=== PATIENT | female | born 1985 | race Caucasian/White ===

== ENCOUNTER → 2017-11-16 12:05 | Outpatient (CLI) | payer OTHER, SELFPAY ==
[2017-11-16 13:29] LABS: HCG Quantitative /Beta subunit 395.89 mIU/mL
== END ==
PROVIDERS: PCP Family Medicine; Visit Provider Family Medicine
DX: Z34.90 Encounter for supervision of normal pregnancy, unspecified, unspecified trimester (principal)
CPT/HCPCS: 36415; 84702

== ENCOUNTER → 2017-11-18 12:31 | Outpatient (CLI) | payer OTHER, SELFPAY ==
[2017-11-18 14:32] LABS: HCG Quantitative /Beta subunit 1171.5 mIU/mL
== END ==
PROVIDERS: PCP Family Medicine; Visit Provider Family Medicine
DX: N91.2 Amenorrhea, unspecified (principal)
CPT/HCPCS: 36415; 84702

== ENCOUNTER → 2017-12-17 09:46 | Outpatient (CLI) | payer OTHER, SELFPAY ==
[2017-12-17 10:23] LABS: Add Manual Diff / Slide Review NO; Basophils Percent Auto 0.3 % (0-2); Eosinophils Percent Auto 2.5 % (2-4); Hematocrit 42.2 % (36-46); Hemoglobin 14.2 g/dL (12.0-16.0); Lymphocytes Percent Auto 18.7 % (25-40); Mean Corpuscular HGB Conc 33.7 % (30-36); Mean Corpuscular Hemoglobin 28.9 PG (26-34); Mean Corpuscular Volume 85.9 fL (80-100); Monocytes Percent Auto 4.8 % (3-14); Neutrophils Absolute Auto 5200 /uL (3000-5900); Neutrophils Percent Auto 73.7 % (50-75); Platelet Count 207 X10^3/uL (150-400); Red Blood Cell Count 4.92 X10^6/uL (4.0-5.2); Red Cell Distribution Width 13.5 % (11.6-14.8)
[2017-12-17 11:31] LABS: Hepatitis B Surface Antigen NEGATIVE s/c (NEGATIVE); Rubella Antibody IgG 4.8 IU/mL (>15)
[2017-12-17 11:40] LABS: Appearance Urine UA SL CLOUDY; Bilirubin Urine UA NEGATIVE (NEGATIVE); Color Urine UA YELLOW; Glucose Urine UA NEGATIVE (Normal); Ketones Urine UA TRACE (NEGATIVE); Leukocyte Esterase Urine UA TRACE (NEGATIVE); Nitrite Urine UA Negative (Negative); Occult Blood Urine UA NEGATIVE (Negative); Protein Urine UA 1+ (Negative)
[2017-12-17 11:41] LABS: Bacteria Urine None Seen
[2017-12-17 11:45] LABS: RBC Urine 0-1/HPF (0-5/HPF)
[2017-12-17 11:46] LABS: Mucus Urine 2+ (Negative); Squamous Epithelial Cell Urine 5-10 /HPF; WBC Urine 0-1/HPF (0-5/HPF)
[2017-12-17 11:48] LABS: HIV 1 and 2 Antibody NEGATIVE (NEGATIVE); Hep C Virus Ab w/Reflex Quant NEGATIVE s/c (NEGATIVE)
[2017-12-18 15:12] LABS: HSV 2 IGG AB < 0.90 index (< 0.90); HSV1IGG 1.98 index (< 0.90)
[2017-12-18 16:30] LABS: RPR Screen Nonreactive (Nonreactive)
== END ==
PROVIDERS: PCP Family Medicine; Visit Provider Family Medicine
DX: Z34.81 Encounter for supervision of other normal pregnancy, first trimester (principal); Z3A.01 Less than 8 weeks gestation of pregnancy
CPT/HCPCS: 36415; 80055; 81003; 81015; 86695; 86696; 86703; 86787; 86803; 86850; 86900; 86901; 87077; 87086

== ENCOUNTER → 2018-02-25 08:19 | Outpatient (CLI) | payer OTHER, SELFPAY ==
--- NOTE | 2018-02-25 08:20 | DI.US.S_ITS ---
PROCEDURE: US OB >= 14 WEEKS FETUS INDICATIONS: 14 weeks OUTSIDE/PRIOR DATING DATA: Last menstrual period (LMP): Unknown. LMP-based estimated date of delivery (AKIN): N./A.. First dating scan (date and location): 12/21/17. Estimated date of delivery (AKIN) from first dating scan: 07/24/18. TECHNIQUE: Real-time scanning was performed of the fetus, with image documentation and biometric measurements. Endovaginal scanning: No COMPARISON: None. FINDINGS: General: A single living intrauterine gestation is present. Presentation: Breech. Placenta: Placental position is anterior, without previa. Amniotic fluid index: 14.8 cm, normal range is 5-24 cm. heart rate: 137 beats per minute. Maternal cervical canal: 4.1 cm long. Normal lower limit is 2.5 cm. biometrics: Biparietal diameter: 19 weeks 4 days Head circumference: 19 weeks 2 days Abdominal circumference: 19 weeks 6 days Femur length: 19 weeks 6 days Estimated gestational age from initial scan: 18 weeks 5 days Composite gestational age from present scan: 19 weeks 3 days Estimated weight and percentile: 280 g; 82nd percentile Measurement variability for biometric dating: +/- 7 days from 14 weeks to 15 weeks 6 days gestation, +/- 10 days from 16 weeks to 21 weeks 6 days gestation, +/- 2 weeks from 22 weeks to 27 weeks 6 days gestation, +/- 3 weeks for 28 weeks gestation or later. weight reference: 4500 g or EFW >90/95% is considered macrosomia or large for gestational age. EFW <10% is small for gestational age. EFW 5% or less is considered intra-uterine growth restriction. Anatomic survey: Neuro: Ventricles are non-dilated at less than 10 mm. Cisterna magna is normal at 3-11 mm. Cerebellum is normal in size and morphology. Nuchal skin fold: Normal at less than 6 mm between 14-21 weeks gestational age. Face: Nose and lips, facial profile are normal. Spine: No evidence for spina bifida. Heart: 4-chambered heart is present, with normal ventricular outflow tracts. Diaphragm: Diaphragm is intact. Stomach: Left-sided stomach is present. Kidneys: No hydronephrosis. Normal is less than 5 mm in 2nd trimester, less than 7 mm in 3rd trimester. Cord: 3-vessel cord has orthotopic insertion. Bladder: Normal in size. Extremities: All 4 extremities identified. IMPRESSION: 1. Single living IUP redemonstrated and interval growth is normal. 2. Normal anatomic survey. Dictated by: Rasta LUA Interpreted: Macey Moore MD on 02/25/2018 at 10:27 Approved by: Macey Moore M.D. on 02/25/2018 at 15:52
== END ==
PROVIDERS: PCP Family Medicine; Visit Provider Family Medicine
DX: Z34.82 Encounter for supervision of other normal pregnancy, second trimester (principal); Z3A.19 19 weeks gestation of pregnancy
CPT/HCPCS: 76811

== ENCOUNTER → 2018-04-27 09:48 | Outpatient (CLI) | payer OTHER, SELFPAY ==
[2018-04-27 12:11] LABS: Add Manual Diff / Slide Review NO; Basophils Absolute Auto 0 /uL (0-100); Basophils Percent Auto 0.2 % (0-2); Eosinophils Absolute Auto 100 /uL (0-450); Eosinophils Percent Auto 1.5 % (2-4); Hematocrit 35.7 % (36-46); Hemoglobin 11.8 g/dL (12.0-16.0); Lymphocytes Absolute Auto 1600 /uL (1100-4500); Lymphocytes Percent Auto 19.7 % (25-40); Mean Corpuscular HGB Conc 33.1 % (30-36); Mean Corpuscular Hemoglobin 29.2 PG (26-34); Mean Corpuscular Volume 88.3 fL (80-100); Monocytes Absolute Auto 300 /uL (0-900); Monocytes Percent Auto 4.2 % (3-14); Neutrophils Absolute Auto 6200 /uL (1500-7000); Neutrophils Percent Auto 74.4 % (50-75); Platelet Count 164 X10^3/uL (150-400); Red Blood Cell Count 4.05 X10^6/uL (4.0-5.2); Red Cell Distribution Width 13.7 % (11.6-14.8); White Blood Cell Count 8.3 X10^3/uL (4.5-11.0)
[2018-04-27 12:38] LABS: GTT (PREG) 1 Hour PP 50gm Dose 126 mg/dL (76-139)
== END ==
PROVIDERS: PCP Family Medicine; Visit Provider Family Medicine
DX: Z3A.25 25 weeks gestation of pregnancy (principal)
CPT/HCPCS: 36415; 82950; 85025

== ENCOUNTER → 2018-05-05 13:00 | Oncology outpatient (ONC) | payer OTHER, SELFPAY ==
[2018-01-10] MEDS: SODIUM CHLORIDE 0.9% 1,000 ML 1000 ML IV (13:11)
[2018-01-10 13:17] VITALS: BP 108/74; PULSE 58; RESP 18; TEMP 36.7
[2018-01-12] MEDS: SODIUM CHLORIDE 0.9% 1,000 ML 999 ML IV (13:41)
[2018-01-12 13:42] VITALS: BP 122/66; PULSE 62; RESP 16; TEMP 36.6
[2018-02-04] MEDS: SODIUM CHLORIDE 0.9% 1,000 ML 1000 ML IV (12:57)
[2018-02-04 13:00] VITALS: BP 115/54; PULSE 70; RESP 16; TEMP 36.7
--- NOTE | 2018-02-04 14:17 | PC.NURSE ---
Pt seen in clinic today for IV fluids. Pt reports nausea pretty much all the time. Pt currently about 16 week . Able to eat small portions. Denies chest pain and SOB. Denies dizziness and chest pain. Denies issues with bowel and bladder. Conversing with staff appropriately.
[2018-02-22 13:30] VITALS: BP 110/64; PULSE 82; RESP 18; TEMP 36.7; O2SAT 100
[2018-02-22] MEDS: SODIUM CHLORIDE 0.9% 1,000 ML 1000 ML IV (13:31)
[2018-02-25 13:11] VITALS: BP 120/64; PULSE 60; RESP 18; TEMP 36.6; O2SAT 100
[2018-02-25] MEDS: SODIUM CHLORIDE 0.9% 1,000 ML 1000 ML IV (13:23)
[2018-05-05] MEDS: SODIUM CHLORIDE 0.9% 1,000 ML 1000 ML IV (13:51)
== END ==
PROVIDERS: PCP Family Medicine; Visit Provider Family Medicine
DX: O21.0 Mild hyperemesis gravidarum (principal)
CPT/HCPCS: 76811; 96360; 96365

== ENCOUNTER → 2018-05-19 13:43 | Outpatient (CLI) | payer OTHER, SELFPAY ==
--- NOTE | 2018-05-19 13:45 | DI.US.S_ITS ---
PROCEDURE: US OB LIMITED INDICATIONS: SIZE LESS THAN DATES, CERVICAL LENGTH OUTSIDE/PRIOR DATING DATA: Last menstrual period (LMP): Unknown. LMP-based estimated date of delivery (AKIN): N./A.. First dating scan (date and location): 12/21/2017. Estimated date of delivery (AKIN) from first dating scan: 07/24/2018. TECHNIQUE: Real-time scanning was performed of the fetus, with image documentation and biometric measurements. COMPARISON: None. FINDINGS: General: A single living intrauterine gestation is present. Presentation: Vertex Placenta: Placental position is anterior, without previa. Amniotic fluid index: 16.1 cm, normal range is 5-24 cm. heart rate: 150 beats per minute. Maternal cervical canal: 4.2 cm long. Normal lower limit is 2.5 cm. biometrics: Biparietal diameter: 7.9 cm, correlating with 31 weeks and 6 days. Head circumference: 29.5 cm, correlating with 32 weeks and 4 days. Abdominal circumference: 30.3 cm, correlating with 34 weeks and 2 days. Femur length: 6.2 cm, correlating with 31 weeks and 6 days. Estimated gestational age from initial scan: not applicable. Composite gestational age from present scan: 32 weeks and 5 days Estimated weight and percentile: 2143 g, correlating with the 99th percentile Measurement variability for biometric dating: +/- 7 days from 14 weeks to 15 weeks 6 days gestation, +/- 10 days from 16 weeks to 21 weeks 6 days gestation, +/- 2 weeks from 22 weeks to 27 weeks 6 days gestation, +/- 3 weeks for 28 weeks gestation or later. weight reference: 4500 g or EFW >90/95% is considered macrosomia or large for gestational age. EFW <10% is small for gestational age. EFW 5% or less is considered intra-uterine growth restriction. Other: Not applicable. IMPRESSION: Single living intrauterine gestation with an estimated sonographic gestational age of approximately 32 weeks and 5 days. The estimated weight is approximately 2143 g which correlates with the 99th percentile for gestational age. Dictated by: Rachid Bridges M.D. on 05/20/2018 at 13:10 Approved by: Rachid Bridges M.D. on 05/20/2018 at 13:15
== END ==
PROVIDERS: PCP Family Medicine; Visit Provider Family Medicine
DX: O36.5930 Maternal care for other known or suspected poor fetal growth, third trimester, not applicable or unspecified (principal); Z3A.32 32 weeks gestation of pregnancy
CPT/HCPCS: 76815

== ENCOUNTER → 2018-06-22 08:25 | Outpatient (CLI) | payer OTHER, SELFPAY ==
--- NOTE | 2018-06-22 08:26 | DI.US.S_ITS ---
PROCEDURE: US OB LIMITED INDICATIONS: LGA OUTSIDE/PRIOR DATING DATA: Last menstrual period (LMP): Unknown. LMP-based estimated date of delivery (AKIN): N./A.. First dating scan (date and location): 12/21/2017. Estimated date of delivery (AKIN) from first dating scan: 07/24/2018. TECHNIQUE: Real-time scanning was performed of the fetus, with image documentation and biometric measurements. Endovaginal scanning: No COMPARISON: [facility] OB LIMITED, 05/19/2018, 14:03. [facility] OB >= 14 WEEKS FETUS, 03/25/2018, 14:31. [facility] OB >= 14 WEEKS FETUS, 02/25/2018, 8:44. FINDINGS: General: A single living intrauterine gestation is present. Presentation: Vertex. Placenta: Placental position is anterior, without previa. Amniotic fluid index: 13.7 cm, normal range is 5-24 cm. heart rate: 150 beats per minute. Maternal cervical canal: Not well-visualized. biometrics: Biparietal diameter: 36 weeks 4 days Head circumference: 38 weeks 5 days Abdominal circumference: 38 weeks Femur length: 37 Mitch Estimated gestational age from initial scan: 35 weeks 3 days Composite gestational age from present scan: 37 weeks 4 days Estimated weight and percentile: 3270 g; 96 percentile Measurement variability for biometric dating: +/- 7 days from 14 weeks to 15 weeks 6 days gestation, +/- 10 days from 16 weeks to 21 weeks 6 days gestation, +/- 2 weeks from 22 weeks to 27 weeks 6 days gestation, +/- 3 weeks for 28 weeks gestation or later. weight reference: 4500 g or EFW >90/95% is considered macrosomia or large for gestational age. EFW <10% is small for gestational age. EFW 5% or less is considered intra-uterine growth restriction. Other: Not applicable. IMPRESSION: Single living IUP redemonstrated and interval growth is greater than expected with estimated weight 96 percentile. Macrosomia cannot be excluded. Dictated by: Rasta LUA Interpreted: García Mendez MD on 06/22/2018 at 11:26 Approved by: García Mendez M.D. on 06/22/2018 at 11:44
== END ==
PROVIDERS: PCP Family Medicine; Visit Provider Family Medicine
DX: O36.63X0 Maternal care for excessive fetal growth, third trimester, not applicable or unspecified (principal); Z3A.37 37 weeks gestation of pregnancy
CPT/HCPCS: 76815

== ENCOUNTER → 2018-06-28 11:25 | Outpatient (CLI) | payer OTHER, SELFPAY ==
[2018-06-29 08:33] LABS: Strep Grp B PCR NEG for Grp B Strep
== END ==
PROVIDERS: PCP Family Medicine; Visit Provider Family Medicine
DX: Z34.83 Encounter for supervision of other normal pregnancy, third trimester (principal); Z3A.36 36 weeks gestation of pregnancy
CPT/HCPCS: 87653

== ENCOUNTER 2018-07-04 12:50 | Observation (INO) | payer OTHER, SELFPAY ==
--- NOTE | 2018-07-04 13:16 | PM.OBTRLD ---
Visit Information Visit Information Date of evaluation: 07/04/18 Primary OB Provider: Kathryn Leyva Reason for Evaluation: Yes other Comments/Additional reasons for admission: dehydration from hyperemesis [facility] Social History marital status: number of children: 2 household members: family lives independently: Yes caregiver/support person: No housing: house occupational status: employed Smoking Status: Never smoker second hand exposure: No alcohol intake: current (not while ) substance use type: does not use Evaluation Evaluation Baseline heart rate: 140 Variability: Moderate (11-25) monitor accelerations: Present monitor decelerations: Absent Category of Tracing: I Diagnosis, Plan/Disposition Final Diagnosis (1) Hyperemesis gravidarum: Current Visit: Yes Status: Chronic Plan/Disposition Plan: Received IVF in the center for rehydration today due to inability to schedule with the infusion clinic. Vitals stable. OB Disposition: home
--- NOTE | 2018-07-04 13:20 | P.TNLD_ITS ---
Visit Information Visit Information Date of evaluation: 07/04/18 Primary OB Provider: Kathryn Levya Reason for Evaluation: Yes other Comments/Additional reasons for admission: dehydration from hyperemesis [facility] Social History marital status: number of children: 2 household members: family lives independently: Yes caregiver/support person: No housing: house occupational status: employed Smoking Status: Never smoker second hand exposure: No alcohol intake: current (not while ) substance use type: does not use Evaluation Evaluation Baseline heart rate: 140 Variability: Moderate (11-25) monitor accelerations: Present monitor decelerations: Absent Category of Tracing: I Diagnosis, Plan/Disposition Final Diagnosis (1) Hyperemesis gravidarum: Current Visit: Yes Status: Chronic Plan/Disposition Plan: Received IVF in the center for rehydration today due to inability to schedule with the infusion clinic. Vitals stable. OB Disposition: home
[2018-07-04] MEDS: LACTATED RINGERS 1,000 ML 1000 ML IV (13:30)
== END 2018-07-04 14:35 | disposition home or self-care (01) ==
PROVIDERS: Admitting Provider Family Medicine; PCP Family Medicine; Visit Provider Family Medicine
DX: O21.0 Mild hyperemesis gravidarum (principal); Z3A.37 37 weeks gestation of pregnancy
CPT/HCPCS: 59025; 96360; G0378; G0379

== ENCOUNTER → 2018-07-14 11:49 | Outpatient (CLI) | payer OTHER, SELFPAY ==
--- NOTE | 2018-07-14 11:50 | DI.US.S_ITS ---
PROCEDURE: US OB LIMITED INDICATIONS: SIZE > DATES, LARGE FOR GESTATIONAL AGE, GROWTH OUTSIDE/PRIOR DATING DATA: Last menstrual period (LMP): Unknown. LMP-based estimated date of delivery (AKIN): N./A.. First dating scan (date and location): 12/21/2017. Estimated date of delivery (AKIN) from first dating scan: 07/24/2018.. TECHNIQUE: Real-time scanning was performed of the fetus, with image documentation and biometric measurements. Endovaginal scanning: Not performed. COMPARISON: [facility], OB LIMITED, 06/22/2018, 8:30. FINDINGS: General: A single living intrauterine gestation is present. Presentation: Vertex. Placenta: Placental position is anterior, without previa. Amniotic fluid index: 20.3 cm, normal range is 5-24 cm. heart rate: 120 beats per minute. Maternal cervical canal: Not well-seen. biometrics: Biparietal diameter: 37 weeks 6 days Head circumference: 40 weeks 4 days Abdominal circumference: 40 weeks 4 days Femur length: 36 weeks 2 days Estimated gestational age from initial scan: 38 weeks 4 days Composite gestational age from present scan: 38 weeks 6 days Estimated weight and percentile: 3751 g; 83rd percentile Measurement variability for biometric dating: +/- 7 days from 14 weeks to 15 weeks 6 days gestation, +/- 10 days from 16 weeks to 21 weeks 6 days gestation, +/- 2 weeks from 22 weeks to 27 weeks 6 days gestation, +/- 3 weeks for 28 weeks gestation or later. weight reference: 4500 g or EFW >90/95% is considered macrosomia or large for gestational age. EFW <10% is small for gestational age. EFW 5% or less is considered intra-uterine growth restriction. Other: Not applicable. IMPRESSION: Normal interval growth. Dictated by: Rasta Clifton [facility] Interpreted: Austin Rowley MD on 07/14/2018 at 13:56 Approved by: Austin Rowley M.D. on 07/14/2018 at 14:12
== END ==
PROVIDERS: PCP Family Medicine; Visit Provider Family Medicine
DX: O36.63X0 Maternal care for excessive fetal growth, third trimester, not applicable or unspecified (principal); Z3A.38 38 weeks gestation of pregnancy
CPT/HCPCS: 76815

== ENCOUNTER 2018-07-25 11:20 | Observation (INO) | payer OTHER, SELFPAY ==
--- NOTE | 2018-07-25 13:34 | PM.OBTRLD ---
Visit Information Visit Information Date of evaluation: 07/25/18 Primary OB Provider: Kathryn Leyva Reason for Evaluation: Yes rule out labor PFSH Social History marital status: number of children: 2 household members: family lives independently: Yes caregiver/support person: No housing: house occupational status: employed Smoking Status: Never smoker second hand exposure: No alcohol intake: current (not while ) substance use type: does not use Evaluation Evaluation Baseline heart rate: 140 Variability: Moderate (11-25) monitor accelerations: Present monitor decelerations: Absent Category of Tracing: I Cervical dilation (cm): 4 Cervical effacement (%): 50 station: -3 Diagnosis, Plan/Disposition Final Diagnosis (1) Hyperemesis gravidarum: Current Visit: No Status: Chronic (2) Post-dates : Current Visit: Yes Status: Acute Plan/Disposition Plan: Pt not currently in active labor. Membranes swept today. FHT reactive. Receiving 1L IVF due to hyperemesis and decreased PO intake over the weekend. F/U in clinic tomorrow. OB Disposition: home
[2018-07-25] MEDS: LACTATED RINGERS 1,000 ML 1000 ML IV (13:57)
== END 2018-07-25 15:00 | disposition home or self-care (01) ==
LOC: AC 11:23 → LABOR 12:00
PROVIDERS: Admitting Provider Family Medicine; PCP Family Medicine; Visit Provider Family Medicine
DX: O21.0 Mild hyperemesis gravidarum (principal); O48.0 Post-term pregnancy; Z3A.40 40 weeks gestation of pregnancy
CPT/HCPCS: 59025; 59050; 96360; G0378; G0379

== ENCOUNTER 2018-07-26 09:46 | Inpatient (IN) | payer OTHER, SELFPAY ==
[2018-07-26] MEDS: OXYTOCIN 10 UNIT/ML VIAL IM (11:00)
--- NOTE | 2018-07-26 13:00 | PM.OBHP.1 ---
OB HPI Date/Time Date of admission: 07/26/18 Date Patient Seen: 07/26/18 Time Patient Seen: 10:15 History of Present Condition Chief complaint: OBSERVATION : 4 Para: 2 Estimated Date of Delivery: 07/20/18 Estimated Gestational Age (weeks): 40w6d Narrative: Brittney Infante is a 33 year old at 40w6d who presented in active labor. Pt reports having regular contractions starting around 8:20am. They have been increasing in intensity and frequency since then. No LOF or vaginal bleeding. History of Present care: good care and initiated at week # (9) Dating criteria: LMP confirmed by 1st trimester US Ultrasounds: normal mid trimester US Obstetrical complications: hyperemesis and other (LGA - resolved) Medical complications: none Preadmission Labs Blood type: A (+) positive -: Antibody screen: negative, GBS status: negative, HBsAG: negative, HIV: negative, HSV 1: positive, HSV 2: negative and RPR/VDLR: negative -: Rubella: not immune and Varicella: immune HCT: 35.7 HCAB: negative 1 hr GTT: 126 Prior (ies) History: 01/2010 - at 41wks, 7lb9oz 08/2013 - at 41wks, 9lb0oz 11/2016 - SAB Evaluation Evaluation Baseline heart rate: 150 Variability: Moderate (11-25) monitor accelerations: Absent monitor decelerations: Absent Contraction Frequency (minutes): 3 Uterine Contraction Intensity: Strong/Firm Category of Tracing: I Cervical dilation (cm): 10 Cervical effacement (%): 100 station: 0 PFSH Social History marital status: number of children: 2 household members: family lives independently: Yes caregiver/support person: No housing: house occupational status: employed Smoking Status: Never smoker second hand exposure: No alcohol intake: current (not while ) substance use type: does not use Meds Home Medications Medication Instructions Recorded Confirmed Type albuterol sulfate 1.25 mg INH #0 03/08/17 03/10/18 History famotidine 10 mg tablet 10 mg PO DAILY 11/16/17 03/10/18 History 1 tab PO DAILY 11/16/17 03/10/18 History vitamin,calcium,tqknyckl-byow-wyfvq acid tablet calcium carbonate 500 mg calcium 500 mg PO TID PRN tab 12/17/17 03/10/18 History (1,250 mg) chewable tablet albuterol sulfate HFA 90 2 puff INHALATION QID PRN #1 ea 03/10/18 Rx mcg/actuation aerosol inhaler albuterol sulfate concentrate 2.5 2.5 mg INHALATION QID PRN #30 each 03/18/18 Rx mg/0.5 mL solution for nebulization Allergies Allergy/AdvReac Type Severity Reaction Status Date / Time No Known Drug Allergies Allergy Unverified 03/10/18 09:08 Exam Narrative Exam Narrative: Gen: very uncomfortable in bed, screaming out in pain CV: RRR, no murmurs Resp: clear to auscultation bilaterally Abd: gravid, nondistended Ext: trace edema Assessment and Plan Assessment and Plan Assessment and Plan narrative: 33yo at 40w6d who presented in active labor, now at complete dilation. GBS negative, Rh positive. - Expectant management, anticipate - Natural methods for pain control desired - FHT reassuring - GBS negative, no antibiotics indicated
--- NOTE | 2018-07-26 13:54 | P.PCNOB_ITS ---
Delivery date: 07/26/18 Intrapartal events: Precipitous Labor < 3 hours Cervical ripening method: none Induction method: none Delivery augmentation: rupture of membranes Delivery monitor: external FHT Route of delivery: Episiotomy description: None L&D Laceration Description: None Estimated blood loss (mL): 300 Complications: None Narrative: PROCEDURE: at 40w6d presented in active labor and was admitted to Labor and Delivery. The patient progressed through the 1st stage over 2.5 hours. Pain was controlled with natural methods. AROM was performed when the pt was complete and +1 station, with thick meconium noted. The patient progressed through the 2nd stage over 15 minutes and delivered a viable female infant with APGARs 9/9 at 10:49am via . The perineum and vagina were inspected with no lacerations. PREPROCEDURE DIAGNOSIS: Intrauterine at 40w6d GBS negative RH positive Hyperemesis gravidarum POSTPROCEDURE DIAGNOSIS: Intrauterine at 40w6d, delivered Same as preprocedure ROM APPEARANCE: Meconium BABY A DELIVERY TIME: BABY A OUTCOME: Viable BABY A WEIGHT: 9lb0.4oz, 4096g BABY A NUCHAL CORD: x1, reduced at the perineum BABY A # CORD VESSELS: 3 BABY A CORD GASES OBTAINED: No PLACENTA DELIVERY TIME: 10:58 AM PLACENTA APPEARANCE: Intact [place] Baby 1: Infant gender: Female Presentation: vertex position: Right Occiput Anterior Placenta delivery description: Spontaneous cord vessel description: 3 Vessels score (1 min): 9 score (5 min): 9 Plan for aftercare: Normal care
[2018-07-26 18:16] VITALS: BP 124/76
--- NOTE | 2018-07-27 08:23 | PM.OBDS.1 ---
Discharge Providers Date of admission: 07/26/18 09:46 Discharge Date: 07/27/18 Primary care physician: Kathryn Leyva MD Consults: 07/26/18 13:29 Consult to Organic Preparation Technician Routine Comment: Discharge provider: Kathryn Leyva MD Summary Date Patient Seen: 07/27/18 Time Patient Seen: 08:00 Procedures: Spontaneous vaginal delivery Hospital Course: The patient presented in active labor. She had a precipitous spontaneous vaginal delivery of a viable baby girl on 07/26/2018 without any complications. There were no lacerations. The patient was GBS negative. Apgars were 9/9 and the baby weighed 9 lb 0.4 oz. , there were no complications. At the time of discharge the patient was voiding, ambulating, and passing flatus without difficulty. Her lochia was decreasing appropriately. Her pain was adequately controlled. She was breast-feeding with good latch. The patient will follow up in clinic in 6 weeks. They plan on vasectomy for contraception. Peripartum Data Infant Delivery Method: Natural Vaginal Laceration description: None Episiotomy description: None Procedures: Spontaneous vaginal delivery complications: none 1: Gender: Female Disposition of : home Discharge Diagnosis (1) Spontaneous vaginal delivery: Status: Acute Status at Discharge Cognitive/behavioral status at discharge: oriented Functional status at discharge: independent ambulation Overall status at discharge: patient is progressing back to baseline Time Spent with Patient Total time spent providing and/or coordinating discharge services: Greater than 30 minutes Exam Narrative Exam Narrative: General: No acute distress, sitting comfortably in bed, appears well CV: Regular rate and rhythm, no murmurs Respiratory: Clear to auscultation bilaterally Abdomen: Soft, nondistended, nontender, fundus firm below the umbilicus Extremities: Trace edema Discharge Plan Discharge Plan Patient Disposition: Home Discharge Med Rec/Prescriptions Prescriptions: New acetaminophen 325 mg Tablet 650 mg PO Q6HR PRN (Reason: Pain, Mild (1-3)) Qty: 30 RF: 0 Dermoplast (with menthol) 20-0.5 % Aerosol 1 spray topical Q1HR PRN (Reason: perineal pain) Qty: 15 RF: 0 ibuprofen 600 mg Tablet 600 mg PO Q6HR PRN (Reason: Pain, Mild (1-3)) Qty: 30 RF: 0 docusate sodium 250 mg Capsule 250 mg PO DAILY Qty: 30 RF: 0 Qqi-O-Pxotiv Cream 1 applic topical PRN PRN (Reason: Tenderness) Qty: 15 RF: 0 Continued calcium carbonate 500 mg calcium (1,250 mg) tablet,chewable 500 mg PO TID PRNRF: 0 albuterol sulfate 2.5 mg/0.5 mL solution for nebulization 2.5 mg INHALATION QID PRN (Reason: shortness of breath or wheezing) Qty: 30 RF: 2 albuterol sulfate [Ventolin HFA] 90 mcg/actuation HFA aerosol inhaler 2 puff INHALATION QID PRN (Reason: shortness of breath or wheezing) Qty: 1 RF: 0 famotidine 10 mg tablet 10 mg PO DAILY RF: 0 prenat.vits,shilpa,pzs-krje-otlzy tablet 1 tab PO DAILY RF: 0 Discontinued albuterol sulfate 1.25 MG/3 ML solution for nebulization 1.25 mg INH Qty: 0 RF: 0 Follow up/Referrals: Kathryn Leyva MD [Primary Care Provider] - 6 Weeks Provider Discharge Instructions Diet: Regular Activity: No intercourse for 6 weeks No heavy lifting for 2 weeks Skin/Wound/Dressing Care Report to your healthcare provider any signs of infection, such as:: chills, fever, increased pain and unusual drainage Visit Report/Discharge Packet Instructions: DI for Labor and Delivery, Vaginal Discharge Data Primary Care Provider: Kathryn Leyva Attending Provider: Kathryn Leyva Admit Date/Time: 07/26/18 09:46
[2018-07-27 11:25] VITALS: BP 124/76; PULSE 60; RESP 18; TEMP 37.1
[2018-07-27 11:30] VITALS: BP 124/76; PULSE 60; RESP 18; TEMP 37.1
[2018-07-27 12:50] LABS: Add Manual Diff / Slide Review NO; Basophils Absolute Auto 100 /uL (0-100); Basophils Percent Auto 0.6 % (0-2); Eosinophils Absolute Auto 100 /uL (0-450); Eosinophils Percent Auto 1.3 % (2-4); Hematocrit 38.9 % (36-46); Hemoglobin 12.9 g/dL (12.0-16.0); Lymphocytes Absolute Auto 2100 /uL (1100-4500); Lymphocytes Percent Auto 18.8 % (25-40); Mean Corpuscular HGB Conc 33.2 % (30-36); Mean Corpuscular Hemoglobin 28.8 PG (26-34); Mean Corpuscular Volume 86.8 fL (80-100); Monocytes Absolute Auto 500 /uL (0-900); Monocytes Percent Auto 4.4 % (3-14); Neutrophils Absolute Auto 8200 /uL (1500-7000); Neutrophils Percent Auto 74.9 % (50-75); Platelet Count 176 X10^3/uL (150-400); Red Blood Cell Count 4.48 X10^6/uL (4.0-5.2)
== END 2018-07-27 12:55 | disposition home or self-care (01) | DRG 807 ==
PROVIDERS: Admitting Provider Family Medicine; PCP Family Medicine; Visit Provider Family Medicine
DX: O69.81X0 Labor and delivery complicated by cord around neck, without compression, not applicable or unspecified (principal); Z37.0 Single live birth; Z3A.40 40 weeks gestation of pregnancy; O77.0 Labor and delivery complicated by meconium in amniotic fluid
CPT/HCPCS: 36415; 59050; 59400; 85025; G0379; J2590

== ENCOUNTER → 2018-09-09 16:43 | Outpatient (CLI) | payer OTHER, SELFPAY ==
--- NOTE | 2018-09-09 16:45 | DI.MRI.S_ITS ---
PROCEDURE: MR LUMBAR SPINE WO CON INDICATIONS: left leg numbness lateral thigh, persistent; fam hx MS TECHNIQUE: Noncontrast sagittal T1 spin echo and T2 fast echo, sagittal STIR, axial T1 and T2 fast spin echo through the lumbar spine. In cases with scoliosis, additional coronal T2 fast spin echo may be performed. COMPARISON: None. FINDINGS: Image quality: Excellent. Alignment and Curvature: There is normal bony alignment. Bone Marrow: Marrow is of normal overall signal. No acute vertebral body compression fractures. Spinal Cord: Conus medullaris terminates at the L1 level. Visualized cord demonstrates normal signal and size. Paraspinous Soft Tissues: No paravertebral masses. L1-L2: Normal appearance. L2-L3: Normal appearance. L3-L4: Normal appearance. L4-L5: Mild degenerative disc disease with the posterior transverse disc bulge this is slightly greater at into the right of midline than to the left. This does not appreciably impinge on Imdur and visual nerve roots, but the right-sided neural foramen is mildly stenosed as a result. L5-S1: The degenerative disc disease at this level is mild, slightly less than at the level above, and there is a broad-based posterior transverse disc bulge at L5-S1 which does not significantly distort the adjacent thecal sac or impinge on individual nerve roots. IMPRESSION: A definite source of left-sided symptomatology is not seen. Degenerative disc disease is absent from the low thoracic spine through the L3-4 disc level. At L4-5 there is an asymmetric midline and right paramedian disc bulge which results in mild foraminal stenosis on the right. There is potential for mild impingement on the course of the right L4 nerve root. At L5-S1 the disc disease is minimal and does not result in spinal or foraminal stenosis. Dictated by: Zachery Acevedo M.D. on 09/12/2018 at 11:44 Approved by: Zachery Acevedo M.D. on 09/12/2018 at 11:48
== END ==
PROVIDERS: PCP Family Medicine; Visit Provider Family Medicine
DX: R20.0 Anesthesia of skin (principal); M48.061 Spinal stenosis, lumbar region without neurogenic claudication
CPT/HCPCS: 72148

== ENCOUNTER 2018-10-06 07:21 | Observation (INO) | payer OTHER, SELFPAY ==
[2018-10-06] VITALS (14 sets, daily range): BP systolic 101–144; BP diastolic 47–91; PULSE 60–111; RESP 9–22; TEMP 36.8–37.5; O2SAT 93–100; BMI 32.5; BMI 31.7
--- NOTE | 2018-10-06 | PATH_ITS ---
[facility] Accession Number: [id number] . 01 Material submitted: . gallbladder - GALLBLADDER . 02 Diagnosis: Gallbladder, Cholecystectomy: Mild chronic active cholecystitis. No evidence of neoplasm. MRV/10/10/2018 . 02 Electronically signed: . Alex Gr MD, PhD, Pathologist NPI- [id number] . 01 Gross description: . Received in formalin, labeled gallbladder, is an opened gallbladder (length-9.4 cm, diameter-3.0 cm) with torres-purple smooth shiny mucosa and a patent cystic duct. No lymph nodes are identified. The lumen is empty. The mucosa is brown-green and diffusely bosselated. The wall is up to 0.1 cm thick. No nodules, masses or lesions are identified. Also submitted is a green hard and focally friable calculus (2.3 x 2.2 x 1.7 cm). Section code: (A1) cystic duct resection margin and two serial sections from the body; (A2) two longitudinal sections from the fundus. ([id number]) /MRV . 02 Pathologist provided ICD-10: K81.2 . 02 CPT . 158955 Performed at: 01 [facility] [address], [place], [place] [id number] MD Albert Neil MD Phone: [phone] Performed at: 02 [facility] [address] [place], [place] [id number] MD Jaceklyn العراقي MD Phone: [phone]
--- NOTE | 2018-10-06 07:36 | DI.US.S_ITS ---
PROCEDURE: US ABDOMEN LIMITED INDICATIONS: RIGHT UPPER QUADRANT PAIN TECHNIQUE: Real-time scanning was performed of the abdominal and retroperitoneal organs, with image documentation. COMPARISON: None. FINDINGS: Liver: Liver is relatively poorly seen due to body habitus, quality of visualization would be improved by CT scanning. Gallbladder: There is a 2.1 cm stone lodged within the gallbladder neck but the gallbladder wall is not abnormally thickened. There is tenderness during sonographic palpation over the gallbladder. Biliary ducts: Intrahepatic bile ducts are non-dilated. Extrahepatic bile duct caliber measures 5.4 mm. Normal is 6-7 mm or less in diameter, or 10 mm or less post-cholecystectomy. Pancreas: Not seen due to bowel gas and body habitus. Miscellaneous: No free abdominal fluid. IMPRESSION: Quality of visualization is significantly limited by bowel gas and body habitus. A 2.1 cm calculus is found lodged within the gallbladder neck, and there is tenderness associated with this finding but currently the gallbladder wall is not abnormally thickened and no adjacent biliary distention is found. Acute cholecystitis, however, is suspected in this clinical circumstance. Dictated by: Zachery Acevedo M.D. on 10/06/2018 at 8:49 Approved by: Zachery Acevedo M.D. on 10/06/2018 at 8:52
[2018-10-06] MEDS: SODIUM CHLORIDE 0.9% 1,000 ML 1000 ML IV (07:43)
[2018-10-06 07:44] LABS: Add Manual Diff / Slide Review NO; Basophils Absolute Auto 0 /uL (0-100); Basophils Percent Auto 0.4 % (0-2); Eosinophils Absolute Auto 100 /uL (0-450); Eosinophils Percent Auto 0.8 % (2-4); Hematocrit 44.4 % (36-46); Hemoglobin 14.8 g/dL (12.0-16.0); Lymphocytes Absolute Auto 1500 /uL (1100-4500); Lymphocytes Percent Auto 17.5 % (25-40); Mean Corpuscular HGB Conc 33.4 % (30-36); Mean Corpuscular Hemoglobin 28.8 PG (26-34); Mean Corpuscular Volume 86.2 fL (80-100); Monocytes Absolute Auto 200 /uL (0-900); Monocytes Percent Auto 2.8 % (3-14); Neutrophils Absolute Auto 6700 /uL (1500-7000); Neutrophils Percent Auto 78.5 % (50-75); Platelet Count 266 X10^3/uL (150-400); Red Blood Cell Count 5.15 X10^6/uL (4.0-5.2); White Blood Cell Count 8.5 X10^3/uL (4.5-11.0)
[2018-10-06] MEDS: KETOROLAC 60 MG/2 ML VIAL 30 MG IV (07:44)
--- NOTE | 2018-10-06 07:45 | ED.ABDPAIN ---
HPI - Abdominal Pain General Chief Complaint: Abdominal Pain Stated Complaint: Feels like stomach is going to explode Time Seen by Provider: 10/06/18 07:28 Source: patient Mode of arrival: ambulatory Limitations: no limitations History of Present Illness HPI narrative: Patient is a 33-year-old female who presents with sudden onset of right upper quadrant pain. She said that she actually had some of this a couple days ago but lasted for 2 hours and went away. This morning it is not letting go and is quite painful. She is nauseous as well. She has not had any fever. MD complaint: abdominal pain Onset (ago): hour(s) Pain Consistency: constant Location: RUQ Severity: severe Severity scale (1-10): 10 Quality: stabbing Radiation: RUQ Migration to: no migration Relieving factors: nothing Exacerbating factors: nothing Related Data Home Medications Medication Instructions Recorded Confirmed 1 tab PO DAILY 11/16/17 10/06/18 vitamin,calcium,txrwnjdf-hkeo-eumkn acid tablet Pepcid AC 1 tab PO PRN PRN 10/06/18 10/06/18 calcium carbonate [Tums] 500 mg PO PRN PRN 10/06/18 10/06/18 Allergies Allergy/AdvReac Type Severity Reaction Status Date / Time ondansetron AdvReac Headache Verified 10/06/18 07:45 Review of Systems Review of Systems ROS Unobtainable: All systems reviewed & are unremarkable except as noted in HPI and below Constitutional Denies chills, Denies fever(s), Denies lethargy and Denies weakness Eyes Denies change in vision, Denies eye discharge, Denies irritation and Denies loss of vision ENT Ears, Nose, Mouth, and Throat: Denies change in voice, Denies neck pain and Denies sore throat Cardiovascular Denies chest pain, Denies irregular heart rhythm, Denies lightheadedness, Denies palpitations, Denies dyspnea, Denies dyspnea on exertion and Denies orthopnea Respiratory Denies cough, Denies dyspnea, Denies dyspnea on exertion and Denies wheezing Gastrointestinal Gastrointestinal: Reports as per HPI, Reports abdominal pain, Reports nausea and Reports vomiting Genitourinary Denies hematuria, Denies flank pain, Denies urinary incontinence and Denies urinary urgency Musculoskeletal Denies neck pain Integumentary/Breasts Denies pruritus, Denies erythema, Denies rash and Denies wounds Neurologic Denies loss of vision and Denies weakness Endocrine Denies palpitations Allergic/Immunologic Denies wheezing [facility] Medical History Spontaneous vaginal delivery (Resolved) Abnormal Pap smear of cervix (Chronic 2007) Asthma (Chronic 2009) Chicken pox (Chronic 1991) HPV (human papilloma virus) infection (Chronic 2006) Hayfever (Chronic 2009) Irregular periods/menstrual cycles (Chronic 2003) PCOS (polycystic ovarian syndrome) (Chronic 2009) Hyperemesis gravidarum (Resolved) Surgical History No history of previous surgery (Resolved 11/2016) Family History Mother Age: 54 Ovarian cyst Sister Age: 30 MS (multiple sclerosis) Brother No problems noted. Grandfather No problems noted. Grandmother No problems noted. Sister No problems noted. Daughter No problems noted. Daughter No problems noted. Social History marital status: number of children: 2 household members: family lives independently: Yes caregiver/support person: No housing: house occupational status: employed Smoking Status: Never smoker second hand exposure: No alcohol intake: current (not while ) substance use type: does not use Family History Mother Age: 54 Ovarian cyst Sister Age: 30 MS (multiple sclerosis) Brother No problems noted. Grandfather No problems noted. Grandmother No problems noted. Sister No problems noted. Daughter No problems noted. Daughter No problems noted. Exam Initial Vital Signs Initial Vital Signs: Vital Signs Temperature 98.5 F 10/06/18 07:34 Pulse Rate 106 H 10/06/18 07:34 Respiratory Rate 22 10/06/18 07:34 Blood Pressure 144/91 H 10/06/18 07:34 Pulse Oximetry 100 10/06/18 07:34 GENERAL:Tearful in pain HEENT: Head atraumatic,EOMI, pupils reactive, face symmetric, CARDIOVASCULAR: Regular rate and rhythm without murmurs, rubs or gallops. RESPIRATORY: Breath sounds equal bilaterally, no wheezes rales or rhonchi. ABDOMEN: Soft, tender right upper quadrant EXTREMITIES: Normal range of motion, no clubbing or edema. Neurovascularly intact NEUROLOGICAL: Alert and oriented x4.Normal gait and speech. Cranial nerves II through XII grossly intact. SKIN: Warm, dry, no laceration, no petechiae, no rashes or lesions. Course Orders Ordered: ED Orders 10/06/18 07:30 Complete Blood Count AUTO DIFF Stat Comprehensive Metabolic Panel Stat Lipase Stat 10/06/18 07:36 US abdomen limited Stat 10/06/18 11:05 MRSA PCR Stat 10/06/18 11:23 Test Urine Urgent Acetaminophen (Tylenol) 650 mg PO Q6HR PRN PRN Reason: As Needed for Fever/Mild Pain Albuterol (Ventolin) 2.5 mg INH QID PRN PRN Reason: shortness of breath or wheezing Lactated Ringer's (Lactated Ringers) 1,000 mls @ 100 mls/hr IV CONT ELOY Last Admin: 10/06/18 11:09 Dose: 100 mls/hr Morphine Sulfate (Morphine) 2 mg IV Q2HR PRN PRN Reason: Pain, Moderate (4-6) Last Admin: 10/06/18 11:05 Dose: 2 mg Ranitidine HCl (Zantac) 150 mg PO DAILY ELOY Discontinued Medications Hydromorphone HCl (Dilaudid) 0.5 mg IV NOW ONE Stop: 10/06/18 09:07 Last Admin: 10/06/18 09:21 Dose: 0.5 mg Sodium Chloride (Normal Saline 0.9%) 1,000 mls @ 1,000 mls/hr IV CONT ELOY Last Infusion: 10/06/18 09:15 Dose: 0 mls/hr Admin: 10/06/18 07:43 Dose: 1,000 mls/hr Lactated Ringer's (Lactated Ringers) 1,000 mls @ 100 mls/hr IV CONT ELOY Last Admin: 10/06/18 09:20 Dose: 100 mls/hr Cefazolin Sodium/Dextrose (Ancef) 2 gm in 100 mls @ 200 mls/hr IV INTRA-OP ONE Stop: 10/06/18 11:18 Ketorolac Tromethamine (Toradol) 30 mg IV NOW ONE Stop: 10/06/18 07:36 Last Admin: 10/06/18 07:44 Dose: 30 mg Metoclopramide HCl (Reglan) 5 mg IV NOW ONE Stop: 10/06/18 07:58 Last Admin: 10/06/18 09:15 Dose: Not Given Morphine Sulfate (Morphine) 4 mg IV NOW ONE Stop: 10/06/18 07:57 Last Admin: 10/06/18 07:59 Dose: 4 mg Ondansetron HCl (Zofran) 4 mg IV NOW ONE Stop: 10/06/18 07:36 Last Admin: 10/06/18 07:53 Dose: Not Given Consultations Consultation #1: Dr. Rubalcava surgery on-call updated patient's symptoms test results and will be in to see patient. Time: 08:46 Vital Signs - 8 hr 10/06/18 07:34 10/06/18 10:49 Temperature 98.5 F 98.6 F Pulse Rate 106 H 64 Respiratory Rate 22 16 Blood Pressure 144/91 H 136/71 Pulse Oximetry 100 99 MDM - Abdominal Pain Lab Data Attestation: I reviewed the patient's lab results. Result diagrams: 10/06/18 07:30 10/06/18 07:30 Lab Results 10/06/18 10/06/18 Range/Units 07:30 07:30 WBC 8.5 (4.5-11.0) X10^3/uL RBC 5.15 (4.0-5.2) X10^6/uL Hgb 14.8 (12.0-16.0) g/dL Hct 44.4 (36-46) % MCV 86.2 (80-100) fL MCH 28.8 (26-34) PG MCHC 33.4 (30-36) % RDW 13.0 (11.6-14.8) % Plt Count 266 (150-400) X10^3/uL Neut % (Auto) 78.5 H (50-75) % Lymph % (Auto) 17.5 L (25-40) % Wake % (Auto) 2.8 L (3-14) % Eos % (Auto) 0.8 L (2-4) % Baso % (Auto) 0.4 (0-2) % Neut # (Auto) 6700 (5192-1599) /uL Lymph # (Auto) 1500 (0354-3779) /uL Wake # (Auto) 200 (0-900) /uL Eos # (Auto) 100 (0-450) /uL Baso # (Auto) 0 (0-100) /uL Sodium 141 (137-145) mmol/L Potassium 3.8 (3.4-5.1) mmol/L Chloride 105 (98-107) mmol/L Carbon Dioxide 23 (22-32) mmol/L BUN 22 H (7-17) mg/dL Creatinine 0.80 (0.52-1.04) mg/dL Estimated GFR > 60.0 (>60) mL/min BUN/Creatinine Ratio 27.5 H (6-22) Glucose 128 H (70-100) mg/dL Calcium 9.8 (8.4-10.2) mg/dL Total Bilirubin 0.7 (0.2-1.3) mg/dL AST 60 H (14-36) IU/L ALT 161 H (9-52) IU/L Alkaline Phosphatase 77 (38-126) U/L Total Protein 8.1 (6.3-8.2) g/dL Albumin 4.7 (3.5-5.0) g/dL Globulin 3.4 (1.7-4.1) g/dL Albumin/Globulin Ratio 1.4 (1.0-2.8) Lipase 130 (23-300) U/L Point of care testing: Point of Care Testing Glucose POC 100 Imaging Data US - abdomen: Radiologist's impression: PROCEDURE: US ABDOMEN LIMITED INDICATIONS: RIGHT UPPER QUADRANT PAIN TECHNIQUE: Real-time scanning was performed of the abdominal and retroperitoneal organs, with image documentation. COMPARISON: None. FINDINGS: Liver: Liver is relatively poorly seen due to body habitus, quality of visualization would be improved by CT scanning. Gallbladder: There is a 2.1 cm stone lodged within the gallbladder neck but the gallbladder wall is not abnormally thickened. There is tenderness during sonographic palpation over the gallbladder. Biliary ducts: Intrahepatic bile ducts are non-dilated. Extrahepatic bile duct caliber measures 5.4 mm. Normal is 6-7 mm or less in diameter, or 10 mm or less post-cholecystectomy. Pancreas: Not seen due to bowel gas and body habitus. Miscellaneous: No free abdominal fluid. IMPRESSION: Quality of visualization is significantly limited by bowel gas and body habitus. A 2.1 cm calculus is found lodged within the gallbladder neck, and there is tenderness associated with this finding but currently the gallbladder wall is not abnormally thickened and no adjacent biliary distention is found. Acute cholecystitis, however, is suspected in this clinical circumstance. Dictated by: Zachery Acevedo M.D. on 10/06/2018 at 8:49 MDM Narrative Medical decision making narrative: Dr. Rubalcava, surgery in ED to see and evaluate patient. Discharge Plan Departure Patient Disposition: Admitted as Observation Clinical Impression: Cholelithiasis with acute cholecystitis Qualifiers: Biliary obstruction: without biliary obstruction Qualified Code(s): K80.00 - Calculus of gallbladder with acute cholecystitis without obstruction Discharge Date/Time: 10/06/18 10:47 Interventions: ED Discharge Assessment Last Done: 10/06/18 10:37 Admit Date/Time: 10/06/18 09:06 Admit Provider: Romeo Rubalcava
[2018-10-06 07:53] LABS: Alanine Aminotransferase 161 IU/L (9-52); Albumin 4.7 g/dL (3.5-5.0); Albumin Globulin Ratio 1.4 (1.0-2.8); Alkaline Phosphatase 77 U/L (38-126); Aspartate Aminotransferase 60 IU/L (14-36); BUN Creatinine Ratio 27.5 (6-22); Bilirubin Total 0.7 mg/dL (0.2-1.3); Blood Urea Nitrogen 22 mg/dL (7-17); Calcium 9.8 mg/dL (8.4-10.2); Carbon Dioxide 23 mmol/L (22-32); Chloride 105 mmol/L (98-107); Estimated Glomerular Filt Rate > 60.0 mL/min (>60); Globulin 3.4 g/dL (1.7-4.1); Glucose 128 mg/dL (70-100); HEMOLYSIS < 15 (0-50); Lipase 130 U/L (23-300); Potassium 3.8 mmol/L (3.4-5.1); Sodium 141 mmol/L (137-145); Total Protein 8.1 g/dL (6.3-8.2)
[2018-10-06] MEDS: MORPHINE 4 MG/ML INJ IV (07:59)
[2018-10-06] MEDS: LACTATED RINGERS 1,000 ML 100 ML IV ×5 (09:20→16:22)
[2018-10-06] MEDS: HYDROMORPHONE 1 MG INJ 0.5 MG IV (09:21)
--- NOTE | 2018-10-06 09:52 | PM.HP.1 ---
History of Present Illness Chief complaint: Feels like stomach is going to explode Narrative: Ms. Infante is a 33-year-old female with a history of biliary colic who presents with acute constant right upper quadrant pain for for 12 hours. She had previously noted some vague right upper quadrant pain following meals for the past 2 weeks that was intermittent and resolved spontaneously. Tonight she presents with acute onset of sharp right upper quadrant pain that is unrelieved with time and pain medication. She has associated nausea and emesis. In the emergency room she underwent a workup that included laboratory studies which demonstrate normal bilirubin and mild transaminitis. An ultrasound that I have reviewed demonstrates a 2 cm stone stuck in the neck of the gallbladder. Patient History Medical History Spontaneous vaginal delivery (Resolved) Abnormal Pap smear of cervix (Chronic 2007) Asthma (Chronic 2009) Chicken pox (Chronic 1991) HPV (human papilloma virus) infection (Chronic 2006) Hayfever (Chronic 2009) Irregular periods/menstrual cycles (Chronic 2003) PCOS (polycystic ovarian syndrome) (Chronic 2009) Hyperemesis gravidarum (Resolved) Surgical History No history of previous surgery (Resolved 11/2016) Family History Mother Age: 54 Ovarian cyst Sister Age: 30 MS (multiple sclerosis) Brother No problems noted. Grandfather No problems noted. Grandmother No problems noted. Sister No problems noted. Daughter No problems noted. Daughter No problems noted. Social History marital status: number of children: 2 household members: family lives independently: Yes caregiver/support person: No housing: house occupational status: employed Smoking Status: Never smoker second hand exposure: No alcohol intake: current (not while ) substance use type: does not use Family & Social History Family History Mother Age: 54 Ovarian cyst Sister Age: 30 MS (multiple sclerosis) Brother No problems noted. Grandfather No problems noted. Grandmother No problems noted. Sister No problems noted. Daughter No problems noted. Daughter No problems noted. Social History: household members family lives independently Yes caregiver/support person No Safety & Behavioral: Feels Safe in Current Yes Environment Been Physically Hurt or No Threatened By a Person Tobacco & Substance use: Smoking Status Never smoker alcohol intake current Substance Use Type does not use Meds Home Medications Medication Instructions Recorded Confirmed Type 1 tab PO DAILY 11/16/17 10/06/18 History vitamin,calcium,iwngphkc-lsqj-cuxzz acid tablet Pepcid AC 1 tab PO PRN PRN 10/06/18 10/06/18 History calcium carbonate [Tums] 500 mg PO PRN PRN 10/06/18 10/06/18 History Allergies Allergy/AdvReac Type Severity Reaction Status Date / Time ondansetron AdvReac Headache Verified 10/06/18 07:45 Review of Systems Review of Systems General no fever chills night sweats Skin no color change itching or lesions Head and neck no headache neck masses or swollen glands Respiratory no cough shortness of breath or wheezing Heart no chest pain no high blood pressure or palpitations Gastrointestinal no changes in bowel habits constipation diarrhea. Endorses nausea and emesis Genitourinary no dysuria or hematuria. Musculoskeletal no joint pain or muscle aches Neurologic no seizures weakness Psychiatric no anxiety or depression Endocrine no diabetes or thyroid problems Hematology no easy bruising or prolonged bleeding or spontaneous bleeding Exam Vital Signs (past 8 hours): - 10/06/18 07:34 Temperature 98.5 F Pulse Rate 106 H Respiratory Rate 22 Blood Pressure 144/91 H Pulse Oximetry 100 Oxygen Delivery Method Room Air Narrative Exam Narrative: GENERAL OBESE ADULT FEMALE NO ACUTE DISTRESS HEENT NO SCLERAL ICTERUS, MOIST MUCOUS MEMBRANES NECK SUPPLE NO LYMPHADENOPATHY CHEST CLEAR TO AUSCULTATION BILATERALLY NO WHEEZES CARDIAC REGULAR RATE AND RHYTHM ABDOMEN POSITIVE YANEZ'S SIGN. REMAINDER OF ABDOMEN SOFT NONTENDER NONDISTENDED EXTREMITIES WARM WELL PERFUSED WITHOUT EDEMA NEUROLOGICAL ALERT AND ORIENTED X3 Objective Labs Result Diagrams: 10/06/18 07:30 10/06/18 07:30 Labs: Laboratory Results - last 24 hr 10/06/18 10/06/18 07:30 07:30 WBC 8.5 RBC 5.15 Hgb 14.8 Hct 44.4 MCV 86.2 MCH 28.8 MCHC 33.4 RDW 13.0 Plt Count 266 Neut % (Auto) 78.5 H Lymph % (Auto) 17.5 L Frederick % (Auto) 2.8 L Eos % (Auto) 0.8 L Baso % (Auto) 0.4 Neut # (Auto) 6700 Lymph # (Auto) 1500 Frederick # (Auto) 200 Eos # (Auto) 100 Baso # (Auto) 0 Sodium 141 Potassium 3.8 Chloride 105 Carbon Dioxide 23 BUN 22 H Creatinine 0.80 Estimated GFR > 60.0 BUN/Creatinine Ratio 27.5 H Glucose 128 H Calcium 9.8 Total Bilirubin 0.7 AST 60 H ALT 161 H Alkaline Phosphatase 77 Total Protein 8.1 Albumin 4.7 Globulin 3.4 Albumin/Globulin Ratio 1.4 Lipase 130 Assessment & Plan (1) Cholelithiasis with acute cholecystitis: Qualifiers: Biliary obstruction: without biliary obstruction Qualified Code(s): K80.00 - Calculus of gallbladder with acute cholecystitis without obstruction Current visit: Yes Status: Acute Assessment & Plan narrative: 33 female with acute cholecystitis <24hrs. History of biliary colic now with acute onset of contant RUQ pain + Yanez's sign. Ultrasound reveiwed demonstrates a 2 cm stone impacted in neck of gallbladder. LFTs normal. -Admit to observation -NPO -Pain control with morhpine PRN -Booked for Laparoscopic possible open cholecystectomy today -Discussed risk of operation with patient including bleeding infection damage to surrounding structures with need for further operation -
[2018-10-06] MEDS: MORPHINE 2 MG/ML INJ IV ×3 (11:05→20:19)
--- NOTE | 2018-10-06 11:17 | PM.PREOP ---
Pre-operative Note Interval Note History & Physical reviewed/Exam performed by Physician: Yes Changes to H&P: No
--- NOTE | 2018-10-06 11:41 | PC.ADMIT ---
[email or web address] Admission Note: The patient,Brittney Infante,33 y/o, was given written information regarding hospital policies, unit procedures and contact persons. Patient's smoking status: Never smoker. Vital Signs - 8 hr 10/06/18 07:34 10/06/18 10:49 Temperature 98.5 F 98.6 F Pulse Rate 106 H 64 Respiratory Rate 22 16 Blood Pressure 144/91 H 136/71 Pulse Oximetry 100 99 Rec'd pt from ED to rm 106 at 1045 via w/c. Pt is AO x3 with and baby at bedside. Oriented pt to room, routine, and plan of care. Reinforced NPO status. Pt ambulated independently to with steady gait and no assistive device to void. C/o increase in pain to RUQ radiating to back which she describes as deep, aching, tight, throbbing, and stabbing and rates 7/10. Administered 2 mg IVP morphine which decreased pain to 4-5/10 which pt states is tolerable for her. Educated to use of call light, SCDs, and IS. Pt verbalizes understanding and provides return demo on use of IS.
--- NOTE | 2018-10-06 12:47 | PC.NURSE ---
Pt taken to pre op about 1240 with RN/ASSURANCE ASSISTANT. Breast pump and supplies sent with pt.
[2018-10-06] MEDS: FAMOTIDINE 20 MG/50 ML PIGGYBACK 200 MG IV (13:07)
[2018-10-06 13:16] LABS: Pregnancy Test Urine Negative (Negative)
[2018-10-06] MEDS: CEFAZOLIN 2 GM/100 ML FROZ.PIGGY IV (13:30)
[2018-10-06] MEDS: BUPIVACAINE 0.5% (PF) VIAL 30 ML INJ (14:06)
--- NOTE | 2018-10-06 15:40 | PM.OP.1 ---
Operative Date/Time/Diagnoses Date of procedure: 10/06/18 Time of procedure: 15:41 Pre-op diagnosis: Acute cholecystitis Post-op diagnosis: same Procedure & Clinicians Procedure: Laparoscopic cholecystectomy Same procedure as scheduled: Yes Indications: Acute cholecystitis Surgeon: Romeo Rubalcava Telephone Lineworker: Andrea Patel Anesthesia Type: General Operative Notes Findings: Acute cholecystitis, 2 cm gallstone Specimen(s): other (gallbladder) Estimated Blood Loss (mL): 10 Blood products transfused: none Procedure in detail: Operation laparoscopic cholecystectomy Preop diagnosis acute cholecystitis Postoperative diagnosis same Brief clinical note the patient is a 33-year-old female who presented to the emergency room with acute onset of right upper quadrant pain with positive Yanez sign and an ultrasound demonstrating as 2 cm gallstone lodged in the neck of the gallbladder. Following a discussion of the risks benefits alternatives to surgery she elected to proceed with a laparoscopic possible open cholecystectomy Procedure patient was brought to the operating room placed supine on the table. Bilateral lower extremity compression devices were applied. General anesthesia was induced and she was intubated with an endotracheal tube. A preoperative time-out was performed to ensure the correct patient procedure necessary equipment within the operating room. She received 2 g of Ancef prior to skin incision. We began by injecting Marcaine local anesthetic periumbilical. A infraumbilical incision was made and the fascia was divided and the abdomen was entered atraumatically. A 10 mm trocar was then placed into the abdomen and pneumoperitoneum was established. We then placed our working ports three 5 mm working ports the 1st high in the epigastrium and 2 in the right upper quadrant. The gallbladder was acutely inflamed and very distended so using a spinal needle the gallbladder was aspirated. The gallbladder was then grasped superiorly over the liver as well as retracted laterally. We began by skeletonizing the triangle of Calot. The cystic duct was identified 1st and followed until it entered the gallbladder definitely. It was then skeletonized in its entirety and the then clipped twice proximally and once distally. It was then sharply divided. Next the node of calot was exicsed with electrocautery as it sat directly over the cystic artery. The cystic artery was then skeltonized clipped and divided in the same fashion. The gallbladder was then removed from the liver bed using electrocautery. The gallbladder and a large 2 cm gallstone were removed from the abdomen using the Endo-Catch bag. The abdomen was thoroughly irrigated and we inspected the clips which were in appropriate position. The gallbladder fossa was hemostatic. Ports were then removed under direct visualization. The umbilical fascial incision was closed with 2-0 Vicryl sutures and then the skin was closed with 4 0 Vicryl followed by the application of Dermabond and Steri-Strips. Patient emerged from general anesthesia and was extubated and transferred to the postoperative care unit in stable condition. Complications: none Condition: stable Disposition: Acute Care Plan for aftercare: observation
--- NOTE | 2018-10-06 16:46 | PC.NURSE ---
1611- Patient arrived to room 106 from PACU. Patient is awake and conversive. 02 on at 1liter via cannula. BP see vitals. SCD on per order. Patient C/O 8/10 pain medicated per order. at bedside will monitor.
[2018-10-06] MEDS: ACETAMINOPHEN 325 MG TABLET 650 MG PO (16:56)
[2018-10-06] MEDS: OXYCODONE IR 5 MG TABLET 10 MG PO ×2 (17:47→22:02)
--- NOTE | 2018-10-06 22:31 | PM.OP.1 ---
Operative Date/Time/Diagnoses Date of procedure: 10/06/18 Time of procedure: 22:31 Pre-op diagnosis: acute appendicitis Post-op diagnosis: same Procedure & Clinicians Procedure: laparoscopic appendectomy Same procedure as scheduled: Yes Indications: acute appendicitis by clinically and confirmed with CT A/P Surgeon: Romeo Rubalcava Click Yes if Unassisted: Yes Anesthesia Type: General Operative Notes Findings: acute non ruptured appendicitis Specimen(s): other (appendix) Estimated Blood Loss (mL): 5 Blood products transfused: none Procedure in detail: Brief clinical note this os strand is a 33-year-old female who presented with acute appendicitis based on history clinical exam and confirmed with CT abdomen pelvis. I reviewed the CT which demonstrates acute appendicitis without abscess. Following a discussion of the benefits alternatives and risks to surgery including bleeding infection damage to surrounding organs need for conversion to an open operation patient elected to proceed. Procedure patient was brought to the operating room placed supine on the table. Bilateral lower extremity compression devices were applied. General anesthesia was induced and she was intubated with an endotracheal tube. A time-out was performed to ensure the correct patient procedure and necessary equipment within the operating room. Patient received Zosyn prior to skin incision in the operating room. A infraumbilical incision was made in the skin and subcutaneous tissues were divided. The umbilical stalk was grasped elevated and then the abdomen was entered atraumatically. A 10 mm trocar was then placed in the abdomen pneumoperitoneum was established. Lap scope was inserted in the abdomen and inspection was made which demonstrated no injury upon entry. We then placed our working ports included 5 mm main working port in the suprapubic area as well as 1 in the left lower quadrant. The patient was then positioned head down right side up in the small bowel swept out of the pelvis. The right colon was identified and at the base of the cecum the appendix was noted. It was significantly inflamed but was not obviously perforated. The appendix was grasped and it was gently teased from the adjacent terminal ileum using careful blunt dissection. The appendix was then retracted and a window within the mesentery was made. The mesoappendix was divided using the Endo-MURALI stapler with a vascular load. Next the appendix was taken at its base and divided using the Endo stapler using a blue bowel load. This point the specimen was retrieved from the abdomen using the Endo-Catch bag. Next the abdomen was irrigated with sterile saline and suction. We inspected the staple lines and they were found to be hemostatic and intact. The trocars were then removed from the abdomen under direct visualization. The umbilical fascial incision was closed with 0 Vicryl suture. The skin of the incisions was closed with Monocryl followed by application of Dermabond. The patient emerged from general anesthesia was extubated and transferred to the postoperative care unit in stable condition. Complications: none Condition: stable Disposition: observation Plan for aftercare: observation
[2018-10-07] MEDS: MORPHINE 2 MG/ML INJ IV ×2 (00:05→08:05)
--- NOTE | 2018-10-07 00:46 | PC.NURSE ---
Addendum entered by Gail King R.N. 10/07/18 05:08: Fluids stopped on 3-11 prior to my arrival. Original Note: Pt states she must have something for pain every 2 hours as the pain is 8/10 and only goes down to 6/10 at most.
[2018-10-07] MEDS: OXYCODONE IR 5 MG TABLET 10 MG PO ×2 (02:15→14:27)
[2018-10-07 05:55] VITALS: BP 119/65; PULSE 86; RESP 18; TEMP 36.9; O2SAT 97
[2018-10-07 07:45] VITALS: BP 103/56; PULSE 60; RESP 16; TEMP 37.1; O2SAT 98
[2018-10-07] MEDS: ACETAMINOPHEN 325 MG TABLET 650 MG PO (08:05)
[2018-10-07] MEDS: KETOROLAC 30 MG/ML VIAL IV (08:55)
--- NOTE | 2018-10-07 09:50 | PM.DS.1 ---
History of Present Illness Chief complaint: Feels like stomach is going to explode Narrative: Ms. Infante is a 33-year-old female with a history of biliary colic who presents with acute constant right upper quadrant pain for for 12 hours. She had previously noted some vague right upper quadrant pain following meals for the past 2 weeks that was intermittent and resolved spontaneously. Tonight she presents with acute onset of sharp right upper quadrant pain that is unrelieved with time and pain medication. She has associated nausea and emesis. In the emergency room she underwent a workup that included laboratory studies which demonstrate normal bilirubin and mild transaminitis. An ultrasound that I have reviewed demonstrates a 2 cm stone stuck in the neck of the gallbladder. Discharge Providers Date of admission: 10/06/18 09:06 Discharge Date: 10/07/18 Primary care physician: Kathryn Leyva MD Discharge provider: Romeo Rubalcava MD Summary Discharge Diagnosis: acute cholecystitis Hospital Course: The patient is a 33-year-old female with a history of biliary colic who presented with clinical findings of acute cholecystitis. She had an ultrasound done that demonstrated 2 cm stone lodged in the neck gallbladder. She underwent a laparoscopic cholecystectomy which demonstrated acute cholecystitis. Her postoperative course was unremarkable. On postoperative day 1 she is tolerating a regular diet without nausea or vomiting. Her pain is well controlled with p.o. medication. She is ambulatory. Exam Vital Signs (past 8 hours): - 10/07/18 05:55 10/07/18 07:45 Temperature 98.4 F 98.7 F Pulse Rate 86 60 Respiratory Rate 18 16 Blood Pressure 119/65 103/56 L Pulse Oximetry 97 98 Oxygen Delivery Method Nasal Cannula Oxygen Flow Rate 0 Narrative Exam Narrative: General adult female alert oriented no acute distress Chest is clear to auscultation bilaterally Cardiac regular rate and rhythm. Abdomen appropriately tender to palpation Incisions clean dry and intact. Objective Labs Result Diagrams: 10/06/18 07:30 10/06/18 07:30 Labs: Laboratory Results - last 24 hr 10/06/18 10/06/18 11:05 12:30 Urine Test Negative Nasal Screen MRSA (PCR) Negative for mrsa Discharge Plan Discharge Plan Patient Disposition: Home Discharge comment: Status post laparoscopic cholecystectomy for acute cholecystitis Discharge Med Rec/Prescriptions Prescriptions: New acetaminophen 325 mg Tablet 650 mg PO Q6HR PRN (Reason: As Needed For Fever/Mild Pain) Qty: 30 RF: 0 albuterol sulfate 2.5 mg /3 mL (0.083 %) Solution For Nebulization 2.5 mg INH QID PRN (Reason: shortness of breath or wheezing) Qty: 1 RF: 0 oxycodone 5 mg Tablet 5 mg PO Q4HR PRN (Reason: Pain, Moderate (4-6)) Qty: 40 RF: 0 Continued prenat.vits,shilpa,efm-ltzt-vymzw tablet 1 tab PO DAILY RF: 0 calcium carbonate [Tums] 200 mg calcium (500 mg) Tablet,Chewable 500 mg PO PRN PRN (Reason: Indigestion) RF: 0 Pepcid AC 1 tab PO PRN PRN (Reason: Acid Reflux) RF: 0 Follow up/Referrals: Romeo Rubalcava MD [Physician] - 10/20/18 9:45 am (0945 AM check-in 1000 AM appointment time) Kathryn Leyva MD [Primary Care Provider] - Provider Discharge Instructions Diet: Regular Activity: No lifting >20 lbs until 6 weeks. No driving until no longer taking narcotics. Skin/Wound/Dressing Care Skin care: Ok to shower do not soak incisions until 1 week. Report to your healthcare provider any signs of infection, such as:: chills, fever, increased pain, unusual drainage and unusual redness Visit Report/Discharge Packet Instructions: DI for Cholecystectomy, DI for Laparoscopy, Oxycodone Visit Report Forms: Stroke Signs & Symptoms Discharge Data Primary Care Provider: Kathryn Leyva Attending Provider: Romeo Rubalcava Admit Date/Time: 10/06/18 09:06 Discharges patient from system. Discharge Date/Time: 10/07/18 15:00
--- NOTE | 2018-10-07 10:23 | P.PN_ITS ---
Subjective Date Patient Seen: 10/07/18 Time Patient Seen: 09:18 Interval history: Status post laparoscopic cholecystectomy for acute cholecystitis postoperative day 1. Doing well. Tolerating regular diet without nausea or vomiting. Abodminal pain moderate and left shoulder pain. No acute overnight events. Exam Vital Signs (past 8 hours): - 10/07/18 05:55 10/07/18 07:45 Temperature 98.4 F 98.7 F Pulse Rate 86 60 Respiratory Rate 18 16 Blood Pressure 119/65 103/56 L Pulse Oximetry 97 98 Oxygen Delivery Method Nasal Cannula Oxygen Flow Rate 0 Narrative Exam Narrative: General adult female alert oriented no acute distress Chest is clear to auscultation bilaterally Cardiac regular rate and rhythm. Abdomen appropriately tender to palpation Incisions clean dry and intact. Objective Labs Result Diagrams: 10/06/18 07:30 10/06/18 07:30 Labs: Laboratory Results - last 24 hr 10/06/18 10/06/18 11:05 12:30 Urine Test Negative Nasal Screen MRSA (PCR) Negative for mrsa Assessment & Plan Post-op (1) Cholelithiasis with acute cholecystitis: Assessment and Plan narrative: Doing well status post laparoscopic cholecystectomy for acute cholecystitis. Tolerating regular diet. Pain appro priate and likely the left shoulder pain is secondary to insufflation. Ambulation Prophylactic Lovenox for VTE prophylaxis. Regular diet Discharge later today when pain is controlled adequately with p.o. medication. Postoperative Procedures Operation Date: 10/06/18 13:00 Actual Procedures Side Surgeon p Laparoscopic Cholecystectomy Romeo Rubalcava MD Time Spent With Patient 15-24 minutes
[2018-10-07] MEDS: OXYCODONE IR 5 MG TABLET PO (10:51)
[2018-10-07 11:20] VITALS: BP 108/54; PULSE 67; RESP 18; TEMP 36.8; O2SAT 100
--- NOTE | 2018-10-07 15:09 | PC.NURSE ---
Pt dc'd home per MD order. Provided d/c packet, written/verbal education, rx, and f/u appt. Pt verbalizes understanding of all d/c teaching. Removed PIV with cath tip intact. Gathered all belongings and sent with pt. Pt declined w/c transport to POV. Ambulated with SBA to POV in no acute distress.
--- NOTE | 2018-10-07 16:14 | CM.DPNOTE ---
DC Note: Reviewed chart, pt discussed in multidisciplinary rounds, no barriers expected today to safe return home w/her family. Met w/pt briefly as she was recieving DC instructions from VILMA Dowling, no needs identified by pt and RN for this MAILING CLERK to address. P: DC back home, POD#1 from [facility], home w/family via pov. CLARKE Clark
== END 2018-10-07 15:00 | disposition home or self-care (01) ==
LOC: ED 07:28 → AC 09:07 → ICU 10:45
PROVIDERS: Admitting Provider Surgery; Emergency Provider Emergency Medicine; PCP Family Medicine; Visit Provider Surgery
PROC: 0FT44ZZ Resection of Gallbladder, Percutaneous Endoscopic Approach (ICD-10-PCS; CPT 47562; principal; 2018-10-06 13:00)
DX: K80.00 Calculus of gallbladder with acute cholecystitis without obstruction (principal); R10.11 Right upper quadrant pain; J45.909 Unspecified asthma, uncomplicated
CPT/HCPCS: 47562; 36591; 76705; 80053; 81025; 82962; 83690; 85025; 87797; 96374; 96375; 96376; 99220; 99283; 99284; G0378; J0690; J1100; J1170; J1885; J2250; J2270; J2405; J2704; J3010

== ENCOUNTER → 2019-10-26 09:25 | Outpatient (CLI) | payer BC, SELFPAY ==
[2019-10-26 10:02] LABS: Hemoglobin A1C% w Est Avg Glu 5.1 % (4.0-6.0)
[2019-10-26 10:25] LABS: Alanine Aminotransferase 47 IU/L (<35); Albumin Globulin Ratio 1.4 (1.0-2.8); Alkaline Phosphatase 60 U/L (38-126); Aspartate Aminotransferase 34 IU/L (14-36); BUN Creatinine Ratio 16.2 (6-22); Bilirubin Total 0.6 mg/dL (0.2-1.3); Blood Urea Nitrogen 11 mg/dL (7-17); Carbon Dioxide 25 mmol/L (22-32); Chloride 107 mmol/L (98-107); Cholesterol 193 mg/dL (140-199); Estimated Glomerular Filt Rate > 60.0 mL/min (>60); Globulin 2.9 g/dL (1.7-4.1); Glucose 96 mg/dL (70-100); HDL Cholesterol 51 mg/dL (40-60); HEMOLYSIS < 15 (0-50); LDL Cholesterol Calculated 127 mg/dL (<100); Potassium 4.6 mmol/L (3.4-5.1); Sodium 136 mmol/L (137-145); Total Protein 6.9 g/dL (6.3-8.2); Triglycerides 74 mg/dL (35-150)
[2019-10-26 10:43] LABS: Free T3, Triiodothyronine Free 3.68 pg/mL (2.77-5.27); Free T4, Direct Thyroxine 0.93 ng/dL (0.78-2.19)
== END ==
PROVIDERS: PCP Family Medicine; Referring Provider Family Medicine; Visit Provider Family Medicine
DX: E66.9 Obesity, unspecified (principal)
CPT/HCPCS: 36415; 80053; 80061; 83036; 84439; 84443; 84481

== ENCOUNTER → 2019-11-10 10:28 | Outpatient (CLI) | payer BC, SELFPAY ==
[2019-11-10 10:40] LABS: WBC Urine None Seen (0-5/HPF)
[2019-11-10 11:28] LABS: Appearance Urine UA CLEAR; Bilirubin Urine UA NEGATIVE (NEGATIVE); Color Urine UA YELLOW; Glucose Urine UA NEGATIVE (Negative); Ketones Urine UA NEGATIVE (NEGATIVE); Leukocyte Esterase Urine UA NEGATIVE (NEGATIVE); Nitrite Urine UA NEGATIVE (Negative); Occult Blood Urine UA TRACE-INTACT (Negative); Protein Urine UA NEGATIVE (Negative); Urobilinogen Urine UA 0.2 E.U./dL (0.2)
[2019-11-10 11:31] LABS: pH Urine UA 6.5 (4.5-8.0)
[2019-11-10 11:34] LABS: RBC Urine 0-1/HPF (0-5/HPF); Squamous Epithelial Cell Urine 0-1 /HPF (0-5/HPF)
[2019-11-10 11:35] LABS: Bacteria Urine Few (2-10); Culture Indicated Urine Specimen Cultured
== END ==
PROVIDERS: PCP Family Medicine; Referring Provider Family Medicine; Visit Provider Family Medicine
DX: N39.0 Urinary tract infection, site not specified (principal); R30.0 Dysuria; R35.0 Frequency of micturition; R35.8 Other polyuria; R39.15 Urgency of urination
CPT/HCPCS: 81001; 87086

== ENCOUNTER → 2019-11-16 09:35 | Outpatient (CLI) | payer BC, SELFPAY ==
--- NOTE | 2019-11-16 09:50 | DI.MG.S_ITS ---
Patient Name: PRITI WESTBROOK date: 1985 Sex: F Attending Physician: Autumn Indications: Date: 11/16/2019 09:54 At the request of: ALFREDO VILLAREAL Procedure: MM diagnostic mammo BI BILATERAL DIGITAL DIAGNOSTIC MAMMOGRAM 3D/2D: 11/16/2019 CLINICAL: Baseline exam. Right breast lump. No prior exams were available for comparison. The tissue of both breasts is heterogeneously dense. This may lower the sensitivity of mammography. No significant masses, calcifications, or other findings are seen in either breast. Specifically, no finding to correspond to the patient's right breast 12:00 palpable abnormality. IMPRESSION: INCOMPLETE: NEEDS ADDITIONAL IMAGING EVALUATION There is no abnormality seen in the right breast to correspond with the palpable abnormality and pain at 12 o'clock in the posterior depth, however, ultrasound is recommended. This was performed immediately following this exam. Mammograms are otherwise normal. This exam was interpreted at Station ID: [id number]. NOTE: For mammograms, a report in lay terms will be sent to the patient. Approximately 15% of breast malignancies will not be visualized mammographically. In the management of a palpable breast mass, a negative mammogram must not discourage biopsy of a clinically suspicious lesion. Electronically Signed By: Aracely martin/:11/16/2019 10:07:01 Continued Report - Page 2 of 2 Patient Name: PRITI WESTBROOK date: 1985 Sex: F Attending Physician: Autumn Indications: Date: 11/16/2019 09:54 At the request of: ALFREDO VILLAREAL Procedure: MM diagnostic mammo BI ACR BI-RADS Category 0: Incomplete [id number]
--- NOTE | 2019-11-16 10:54 | DI.US.S_ITS ---
Patient Name: PRITI WESTBROOK date: 1985 Sex: F Attending Physician: Autumn Indications: Date: 11/16/2019 11:00 At the request of: ALFREDO VILLAREAL Procedure: US breast RT limited LIMITED ULTRASOUND OF RIGHT BREAST: 11/16/2019 CLINICAL: Palpable lump right breast for 6 weeks. Comparison is made to exam dated: 11/16/2019 [facility]. Real-time ultrasound of the right breast 12-2 o'clock region was performed. Gutierrez scale images of the real-time examination were reviewed. No significant abnormalities were seen sonographically in the right breast. Specifically, no finding to correspond to the patient's palpable abnormality. IMPRESSION: NEGATIVE There is no sonographic correlate to the patient's palpable abnormality and no evidence of malignancy. Patient should return to her doctor if the area grows or has suspicious changes. Annual mammogram screening beginning at age 40 is recommended. Findings and recommendations were conveyed to the patient at time of exam. This exam was interpreted at Station ID: [id number]. Electronically Signed By: Aracely martin/:11/16/2019 11:09:00 letter sent: Normal Exam Ultrasound BI-RADS: 1 Negative
== END ==
PROVIDERS: PCP Family Medicine; Referring Provider Family Medicine; Visit Provider Family Medicine
DX: R92.8 Other abnormal and inconclusive findings on diagnostic imaging of breast (principal); N63.15 Unspecified lump in the right breast, overlapping quadrants
CPT/HCPCS: 76642; 77066; G0279

== ENCOUNTER → 2020-01-04 11:58 | Outpatient (CLI) | payer BC, SELFPAY ==
[2018-10-06 10:45] VITALS: BMI 32.5
--- NOTE | 2020-01-04 15:46 | DIET.PN ---
Dietary Progress Note Assessment: 34y F referred to nutrition for health surveillance related to PCOS. Pt not interested in taking metformin or any medications if possible. Dx c PCOS 2008 prior to getting c first child Irregular menstrual cycles from [age]yo, very active, couldn't get was eating more packaged foods, dessert, fast food etc Hyperemesis gravidum entire , wasn't though trying for 3y after, started eating more whole foods, paying attention got , HG again, healthy baby healthiest ever been (180#) 4 years break irregular periods healthy baby HE again, who is 18mo Most dinners are whole30 based, has 15 things cycle through regularly Right now feeling really stressed, nutrition is bad for ~3w. Usual Day: wakes 8:30am feels rested, her youngest sleeps through night water 9am breakfast: eggs (c avocado oil), fruit, sometimes toast c butter (organic whole wheat, white), sometimes avocado, tomato, onion chores Snack 11:15 fresh fruit, veggies c hummus and water, salami, pickles 1:30pm lunch: soups (whole30 based), leftovers, egg roll in a bowl naptime for kaylee and starts school for [employer], gets work out in tries to ride [employer] stationary bike c virtual instructor at least 10 minutes per day if not more (20 min workout rides 7 miles, 234cals burned) in addition does barre class for 30min five times per week right after biking 96-128 oz per day, 4- 32oz sandra jars 4pm: snack time for babies and for mom, fruit, veggies c hummus, salami dinner 7pm: whole30 limiting starches, potatoes, etc: egg roll in a bowl, burger bowl, taco casserole, steak and veggies, chicken thigh and veggies, grilled or steamed veggies. baths, bedtime reading generally does not snack in evening everyone is asleep by 9:30am, mom asleep 10:30pm has lost 80# on same journey and goes to crossfit 3x/w which is good but a little dismotivating for pt. HT: 5'7 WT: 222# highest weight 237#, lowest as adult 180#, felt good here BMI: 34.8 Labs: A1c 5.1 excellent, wondering about insulin levels Nutrition Diagnosis: abnormal weight gain r/t endocrine dysfunction aeb pt dx c PCOS in 2008 after difficulty conceiving, pt BMI 34.8 despite eating healthy diet and exercising daily, her has lost 80# in same time period c same routine. Interventions: 1. Educated pt on insulin resistance r/t PCOs. Reiterated importance of carb consistent diet to keep A1c in good control. Encouraged pt to continue following Whole30 meal planning. 2. Discussed several ways pt could increase insulin sensitivity including by experimenting c Intermittent Fasting (13h overnight or 16/8 plan 3x/w) and provided pt c Fasting Mimicking Diet food plan to do five consecutive days each month, no more often than that, to assist with weight regulation and insulin resistance without increasing cardiovascular risk. 3. Discussed role of exercise for increasing insulin sensitivity. Encouraged pt to move her body an hour a day for now focusing on fat burn heart rate zone and mixing up her routine for muscle confusion. 4. Would like insulin level tested as A1c WNL, yet pt having difficulty c weight loss. f/u in 4w to assess progress
== END ==
PROVIDERS: PCP Family Medicine; Referring Provider Family Medicine; Visit Provider Family Medicine
DX: E28.2 Polycystic ovarian syndrome (principal); E66.9 Obesity, unspecified; E34.9 Endocrine disorder, unspecified; Z68.34 Body mass index [BMI] 34.0-34.9, adult; Z71.3 Dietary counseling and surveillance
CPT/HCPCS: 97802

== ENCOUNTER → 2020-03-04 11:20 | Outpatient (CLI) | payer BC, SELFPAY ==
[2020-03-05 08:03] LABS: Insulin Level Total 16.2 uIU/mL (2.6-24.9)
== END ==
PROVIDERS: PCP Family Medicine; Referring Provider Family Medicine; Visit Provider Family Medicine
DX: E66.9 Obesity, unspecified (principal)
CPT/HCPCS: 36415; 83525

== ENCOUNTER → 2020-03-14 14:02 | Outpatient (CLI) | payer OTHER, BC, SELFPAY ==
--- NOTE | 2020-03-14 14:06 | DIET.PN ---
Dietary Progress Note 34y F attending nutrition f/u for help with dietary reccs for PCOS. Pt comes to appointment feeling frustrated as she has gained weight since our initial appointment. Pt tried a 5 day cycle of the Fasting Mimicking Diet but didn't like the food and didn't lose weight. Pt has gained 10# since we last met was able to lose 5# by stopping snacking and focusing on her water intake. Pt does endorse some holiday snacking but doesn't feel its enough to account for her recent weight gain. Pt generally follows Whole30 type eating plan. Pt had gall bladder removed 1.5y ago and notices when she eats high fat she has BM right away. Pt feels like eating nuts causes bloating- almonds and cashews. Current weigh 227# (+5# since prior visit 1mo ago) Pts serum insulin came back WNL 16.2 and A1c 5.1. Pt has hired a certified personal trainer for past 4w one in person and one virtual session per week focusing on high intensity, pt also stretches daily and does 4-5d/w of fat burn level heart rate exercise whether hiking or using peloton bike. Nutrition Diagnosis: abnormal weight gain r/t endocrine dysfunction aeb pt dx c PCOS in 2008 after difficulty conceiving, pt BMI 34.8 despite eating healthy diet and exercising daily, her has lost 80# in same time period c same routine. Interventions: 1. Discussed checking in with PCP Autumn regarding continued difficulty c managing weight despite working with dietitian and a personal vehicle advisor resulting in weight gain rather than weight loss. 2. Pt and RD discussed research showing macros of 40% protein, 30% fat, and 30% carbs as being beneficial to promote weight loss in women c PCOS instead of calorie restriction r/t increased satiety. Pt will download michelle and log a week or two of food to see ratios of her current diet. 3. Pt is resistant to metformin therapy to manage PCOS but may be amenable to berberine supplement, pt will discuss this with her care team to assess if it is appropriate. Pt will continue c current plan of dietary modifications and physical activity now that the holiday season is over. RD f/u in 1 mo to assess progress.
== END ==
PROVIDERS: PCP Family Medicine; Referring Provider Family Medicine; Visit Provider Family Medicine
DX: E28.2 Polycystic ovarian syndrome (principal); R63.5 Abnormal weight gain; Z71.3 Dietary counseling and surveillance
CPT/HCPCS: 97803

== ENCOUNTER → 2020-05-02 13:58 | Outpatient (CLI) | payer BC, SELFPAY ==
--- NOTE | 2020-05-02 14:24 | DIET.PN ---
Dietary Progress Note 34y F attending nutrition f/u for PCOS. Pt attends visit in great mood. She has found a system which works for her! Usual Day: B: 2 eggs on thin sliced toast L: mix of ground beef and ground turkey c quinoa, veggies and fruit Sn: fruit Dinner: similar to lunch Pt is working out 1hr per day cycling cardio and strength. Pt feels really proud of herself, is slowly losing weight (10# so far), has lost inches across her body, feels like she is sabotaging herself less, and is in a good groove. Pt ready to stop meeting c RD but will call if she gets derailed or has any further concerns or questions. Pt will add oolong, green, and spearmint tea to her routine for weight loss and hormone support.
== END ==
PROVIDERS: PCP Family Medicine; Referring Provider Family Medicine; Visit Provider Family Medicine
DX: E28.2 Polycystic ovarian syndrome (principal); Z71.3 Dietary counseling and surveillance
CPT/HCPCS: 97803

== ENCOUNTER → 2021-01-06 14:32 | Outpatient (CLI) | payer BC, SELFPAY ==
[2021-01-06 15:36] LABS: COVID19 -Nasal RAPID Negative (Negative)
== END ==
PROVIDERS: PCP Family Medicine; Visit Provider Obstetrics & Gynecology
DX: Z20.822 Contact with and (suspected) exposure to COVID-19 (principal); Z01.812 Encounter for preprocedural laboratory examination
CPT/HCPCS: 87635

== ENCOUNTER 2021-01-07 06:41 | Day surgery (SDC) | payer BC, SELFPAY ==
[2021-01-06 08:24] VITALS: BMI 31.9
[2021-01-07] VITALS (12 sets, daily range): BP systolic 105–131; BP diastolic 58–85; PULSE 73–114; RESP 11–18; TEMP 36.5–38.4; O2SAT 92–99; BMI 33.2
--- NOTE | 2021-01-07 | PATH_ITS ---
[facility] Accession Number: [id number] . 01 Material submitted: . uterus - UTERUS, BILATERAL FALLOPIAN TUBES . 02 Diagnosis: Uterus, Bilateral Fallopian Tubes, Hysterectomy and Bilateral Salpingectomy (Weight 171 grams): Cervix with patchy hyperkeratosis and parakeratosis, consistent with clinical impression of prolapse. Endocervix with no significant histomorphologic abnormality. Proliferative endometrium; negative for glandular hyperplasia, cytologic atypia, or malignancy. Myometrium with no significant histomorphologic abnormality. Uterine serosa with no significant histomorphologic abnormality. Right fallopian tube; negative for atypia or malignancy. Left fallopian tube; negative for atypia or malignancy. [facility] 01/09/2021 1105 Local . 02 Electronically signed: . Hannah Sparks MD, Pathologist NPI- [id number] . 01 Gross description: . Received in formalin labeled with the patient's name and uterus, bilateral fallopian tubes is a uterus with attached bilateral fallopian tubes weighing 171 grams. The uterus measures 4.9 cm anterior to posterior, 6.5 cm cornu to cornu, and 10.8 cm fundus to cervix. The serosa is smooth. The ectocervix has a surface diameter of 3.8 x 2.2 cm and a 0.7 cm slit-like os. The ectocervical mucosa is torres and smooth. The endometrial cavity measures 4.5 x 1.5 cm and is covered by torres-pink endometrium measuring 0.3 cm in thickness. No intramural or subserosal nodules are identified. The myometrium measures 1.9 cm in thickness. The attached right fallopian tube measures 5.0 cm in length x 0.5 cm in diameter, and the attached left fallopian tube measures 6.1 cm in length x 0.5 cm in diameter. Both tubes have a fimbriated end. [employer] Installer sections are submitted as follows: . A1: Anterior cervix. A2: Posterior cervix. A3: Anterior endomyometrium. A4: Posterior endomyometrium. A5: Right fallopian tube cross section and fimbriated end. A6: Left fallopian tube cross section and fimbriated end. (GAVIN:[id number]) . /[facility] 01/08/[address] [place] [address] . 02 Pathologist provided ICD-10: N81.10, N81.6, N81.4 . 02 CPT . [id number] Performed at: 01 [facility] [address] [address], [place], [place] [id number] MD Albert Neil MD Phone: [phone] Performed at: 02 [facility] [address] [place] [id number] MD Jackelyn العراقي MD Phone: [phone]
[2021-01-07] MEDS: LACTATED RINGERS 1,000 ML 100 ML IV ×4 (07:23→22:44)
--- NOTE | 2021-01-07 07:38 | PM.PREOP ---
Pre-operative Note COVID-19 COVID-19 status: Negative Result date/Date tested (Pos, Neg/Pending): 01/06/21 Interval Note History & Physical reviewed/Exam performed by Physician: Yes Changes to H&P: No H&P completed within 30 days and has changed as indicated here:: 01/06/21
[2021-01-07] MEDS: APREPITANT 40 MG CAPSULE PO (07:51)
[2021-01-07] MEDS: CEFAZOLIN 1 GM VIAL 2 GM IV (08:15)
--- NOTE | 2021-01-07 08:45 | SUR.OPER ---
Lithotomy on padded OR bed. [place] Pad Positioner under torso. Head on pillow, arms padded and tucked at sides. Legs secured in padded yellow fins stirrups.
[2021-01-07] MEDS: BUPIVACAINE 0.25% (PF) 30 ML, EPINEPHrine 0.15 MG INJ ×2 (08:58→09:41)
[2021-01-07] MEDS: BUPIVACAINE 0.5% (PF) 30 ML, EPINEPHrine 0.15 MG INJ (09:01)
[2021-01-07] MEDS: LACTATED RINGERS 1,000 ML 42 ML IV (11:18)
[2021-01-07] MEDS: METOCLOPRAMIDE 10 MG/2 ML INJ IV (11:21)
[2021-01-07] MEDS: HYDROMORPHONE 2 MG INJ IV (11:21)
--- NOTE | 2021-01-07 11:21 | PM.GYNOP.1 ---
Operative Date/Time/Diagnoses Date of procedure: 01/07/21 Time of procedure: 11:22 Pre-op diagnosis: Uterine prolapse Cystocele and rectocele Post-op diagnosis: same Procedure & Clinicians Procedure: Procedures Operation Date: 01/07/21 07:45 Actual Procedure Side Surgeon p Laparoscopic Assisted Vag Hysterectomy w/Bilateral Salpingectomy/ Dulce Chin MD s Anterior-Posterior Repair, Sacrospinous ligament fixation Dulce Chin MD Indications: Symptomatic uterine prolapse, cystocele, and rectocele Surgeon: Dulce Chin Airplane Cabin Attendant: Snow Watson Anesthesia Type: General and Local Operative Notes Findings: Eight week size prolapsed uterus Normal tubes and ovaries Gallbladder previously removed Normal liver Normal appendix Third-degree cystocele Third-degree rectocele Third-degree uterine prolapse Closure Type: primary Specimen(s): left tube, right tube and uterus Applied: catheter and other (Packing) Estimated blood loss (mL): 150 Blood products transfused: none Procedure in detail: The patient was taken to the operating room where she was placed in the dorsal supine position. After adequate general endotracheal anesthesia was achieved, she was placed in the dorsal lithotomy position, and prepped and draped in the usual sterile fashion. A bivalve speculum was placed into the vagina, and a single-tooth tenaculum was placed on the anterior lip of the cervix. The cervical os was sequentially dilated until the ZUMI uterine manipulator could pass easily into the endometrial cavity. The single-tooth tenaculum was removed from the anterior lip of the cervix, and the bivalve speculum was removed from the vagina. Attention was then turned to the abdomen where 6 mL of half percent Marcaine with epinephrine were injected in the umbilical fold. A 5 mm incision was made. The Verees needle was placed into the peritoneal cavity, and its placement confirmed by aspiration and drop test. The abdominal cavity was insufflated with 4 L of CO2. The Verees needle was removed, and a 5 mm trocar was placed without difficulty. Initial inspection of the pelvis revealed the findings noted above. 2 other incisions were made 4 cm lateral to the umbilicus on either side. These were 5 mm incisions. Two 5 mm trochars were placed under direct visualization. The right tube was grasped with an atraumatic grasper. Using the PlasmaKinetic with settings at 40 w, the mesosalpinx on the right side was cauterized and cut all the way down to the cornua of the uterus. The round ligament and broad ligament were cauterized and cut, all the way down to the uterine arteries. This was repeated on the patient's left side. The instruments were removed from the abdomen. The CO2 was allowed to escape. The instruments and the abdomen were covered with sterile towels. Attention was then turned to the vagina where the ZUMI uterine manipulator was removed from the uterus. The cervix was grasped with a 4 tooth tenaculum. 10 mL of quarter percent Marcaine with epinephrine were injected circumferentially around the cervix. The cervix was circumscribed. The bladder and rectum were dissected off the lower uterine segment and cervix with an open moistened Ray-Ronak. The peritoneum was entered sharply with the Metzenbaum scissors anteriorly and a Piasa placed. The peritoneum was entered posteriorly with the Metzenbaum scissors and the long weighted speculum was placed into the posterior cul-de-sac. The uterosacral cardinal ligament complexes were clamped, transected, and suture ligated with 0 Vicryl. These were attached to a hemostat. The uterine arteries were clamped, transected, and suture ligated with 0 Vicryl. The uterus was handed off for specimen with the tubes. The pedicles were hemostatic. The peritoneum was closed with a pursestring suture with 2-0 Vicryl. The vaginal cuff was closed with 0 Vicryl with a series of simple interrupted sutures. The tagged sutures were cut. Allis clamps were placed at the apex of the cystocele and the most proximal portion. 6 mL of half percent Marcaine with epinephrine were injected submucosally and an incision was made with a #10 blade between the 2 Allis clamps. Wide Allis clamps were placed on the midline of the cystocele approximately 5. The mucosa was dissected off the underlying fascia using an open moistened Ray-Ronak and a #10 blade. The fascia was reapproximated with 0 Vicryl with a series of horizontal mattress sutures. The excess vaginal mucosa was excised. The mucosa was closed using 2-0 Vicryl in a running interlocking fashion, including the underlying fascia to close the space. The weighted speculum was removed from the vagina. Allis clamps were placed at the mucocutaneous junction at the introitus. 6 mL of half percent Marcaine with epinephrine were injected. An incision was made with a #10 blade between the 2 Allis clamps, and a triangular piece of skin and underlying subcutaneous tissue was removed. Allis clamps were placed at the apex and most proximal portion of the rectocele. 10cc of half percent Marcaine with epinephrine were injected submucosally. An incision was made between the 2 Allis clamps and wide Allis clamps were placed on the edges of the mucosa. The underlying fascia was dissected off of the mucosa using an open moistened Ray-Ronak and a #10 blade. The perirectal space on the right side was dissected bluntly digitally. The sacral spinous ligament was identified and cleared of all adventitial tissue. 0 Prolene on a Capio needle was placed into the sacral spinous ligament 2 cm away from the ischial spine. This was then placed through the vaginal tissue with care not to include the mucosa. A second stitch was placed a few mm from the first in the sacral spinous ligament, and then brought through the vagina with care not to include the mucosa. The mucosa was closed with 2-0 Vicryl with a running interlocking suture, approximately 4 stitches. The sacrospinous ligament fixation sutures were tied down. The fascia was reapproximated using 0 Vicryl with a series of horizontal mattress sutures. The excess vaginal mucosa was excised. The remainder of the vaginal mucosa was closed with the 2-0 Vicryl running interlocking suture including the underlying fascia to close the space. 0 Vicryl was used to reapproximate the levator muscle. The subcutaneous layer was closed with 2-0 Vicryl. The skin was closed with 3-0 chromic in a subcuticular fashion. Hemostasis was achieved. A Betadine moistened vaginal pack was placed into the vagina. A rectal exam was done and there were no sutures palpable in the rectum. The urine was clear. Attention was turned back to the abdomen where the abdomen was re-insufflated with carbon dioxide gas. The patient was placed into Trendelenburg. The pedicles an vaginal cuff were examined and found to be hemostatic. The instruments were removed from the abdomen. The CO2 was allowed to escape. The incisions were closed with 4-0 Monocryl in a subcuticular fashion. Steri-Strips and Allevyn dressings were placed. Sponge, lap, and instrument counts were correct x-2. The patient tolerated the procedure well, and was taken to PACU in stable condition. Complications: none Post-operative Condition: stable Disposition: PACU Plan for aftercare: To Acute care after recovery
--- NOTE | 2021-01-07 11:40 | SUR.PHASEI ---
Patient c/o pressure from miller catheter; miller draining without difficulty; patient taking sips of juice without difficulty; vss;
[2021-01-07] MEDS: ACETAMINOPHEN 325 MG TABLET 650 MG PO ×3 (12:20→23:20)
[2021-01-07] MEDS: OXYCODONE IR 5 MG TABLET PO ×2 (12:20→14:51)
[2021-01-07] MEDS: KETOROLAC 30 MG/ML VIAL IV ×2 (17:38→23:20)
[2021-01-07] MEDS: OXYCODONE IR 10 MG TABLET PO ×2 (17:39→21:16)
[2021-01-07] MEDS: DOCUSATE 100 MG CAPSULE 200 MG PO (20:27)
[2021-01-07] MEDS: hydrOXYzine pamoate 25 MG CAPSULE PO (20:27)
[2021-01-08] MEDS: hydrOXYzine pamoate 25 MG CAPSULE PO ×2 (01:23→09:37)
[2021-01-08] MEDS: OXYCODONE IR 10 MG TABLET PO ×4 (01:24→13:42)
[2021-01-08] MEDS: KETOROLAC 30 MG/ML VIAL IV ×2 (05:22→12:05)
[2021-01-08] MEDS: ACETAMINOPHEN 325 MG TABLET 650 MG PO ×2 (05:23→12:05)
[2021-01-08 05:27] VITALS: BP 110/63; PULSE 63; RESP 16; TEMP 37; O2SAT 98
[2021-01-08 06:15] LABS: Add Manual Diff / Slide Review NO; Basophils Absolute Auto 0 /uL (0-100); Basophils Percent Auto 0.3 % (0-2); Eosinophils Absolute Auto 0 /uL (0-450); Eosinophils Percent Auto 0.6 % (2-4); Hematocrit 35.1 % (36-46); Hemoglobin 11.8 g/dL (12.0-16.0); Lymphocytes Absolute Auto 2000 /uL (1100-4500); Lymphocytes Percent Auto 27.1 % (25-40); Mean Corpuscular HGB Conc 33.7 % (30-36); Mean Corpuscular Hemoglobin 28.7 PG (26-34); Mean Corpuscular Volume 85.3 fL (80-100); Monocytes Absolute Auto 500 /uL (0-900); Monocytes Percent Auto 6.7 % (3-14); Neutrophils Absolute Auto 4700 /uL (1500-7000); Neutrophils Percent Auto 65.3 % (50-75); Platelet Count 208 X10^3/uL (150-400); Red Blood Cell Count 4.12 X10^6/uL (4.0-5.2); Red Cell Distribution Width 12.9 % (11.6-14.8); White Blood Cell Count 7.3 X10^3/uL (4.5-11.0)
[2021-01-08 09:10] VITALS: BP 111/63; PULSE 64; RESP 16; TEMP 37.5; O2SAT 95
[2021-01-08] MEDS: DOCUSATE 100 MG CAPSULE 200 MG PO (09:36)
[2021-01-08] MEDS: METOCLOPRAMIDE 10 MG/2 ML INJ IV (12:05)
--- NOTE | 2021-01-08 14:01 | PC.NURSE ---
Discharge note: Patient teaching down at bedside with patient and spouse. All questions and concerns were addressed. IV removed, pt carla. well. Patient's at bedside to help get dressed. Patient left in stable condition, VSS. Pain meds given by primary nurse at 1330. Pain meds sent to [facility] [place] by provider. Pt aware. Belongings taken down by spouse and patient.
--- NOTE | 2021-01-08 17:56 | PM.PNPO.1 ---
Subjective Subjective Date Patient Seen: 01/08/21 Time Patient Seen: 13:15 Interval history: Patient is postop day # 1 status post LAVH/bilateral salpingectomy/anterior and posterior repair/sacral spinous ligament fixation. She had some pain issues overnight which finally resolved by increasing the dose of oxycodone to 10 mg and adding Vistaril. Her catheter and vaginal packing were removed at 8:00 a.m. this morning. She has voided 400 cc of clear yellow urine. Her postvoid residual was a little over 100 cc. Exam Vital Signs (past 8 hours): Oxygen Delivery Method Room Air Oxygen Flow Rate 0 Narrative Exam Narrative: Generally: Patient is sitting up in bed, no acute distress Lungs: Clear to auscultation bilaterally Cardiovascular: Regular rate and rhythm Abdomen: Soft and flat. Good bowel sounds in all 4 quadrants. Incisions: Clean dry and intact with Allevyn dressings Extremities: Negative Homans, no edema Objective Labs Result Diagrams: 01/08/21 05:49 Labs: Laboratory Results - last 24 hr 01/08/21 05:49 WBC 7.3 RBC 4.12 Hgb 11.8 L Hct 35.1 L MCV 85.3 MCH 28.7 MCHC 33.7 RDW 12.9 Plt Count 208 Neut % (Auto) 65.3 Lymph % (Auto) 27.1 Appling % (Auto) 6.7 Eos % (Auto) 0.6 L Baso % (Auto) 0.3 Neut # (Auto) 4700 Lymph # (Auto) 2000 Appling # (Auto) 500 Eos # (Auto) 0 Baso # (Auto) 0 PFSH Medical History (Updated 08/08/20 @ 12:25 by Snow Watson MD) Abnormal Pap smear of cervix (2007) Asthma (2009) Chicken pox (1991) Hayfever (2009) HPV (human papilloma virus) infection (2006) Hyperemesis gravidarum Irregular periods/menstrual cycles (2003) PCOS (polycystic ovarian syndrome) (2009) Spontaneous vaginal delivery Surgical History (Updated 01/06/21 @ 08:28 by Anjelica Zimmerman RN) Hx laparoscopic cholecystectomy (10/06/18) Family History Mother Age: 56 Ovarian cyst Sister Age: 32 MS (multiple sclerosis) Brother No problems noted. Grandfather No problems noted. Grandmother No problems noted. Sister No problems noted. Daughter No problems noted. Daughter No problems noted. Social History marital status: number of children: 2 household members: spouse, family and children lives independently: Yes caregiver/support person: No housing: house occupational status: employed Smoking Status: Never smoker second hand exposure: No alcohol intake: current substance use type: does not use Assessment & Plan Post-op Postoperative Procedures: Procedures Operation Date: 01/07/21 07:45 Actual Procedure Side Surgeon p Laparoscopic Assisted Vag Hysterectomy w/Bilateral Salpingectomy/ Dulce Chin MD s Anterior-Posterior Repair, Sacrospinous ligament fixation Dulce Chin MD Postoperative day: 1 Postoperative status: doing well Postoperative plan: voiding trials (Completed) and discharge Time Spent With Patient Time with patient: 15-24 minutes Quality VTE Deep Vein Thrombosis/Pulmonary Embolism Present on Admission: No
== END 2021-01-08 14:07 | disposition home or self-care (01) ==
LOC: OR 06:45 → AC 06:45
PROVIDERS: PCP Family Medicine; Referring Provider Obstetrics & Gynecology; Visit Provider Obstetrics & Gynecology
PROC: 0UT9FZZ Resection of Uterus, Via Natural or Artificial Opening With Percutaneous Endoscopic Assistance (ICD-10-PCS; principal; 2021-01-07 07:45)
DX: N81.3 Complete uterovaginal prolapse (principal); N81.6 Rectocele; E66.9 Obesity, unspecified
CPT/HCPCS: 58552; 57260; 36415; 81025; 85025; J0171; J0690; J1100; J1170; J1885; J2250; J2704; J2765; J3010; J8501

== ENCOUNTER → 2021-02-27 16:22 | Outpatient (CLI) | payer BC, SELFPAY ==
[2021-01-07 12:23] VITALS: BMI 33.2
[2021-02-28 08:01] LABS: Candida species Negative (Negative); Gardnerella vaginalis Negative (Negative); Trichomoas vaginalis Negative (Negative)
== END ==
PROVIDERS: PCP Family Medicine; Referring Provider Obstetrics & Gynecology; Visit Provider Obstetrics & Gynecology
DX: N76.0 Acute vaginitis (principal)
CPT/HCPCS: 87480; 87510; 87660

== ENCOUNTER 2021-10-14 16:00 | Outpatient (RCR) | payer BC, OTHER, SELFPAY ==
[2021-01-07 12:23] VITALS: BMI 33.2
--- NOTE | 2021-03-27 10:45 | PT.OIE ---
Current Diagnoses Incomplete uterovaginal prolapse (03/27/21) Past Medical History (Last Updated 08/08/20 @ 12:25 by Snow Watson MD) Abnormal Pap smear of cervix (2007) Asthma (2009) Chicken pox (1991) Hayfever (2009) HPV (human papilloma virus) infection (2006) Hx laparoscopic cholecystectomy (10/06/18) Hyperemesis gravidarum Irregular periods/menstrual cycles (2003) PCOS (polycystic ovarian syndrome) (2009) Spontaneous vaginal delivery Past Surgical History (Last Updated 01/06/21 @ 08:28 by Anjelica Zimmerman RN) Hx laparoscopic cholecystectomy (10/06/18) Visit Care Team Role Provider Type Kathryn Leyva MD Attending Provider Physician Family Provider Primary Care Provider Referring Provider Specialty: Family Practice Address: [address] [place] [address], [facility] Email: [email or web address] Physical Therapy Initial Evaluation PT-OP-A Visit Information Start: 03/27/21 09:38 Freq: Status: Active Protocol: Document 03/27/21 09:42 [facility] (Rec: 03/27/21 09:59 [facility] [id number]) Out-Patient Physical Therapy Visit Information Visit Information Visit Type Initial Evaluation Visit Start Time 09:45 Visit Stop Time 10:30 Total Visit Minutes 45 Visit Number 1 Evaluation Information Evaluation Date 03/27/21 PT-OP-B Current Condition Start: 03/27/21 09:38 Freq: Status: Active Protocol: Document 03/27/21 09:45 [facility] (Rec: 03/27/21 09:59 [facility] [id number]) Current Condition History of Current Condition Onset Date January 07 Current Complaints pt complains of rectal pressure primarily in the rectum and sphincter History of Current Condition pt presents to PT 10 weeks s/p salpingectomy/anterior and posterior repair/sacral spinous ligament fixation. Pt reports she was healing but then started having a odor which turned out to be a infection. She was given cream to use and after 5 days of discharge this did get better but she is still feeling that she hasn't healed all the way She still feels so much pressure in her rectum and sphincter, she feels like she has to clench because it still feels like it is trying to come out. It is worse in the last 2 weeks since she has gone back to work. She doesn' t have the bulge any more and she can void. She feels like her bowels can be liquidy and feels this may be due to her gal bladder. SHe feels like her pelvic pressure that was medially is not there but she feels it in the rectum. March 03 was her first day back to work. Treatment Goals Patient/Caregiver Goals Brittney's goals include reducing pelvic pressure so that she can return to a higher level of exercise and work without increased pelvic pressure Current Functional Impairments (Reported) Functional Limitations- Work/School limitations with standing duration prior to pelvic heaviness and guarding Functional Limitations- Recreation/ pt has been very limited with Hobbies her exercise level due to pelvic heaviness and pressure. She has not been able to return to running PT-OP-C Subjective Start: 03/27/21 09:38 Freq: Status: Active Protocol: Document 03/27/21 09:45 [facility] (Rec: 04/01/21 09:39 [facility] [id number]) Patient Questionnaires Pelvic Pain and Urgency/Frequency Patient Symptom Scale Pelvic Pain Score 8 OP-PT Pain Assessment Pain Assessment Grid Paper Pain Assessment Grid Completed Yes Location pelvic floor Pain Location Details pelvic floor Intensity 3 Scale Used Numeric (0 - 10) Description Aching,Pressure,With Movement Frequency Frequent Pain Aggravating Factors Activity,Exercise,Standing, Walking PT-OP-I Pelvic Floor Start: 03/27/21 09:38 Freq: Status: Active Protocol: Document 03/27/21 09:45 [facility] (Rec: 04/01/21 09:39 [facility] [id number]) Pelvic Floor Assessment Urine Pelvic Floor Surgery Yes: hysterectomy, bilateral salpingectomy, ant/post re Urinary Symptoms Falling Out Feeling/Heavy Other Urinary Symptoms pelvic pressure and heaviness that is described as being in the rectal region and present all day Bowel Other Bowel Symptoms pressure described over the rectum and bowels Pelvic Clock Pelvic Clock 3-6 Tenderness Pelvic Clock 6-9 Guarding,Tenderness Pelvic Clock Other scar tissue noted over the posterior pelvic floor and above the rectum, some scar tissue/muscle tightness noted on the right pelvic clock near the sacrospinous ligament fixation SEMG (uV) Baseline 2 Recruitment Pattern Good Relaxation Fair Holding Good Stability of Hold Good SEMG Stability of Rest Fair Contraction Ability Voluntary Contraction Moderate Voluntary Relaxation Moderate Manual Muscle Testing Left 4 Manual Muscle Testing Right 4 Manual Muscle Testing Anterior 4 Manual Muscle Testing Posterior 4 Muscle Endurance (Seconds) 8 Comments Pelvic Floor Comments pt is able to facilitate all parts of the levator ani and test 4/5 MMT. She has a much harder time relaxing her pelvic floor. PT-OP-J Posture/Palpation/Skin Start: 03/27/21 09:38 Freq: Status: Active Protocol: Document 03/27/21 09:45 [facility] (Rec: 04/01/21 09:39 [facility] [id number]) Palpation Assessment Location pelvic floor Palpation Location posterior and right lateral wall of the levator ani Palpation Findings Soft Tissue Tightness,Muscle Guarding Palpation Details scar tissue present over the posterior and right lateral wall PT-OP-Q Treatments Start: 03/27/21 09:38 Freq: Status: Active Protocol: Document 03/27/21 09:42 [facility] (Rec: 03/27/21 14:28 [facility] [id number]) Therapeutic Exercises Supine Exercises happy baby and modifed pelvic floor stretch Reps/Minutes hold 1-2 minutes pelvic floor long holds Reps/Minutes 10 seconds on 10 seconds off x 10 reps Manual Therapy Treatment Soft Tissue Mobilization gentle scar tissue release of the posterior pelvic floor Body Location posterior pelvic floor directly at the region of the rectum Mobilization Type Myofascial Release Intensity/Depth Superficial Comments pt has a good amount of scar tissue presesnt which may be the reason she is feeling pressure at her rectum. She did note at the end of treatment today that her symptoms seemed to be a little improved. Self-Care/Home Management Treatment Education Patient Education Home Exercise Program,Pain Management Other Education pt was educated in how to use a therawand/dilator to help reduce scar tissue in the posterior wall of her levator ani. She was given a size xs dilator for home use for scar massage and was shown information on how to order a therawand. PT-OP-T Assessment and Plan Start: 03/27/21 09:38 Freq: Status: Active Protocol: Document 03/27/21 09:45 [facility] (Rec: 04/01/21 09:39 [facility] [id number]) Physical Therapy Assessment Rehab Potential Rehabilitation Potential Good Evaluation Complexity Number of Personal Factors/Comorbidities 0 Number of Body Systems Impaired 1-2 Clinical Presentation at Evaluation Stable Impairments Impairments Activity Tolerance,Functional Activities,Soft Tissue Mobility,Tone Other Impairments pelvic pressure and heaviness Goals 4 Impairment pt is not able to exercise at the intensity that she would like to due to being post surgical, healing, and c/o pelvic pressure and guarding. Fpc Goal (LTG) Brittney is able to gradually return to her exercise routine with the mill controller goal of returning to running eventually LTG Duration 12 weeks 3 Impairment pelvic pain/pressure rated 3/ 10 Fpc Goal (LTG) pt reports a overall reduction in pelvic pain to 0-1/10 LTG Duration 12 weeks 2 Impairment pelvic floor guarding and scar tissue present over the posterior and right lateral cox of the levator ani Short Term Goal (STG) Brittney is able to tolerate gentle scar tissue release promoting improved mobility of her pelvic floor STG Duration 4 weeks Fpc Goal (LTG) There is a reduction in scar tissue and guarding felt with pelvic floor examination in the posterior and right lateral wall. LTG Duration 12 weeks 1 Impairment pt c/o pelvic pressure and heaviness over the rectum and rectal sphincter Director Of Residential Services Goal (LTG) With scar tissue release and MFR treatments Brittney reports overall reduction of pelvic pressure symptoms LTG Duration 8 weeks Assessment Summary Assessment Brittney returns to Physical therapy today 10 weeks s/p salpingectomy, anterior posterior repain with sacrospinous ligament fixation . She reports her pressure in the midline of her pelvic from the uterine prolapse is improved however she is feeling rectal pressure that is with her all day. She notes feeling that she needs to clench her pelvic floor due to the pressure at the rectal sphincter. She did return to work 2 weeks ago. With examination today I am not feeling any rectal prolapse. There is scar tissue felt over the posterior wall of the levator ani and on the right lateral wall near the sacral spinous fixation. She is guarded in her pelvic floor on the right lateral wall. I did do some scar tissue release today and gentle MFR. Brittney reported it did feel a little better following treatment today. I also showed her how to do gentle self scar tissue release with a pelvic floor therawand. She was given a size xs dilator for this today and given information on where to obtain a thera wand. Brittney is able to fully contract her pelvic floor but has difficulty fully relaxing her pelvic floor. Treatment will work on pelvic floor relaxation as well as progressive stabilization from her core. The pressure she is feeling over the rectum is very likely to be due to scar tissue adhesions. She is a good candidate for PT Physical Therapy Plan Frequency and Duration Frequency of Treatment 1x/Week Duration of Treatment 12 Plan of Care Start Date 03/27/21 Plan of Care End Date 05/22/21 Therapeutic Interventions Therapeutic Interventions Home Exercise Program,Manual Therapy,Neuromuscular Re- education,Patient/Caregiver Education,Self-Care/Home Management,Soft Tissue Mobilization,Therapeutic Exercises Modalities Biofeedback,Electric Stimulation Next Visit Focus/Plan Next Note Type Treatment Note Next Visit Plan Scar tissue release over the right lateral and posterior wall of the levator ani, stretches for the pelvic floor , EMG biofeedback contract/ relax of the pelvic floor.
--- NOTE | 2021-03-27 10:45 | PT.OPPOC ---
Physical, Occupational & Speech Therapy At [facility] Current Diagnoses Incomplete uterovaginal prolapse (03/27/21) Visit Care Team Role Provider Type Kathryn Leyva MD Attending Provider Physician Family Provider Primary Care Provider Referring Provider Specialty: Family Practice Address: [address] [place] [address], [id number] Email: [email or web address] Plan Of Care PT-OP-T Assessment and Plan Start: 03/27/21 09:38 Freq: Status: Active Protocol: Document 03/27/21 09:45 [facility] (Rec: 04/01/21 09:39 [facility] [id number]) Physical Therapy Assessment Rehab Potential Rehabilitation Potential Good Evaluation Complexity Number of Personal Factors/Comorbidities 0 Number of Body Systems Impaired 1-2 Clinical Presentation at Evaluation Stable Impairments Impairments Activity Tolerance,Functional Activities,Soft Tissue Mobility,Tone Other Impairments pelvic pressure and heaviness Goals 4 Impairment pt is not able to exercise at the intensity that she would like to due to being post surgical, healing, and c/o pelvic pressure and guarding. Retirement Goal (LTG) Brittney is able to gradually return to her exercise routine with the intermediate project manager goal of returning to running eventually LTG Duration 12 weeks 3 Impairment pelvic pain/pressure rated 3/ 10 Manager Of Medical Goal (LTG) pt reports a overall reduction in pelvic pain to 0-1/10 LTG Duration 12 weeks 2 Impairment pelvic floor guarding and scar tissue present over the posterior and right lateral cox of the levator ani Short Term Goal (STG) Brittney is able to tolerate gentle scar tissue release promoting improved mobility of her pelvic floor STG Duration 4 weeks Manager Of Medical Goal (LTG) There is a reduction in scar tissue and guarding felt with pelvic floor examination in the posterior and right lateral wall. LTG Duration 12 weeks 1 Impairment pt c/o pelvic pressure and heaviness over the rectum and rectal sphincter Manager Of Medical Goal (LTG) With scar tissue release and MFR treatments Brittney reports overall reduction of pelvic pressure symptoms LTG Duration 8 weeks Assessment Summary Assessment Brittney returns to Physical therapy today 10 weeks s/p salpingectomy, anterior posterior repair with sacrospinous ligament fixation . She reports her pressure in the midline of her pelvic from the uterine prolapse is improved however she is feeling rectal pressure that is with her all day. She notes feeling that she needs to clench her pelvic floor due to the pressure at the rectal sphincter. She did return to work 2 weeks ago. With examination today I am not feeling any rectal prolapse. There is scar tissue felt over the posterior wall of the levator ani and on the right lateral wall near the sacral spinous fixation. She is guarded in her pelvic floor on the right lateral wall. I did do some scar tissue release today and gentle MFR. Brittney reported it did feel a little better following treatment today. I also showed her how to do gentle self scar tissue release with a pelvic floor thera wand. She was given a size xs dilator for this today and given information on where to obtain a thera wand. Brittney is able to fully contract her pelvic floor but has difficulty fully relaxing her pelvic floor. Treatment will work on pelvic floor relaxation as well as progressive stabilization from her core. The pressure she is feeling over the rectum is very likely to be due to scar tissue adhesions. She is a good candidate for PT Physical Therapy Plan Frequency and Duration Frequency of Treatment 1x/Week Duration of Treatment 12 Plan of Care Start Date 03/27/21 Plan of Care End Date 05/22/21 Therapeutic Interventions Therapeutic Interventions Home Exercise Program,Manual Therapy,Neuromuscular Re- education,Patient/Caregiver Education,Self-Care/Home Management,Soft Tissue Mobilization,Therapeutic Exercises Modalities Biofeedback,Electric Stimulation Next Visit Focus/Plan Next Note Type Treatment Note Next Visit Plan Scar tissue release over the right lateral and posterior wall of the levator ani, stretches for the pelvic floor , EMG biofeedback contract/ relax of the pelvic floor. Plan of Care Dates Plan of Care Start Date 03/27/21 Plan of Care End Date 05/22/21 Electronically Signed by: Shabana Jean, PT 04/01/21 0958 Please Sign and Return: I have reviewed this Plan of Care and certify that the skilled therapy services above are required to meet the patient?s needs. Physician Signature Date Printed Name and Credentials Clinical Instructor Signature Printed Name and Credentials
--- NOTE | 2021-04-03 15:11 | PT.OTN ---
Current Diagnoses Incomplete uterovaginal prolapse (04/03/21) Physical Therapy Treatment Note PT-OP-A Visit Information Start: 03/27/21 09:38 Freq: Status: Active Protocol: Document 04/03/21 09:05 [facility] (Rec: 04/03/21 09:30 [facility] [id number]) Out-Patient Physical Therapy Visit Information Visit Information Visit Type Treatment Note Visit Start Time 09:05 Visit Stop Time 09:40 Total Visit Minutes 35 Visit Number 2 PT-OP-B Current Condition Start: 03/27/21 09:38 Freq: Status: Active Protocol: Document 03/27/21 09:45 [facility] (Rec: 03/27/21 09:59 [facility] [id number]) Current Condition History of Current Condition Onset Date January 07 Current Complaints pt complains of rectal pressure primarily in the rectum and sphincter History of Current Condition pt presents to PT 10 weeks s/p salpingectomy/anterior and posterior repair/sacral spinous ligament fixation. Pt reports she was healing but then started having a odor which turned out to be a infection. She was given cream to use and after 5 days of discharge this did get better but she is still feeling that she hasn't healed all the way She still feels so much pressure in her rectum and sphincter, she feels like she has to clench because it still feels like it is trying to come out. It is worse in the last 2 weeks since she has gone back to work. She doesn' t have the bulge any more and she can void. She feels like her bowels can be liquidy and feels this may be due to her gal bladder. SHe feels like her pelvic pressure that was medially is not there but she feels it in the rectum. March 03 was her first day back to work. Treatment Goals Patient/Caregiver Goals Brittney's goals include reducing pelvic pressure so that she can return to a higher level of exercise and work without increased pelvic pressure Current Functional Impairments (Reported) Functional Limitations- Work/School limitations with standing duration prior to pelvic heaviness and guarding Functional Limitations- Recreation/ pt has been very limited with Hobbies her exercise level due to pelvic heaviness and pressure. She has not been able to return to running PT-OP-C Subjective Start: 03/27/21 09:38 Freq: Status: Active Protocol: Document 04/03/21 09:00 [facility] (Rec: 04/03/21 09:30 [facility] [id number]) OP-PT Subjective Patient Comments Patient Comments pt notes she did really well following last visit. She notes the first 2 days she felt cramping but by the third day she was starting to feel better, last night was working and noted she did't have any of the pressure pain. PT-OP-I Pelvic Floor Start: 03/27/21 09:38 Freq: Status: Active Protocol: Document 03/27/21 09:45 [facility] (Rec: 04/01/21 09:39 [facility] [id number]) Pelvic Floor Assessment Urine Pelvic Floor Surgery Yes: hysterectomy, bilateral salpingectomy, ant/post re Urinary Symptoms Falling Out Feeling/Heavy Other Urinary Symptoms pelvic pressure and heaviness that is described as being in the rectal region and present all day Bowel Other Bowel Symptoms pressure described over the rectum and bowels Pelvic Clock Pelvic Clock 3-6 Tenderness Pelvic Clock 6-9 Guarding,Tenderness Pelvic Clock Other scar tissue noted over the posterior pelvic floor and above the rectum, some scar tissue/muscle tightness noted on the right pelvic clock near the sacrospinous ligament fixation SEMG (uV) Baseline 2 Recruitment Pattern Good Relaxation Fair Holding Good Stability of Hold Good SEMG Stability of Rest Fair Contraction Ability Voluntary Contraction Moderate Voluntary Relaxation Moderate Manual Muscle Testing Left 4 Manual Muscle Testing Right 4 Manual Muscle Testing Anterior 4 Manual Muscle Testing Posterior 4 Muscle Endurance (Seconds) 8 Comments Pelvic Floor Comments pt is able to facilitate all parts of the levator ani and test 4/5 MMT. She has a much harder time relaxing her pelvic floor. PT-OP-J Posture/Palpation/Skin Start: 03/27/21 09:38 Freq: Status: Active Protocol: Document 03/27/21 09:45 [facility] (Rec: 04/01/21 09:39 [facility] [id number]) Palpation Assessment Location pelvic floor Palpation Location posterior and right lateral wall of the levator ani Palpation Findings Soft Tissue Tightness,Muscle Guarding Palpation Details scar tissue present over the posterior and right lateral wall PT-OP-Q Treatments Start: 03/27/21 09:38 Freq: Status: Active Protocol: Document 04/03/21 09:00 [facility] (Rec: 04/03/21 09:41 [facility] [id number]) Therapeutic Exercises Supine Exercises happy baby and modifed pelvic floor stretch Reps/Minutes hold 1-2 minutes pelvic floor long holds Reps/Minutes 10 seconds on 10 seconds off Comments 39.5 average 66.3 max able to relax to baseline Manual Therapy Treatment Soft Tissue Mobilization gentle scar tissue release of the posterior pelvic floor Body Location posterior pelvic floor directly at the region of the rectum Mobilization Type Myofascial Release Intensity/Depth Superficial Comments good tolerance for scar tissue release both posterior and lateral cox of the levator ani Self-Care/Home Management Treatment Education Other Education review of dilator use for help with relaxation of the levator ani PT-OP-T Assessment and Plan Start: 03/27/21 09:38 Freq: Status: Active Protocol: Document 04/03/21 09:00 [facility] (Rec: 04/06/21 15:08 [facility] [id number]) Physical Therapy Assessment Assessment Summary Assessment Brittney tolerated manual therapy techniques well and after last visit noted decreased c/o pelvic heaviness in the rectal region. Today I worked on scar tissue release in the posterior and right lateral cox of the levator ani. We worked on contract/relax to help decrease the resting tone of the levator ani Physical Therapy Plan Frequency and Duration Frequency of Treatment 1x/Week Duration of Treatment 12 Plan of Care Start Date 03/27/21 Plan of Care End Date 05/22/21 Therapeutic Interventions Therapeutic Interventions Home Exercise Program,Manual Therapy,Neuromuscular Re- education,Patient/Caregiver Education,Self-Care/Home Management,Soft Tissue Mobilization,Therapeutic Exercises Modalities Biofeedback,Electric Stimulation Next Visit Focus/Plan Next Note Type Treatment Note Next Visit Plan Scar tissue release over the right lateral and posterior wall of the levator ani, stretches for the pelvic floor , EMG biofeedback contract/ relax of the pelvic floor.
--- NOTE | 2021-05-08 11:38 | PT.OTN ---
Current Diagnoses Incomplete uterovaginal prolapse (05/08/21) Physical Therapy Treatment Note PT-OP-A Visit Information Start: 03/27/21 09:38 Freq: Status: Active Protocol: Document 05/08/21 09:46 REPLACED BY [facility] (Rec: 05/08/21 10:28 REPLACED BY [facility] [id number]) Out-Patient Physical Therapy Visit Information Visit Information Visit Type Treatment Note Visit Start Time 09:45 Visit Stop Time 10:30 Total Visit Minutes 45 Visit Number 3 PT-OP-B Current Condition Start: 03/27/21 09:38 Freq: Status: Active Protocol: Document 03/27/21 09:45 [facility] (Rec: 03/27/21 09:59 REPLACED BY [facility] [id number]) Current Condition History of Current Condition Onset Date January 07 Current Complaints pt complains of rectal pressure primarily in the rectum and sphincter History of Current Condition pt presents to PT 10 weeks s/p salpingectomy/anterior and posterior repair/sacral spinous ligament fixation. Pt reports she was healing but then started having a odor which turned out to be a infection. She was given cream to use and after 5 days of discharge this did get better but she is still feeling that she hasn't healed all the way She still feels so much pressure in her rectum and sphincter, she feels like she has to clench because it still feels like it is trying to come out. It is worse in the last 2 weeks since she has gone back to work. She doesn' t have the bulge any more and she can void. She feels like her bowels can be liquidy and feels this may be due to her gal bladder. SHe feels like her pelvic pressure that was medially is not there but she feels it in the rectum. March 03 was her first day back to work. Treatment Goals Patient/Caregiver Goals Brittney's goals include reducing pelvic pressure so that she can return to a higher level of exercise and work without increased pelvic pressure Current Functional Impairments (Reported) Functional Limitations- Work/School limitations with standing duration prior to pelvic heaviness and guarding Functional Limitations- Recreation/ pt has been very limited with Hobbies her exercise level due to pelvic heaviness and pressure. She has not been able to return to running PT-OP-C Subjective Start: 03/27/21 09:38 Freq: Status: Active Protocol: Document 05/08/21 09:46 REPLACED BY [facility] (Rec: 05/08/21 10:28 REPLACED BY [facility] [id number]) OP-PT Subjective Patient Comments Patient Comments pt reports on the right side of her pelvic floor it hurts and when she gets tense she can tell it is tight. She feels great afterward the manual therapy treatment. She is no longer having pelvic pressure hardly ever. Jogging does cause some pressure. She has been able to ride her bike without pressure. To pass josey can be painful. Patient Reported Progress Improving PT-OP-I Pelvic Floor Start: 03/27/21 09:38 Freq: Status: Active Protocol: Document 03/27/21 09:45 REPLACED BY [facility] (Rec: 04/01/21 09:39 REPLACED BY [facility] [id number]) Pelvic Floor Assessment Urine Pelvic Floor Surgery Yes: hysterectomy, bilateral salpingectomy, ant/post re Urinary Symptoms Falling Out Feeling/Heavy Other Urinary Symptoms pelvic pressure and heaviness that is described as being in the rectal region and present all day Bowel Other Bowel Symptoms pressure described over the rectum and bowels Pelvic Clock Pelvic Clock 3-6 Tenderness Pelvic Clock 6-9 Guarding,Tenderness Pelvic Clock Other scar tissue noted over the posterior pelvic floor and above the rectum, some scar tissue/muscle tightness noted on the right pelvic clock near the sacrospinous ligament fixation SEMG (uV) Baseline 2 Recruitment Pattern Good Relaxation Fair Holding Good Stability of Hold Good SEMG Stability of Rest Fair Contraction Ability Voluntary Contraction Moderate Voluntary Relaxation Moderate Manual Muscle Testing Left 4 Manual Muscle Testing Right 4 Manual Muscle Testing Anterior 4 Manual Muscle Testing Posterior 4 Muscle Endurance (Seconds) 8 Comments Pelvic Floor Comments pt is able to facilitate all parts of the levator ani and test 4/5 MMT. She has a much harder time relaxing her pelvic floor. PT-OP-J Posture/Palpation/Skin Start: 03/27/21 09:38 Freq: Status: Active Protocol: Document 03/27/21 09:45 REPLACED BY [facility] (Rec: 04/01/21 09:39 REPLACED BY [facility] [id number]) Palpation Assessment Location pelvic floor Palpation Location posterior and right lateral wall of the levator ani Palpation Findings Soft Tissue Tightness,Muscle Guarding Palpation Details scar tissue present over the posterior and right lateral wall PT-OP-Q Treatments Start: 03/27/21 09:38 Freq: Status: Active Protocol: Document 05/08/21 09:45 REPLACED BY [facility] (Rec: 05/08/21 11:36 REPLACED BY [facility] [id number]) Therapeutic Exercises Supine Exercises happy baby and modifed pelvic floor stretch Reps/Minutes hold 1-2 minutes pelvic floor long holds Reps/Minutes 10 seconds on 10 seconds off Comments 39.5 average 66.3 max able to relax to baseline Other Exercises goddess stretch Reps/Minutes hold 30 sec to 1 min Comments pt can feel her adductor in this position standing pelvic floor squat Reps/Minutes hold 1-2 min Comments pt can do this now without any pelvic pressure Self-Care/Home Management Treatment Education Other Education pt educated on stretches for the pelvic floor, contract relax with therawand to relax the levator ani, run walk progression PT-OP-T Assessment and Plan Start: 03/27/21 09:38 Freq: Status: Active Protocol: Document 05/08/21 09:45 REPLACED BY [facility] (Rec: 05/08/21 11:36 REPLACED BY [facility] [id number]) Physical Therapy Assessment Assessment Summary Assessment Brittney is doing better and has decreased c/o pelvic pressure but is still feeling the tightness on the right. There is tightness pf the pelvic floor at the ischial spine on the right and still some tightness over the illiococcygeus on the right Physical Therapy Plan Frequency and Duration Frequency of Treatment 1x/Week Duration of Treatment 12 Plan of Care Start Date 03/27/21 Plan of Care End Date 05/22/21 Therapeutic Interventions Therapeutic Interventions Home Exercise Program,Manual Therapy,Neuromuscular Re- education,Patient/Caregiver Education,Self-Care/Home Management,Soft Tissue Mobilization,Therapeutic Exercises Modalities Biofeedback,Electric Stimulation Next Visit Focus/Plan Next Note Type Treatment Note Next Visit Plan Scar tissue release over the right lateral and posterior wall of the levator ani, stretches for the pelvic floor , EMG biofeedback contract/ relax of the pelvic floor.
--- NOTE | 2021-05-15 12:00 | PT.OTN ---
Current Diagnoses Incomplete uterovaginal prolapse (05/15/21) Physical Therapy Treatment Note PT-OP-A Visit Information Start: 03/27/21 09:38 Freq: Status: Active Protocol: Document 05/15/21 09:45 [facility] (Rec: 05/15/21 11:59 [facility] [id number]) Out-Patient Physical Therapy Visit Information Visit Information Visit Type Treatment Note Visit Start Time 09:45 Visit Stop Time 10:30 Total Visit Minutes 45 Visit Number 4 PT-OP-B Current Condition Start: 03/27/21 09:38 Freq: Status: Active Protocol: Document 03/27/21 09:45 [facility] (Rec: 03/27/21 09:59 [facility] [id number]) Current Condition History of Current Condition Onset Date January 07 Current Complaints pt complains of rectal pressure primarily in the rectum and sphincter History of Current Condition pt presents to PT 10 weeks s/p salpingectomy/anterior and posterior repair/sacral spinous ligament fixation. Pt reports she was healing but then started having a odor which turned out to be a infection. She was given cream to use and after 5 days of discharge this did get better but she is still feeling that she hasn't healed all the way She still feels so much pressure in her rectum and sphincter, she feels like she has to clench because it still feels like it is trying to come out. It is worse in the last 2 weeks since she has gone back to work. She doesn' t have the bulge any more and she can void. She feels like her bowels can be liquidy and feels this may be due to her gal bladder. SHe feels like her pelvic pressure that was medially is not there but she feels it in the rectum. March 03 was her first day back to work. Treatment Goals Patient/Caregiver Goals Brittney's goals include reducing pelvic pressure so that she can return to a higher level of exercise and work without increased pelvic pressure Current Functional Impairments (Reported) Functional Limitations- Work/School limitations with standing duration prior to pelvic heaviness and guarding Functional Limitations- Recreation/ pt has been very limited with Hobbies her exercise level due to pelvic heaviness and pressure. She has not been able to return to running PT-OP-C Subjective Start: 03/27/21 09:38 Freq: Status: Active Protocol: Document 05/15/21 09:50 [facility] (Rec: 03/10/22 10:39 [facility] [id number]) OP-PT Subjective Patient Comments Patient Comments pt reports she was sore following last visit and it lasted for a day, now her pelvic floor does not feel as tight. She has been exercising every day and hasn' t had the pressure. PT-OP-I Pelvic Floor Start: 03/27/21 09:38 Freq: Status: Active Protocol: Document 03/27/21 09:45 [facility] (Rec: 04/01/21 09:39 [facility] [id number]) Pelvic Floor Assessment Urine Pelvic Floor Surgery Yes: hysterectomy, bilateral salpingectomy, ant/post re Urinary Symptoms Falling Out Feeling/Heavy Other Urinary Symptoms pelvic pressure and heaviness that is described as being in the rectal region and present all day Bowel Other Bowel Symptoms pressure described over the rectum and bowels Pelvic Clock Pelvic Clock 3-6 Tenderness Pelvic Clock 6-9 Guarding,Tenderness Pelvic Clock Other scar tissue noted over the posterior pelvic floor and above the rectum, some scar tissue/muscle tightness noted on the right pelvic clock near the sacrospinous ligament fixation SEMG (uV) Baseline 2 Recruitment Pattern Good Relaxation Fair Holding Good Stability of Hold Good SEMG Stability of Rest Fair Contraction Ability Voluntary Contraction Moderate Voluntary Relaxation Moderate Manual Muscle Testing Left 4 Manual Muscle Testing Right 4 Manual Muscle Testing Anterior 4 Manual Muscle Testing Posterior 4 Muscle Endurance (Seconds) 8 Comments Pelvic Floor Comments pt is able to facilitate all parts of the levator ani and test 4/5 MMT. She has a much harder time relaxing her pelvic floor. PT-OP-J Posture/Palpation/Skin Start: 03/27/21 09:38 Freq: Status: Active Protocol: Document 03/27/21 09:45 [facility] (Rec: 04/01/21 09:39 [facility] [id number]) Palpation Assessment Location pelvic floor Palpation Location posterior and right lateral wall of the levator ani Palpation Findings Soft Tissue Tightness,Muscle Guarding Palpation Details scar tissue present over the posterior and right lateral wall PT-OP-Q Treatments Start: 03/27/21 09:38 Freq: Status: Active Protocol: Document 05/15/21 09:50 [facility] (Rec: 05/15/21 10:39 [facility] [id number]) Therapeutic Exercises Supine Exercises crunches Reps/Minutes x 10 Comments with ball bridges with ball Reps/Minutes 10 reps Standing Exercises standing sidebend stretch Reps/Minutes 1-2 reps PT-OP-T Assessment and Plan Start: 03/27/21 09:38 Freq: Status: Active Protocol: Document 05/15/21 09:45 [facility] (Rec: 05/15/21 11:59 [facility] [id number]) Physical Therapy Assessment Goals 4 Impairment pt is not able to exercise at the intensity that she would like to due to being post surgical, healing, and c/o pelvic pressure and guarding. 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 Pt is now starting to work towards more cardio and core stabilization as pelvic pressure has decreased LTG Duration 12 weeks 3 Impairment pelvic pain/pressure rated 3/ 10 Lead Relay Tester Goal (LTG) pt reports a overall reduction in pelvic pain to 0-1/10 excellent progress LTG Duration 12 weeks 2 Impairment pelvic floor guarding and scar tissue present over the posterior and right lateral cox of the levator ani Short Term Goal (STG) Brittney is able to tolerate gentle scar tissue release promoting improved mobility of her pelvic floor GOAL MET STG Duration 4 weeks [facility] Goal (LTG) There is a reduction in scar tissue and guarding felt with pelvic floor examination in the posterior and right lateral wall. Goal met LTG Duration 12 weeks 1 Impairment pt c/o pelvic pressure and heaviness over the rectum and rectal sphincter Lead Relay Tester Goal (LTG) With scar tissue release and MFR treatments Brittney reports overall reduction of pelvic pressure symptoms Pt is not currently complaining of the rectal or pelvic pressure. I am working with her for a return to exercise and progressing her core stabilization to prevent further pressure down on her pelvic floor LTG Duration 8 weeks Progress Towards Goals Progress Towards Goals Progressing Toward Goals Progress Comments Brittney is progressing well with overall decreased c/o pelvic pressure and pelvic pain Assessment Summary Assessment Brittney asked to work on core stabilziation today as she is feeling overall decreased pressure in her pelvic floor but is experiencing back discomfort. She tends to hinge at the thoracolumbar juction so we worked today on segmental mobility and stabilization of the lumbar spine as well as ways to decompress her lumbar spine. Pt did tolerate this well but had some back discomfort so was given ice at the end of treatment. Treatment will focus on returning core strength to more functional levels for ADL's and her exercise routine. Physical Therapy Plan Frequency and Duration Frequency of Treatment 1x/Week Duration of Treatment 12 Plan of Care Start Date 03/27/21 Plan of Care End Date 05/22/21 Therapeutic Interventions Therapeutic Interventions Home Exercise Program,Manual Therapy,Neuromuscular Re- education,Patient/Caregiver Education,Self-Care/Home Management,Soft Tissue Mobilization,Therapeutic Exercises Modalities Biofeedback,Electric Stimulation Next Visit Focus/Plan Next Note Type Treatment Note Next Visit Plan Review stabilization exercises and stretches given today, progress as Chylsea is able to tolerate
--- NOTE | 2021-05-15 12:02 | PT.OPPOC ---
Physical, Occupational & Speech Therapy At [facility] Current Diagnoses Incomplete uterovaginal prolapse (05/15/21) Visit Care Team Role Provider Type Kathryn Leyva MD Attending Provider Physician Family Provider Primary Care Provider Referring Provider Specialty: Family Practice Address: [address] [place] [address], [id number] Email: [email or web address] Plan Of Care PT-OP-T Assessment and Plan Start: 03/27/21 09:38 Freq: Status: Active Protocol: Document 05/15/21 09:45 [facility] (Rec: 05/15/21 11:59 [facility] [id number]) Physical Therapy Assessment Goals 4 Impairment pt is not able to exercise at the intensity that she would like to due to being post surgical, healing, and c/o pelvic pressure and guarding. 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 Pt is now starting to work towards more cardio and core stabilization as pelvic pressure has decreased LTG Duration 12 weeks 3 Impairment pelvic pain/pressure rated 3/ 10 [facility] Goal (LTG) pt reports a overall reduction in pelvic pain to 0-1/10 excellent progress LTG Duration 12 weeks 2 Impairment pelvic floor guarding and scar tissue present over the posterior and right lateral cox of the levator ani Short Term Goal (STG) Brittney is able to tolerate gentle scar tissue release promoting improved mobility of her pelvic floor GOAL MET STG Duration 4 weeks Cylinder Block Mechanic Goal (LTG) There is a reduction in scar tissue and guarding felt with pelvic floor examination in the posterior and right lateral wall. Goal met LTG Duration 12 weeks 1 Impairment pt c/o pelvic pressure and heaviness over the rectum and rectal sphincter Cylinder Block Mechanic Goal (LTG) With scar tissue release and MFR treatments Brittney reports overall reduction of pelvic pressure symptoms Pt is not currently complaining of the rectal or pelvic pressure. I am working with her for a return to exercise and progressing her core stabilization to prevent further pressure down on her pelvic floor LTG Duration 8 weeks Progress Towards Goals Progress Towards Goals Progressing Toward Goals Progress Comments Brittney is progressing well with overall decreased c/o pelvic pressure and pelvic pain. Scar tissue is reduced overall in the posterior wall of the levator ani and right lateral wall. Assessment Summary Assessment Brittney asked to work on core stabilization today as she is feeling overall decreased pressure in her pelvic floor but is experiencing back discomfort. She tends to hinge at the thoracolumbar junction so we worked today on segmental mobility and stabilization of the lumbar spine as well as ways to decompress her lumbar spine. Pt did tolerate this well but had some back discomfort so was given ice at the end of treatment. Treatment will focus on returning core strength to more functional levels for ADL's and her exercise routine. Physical Therapy Plan Frequency and Duration Frequency of Treatment 1x/Week Duration of Treatment 12 Plan of Care Start Date 05/15/21 Plan of Care End Date 08/07/21 Therapeutic Interventions Therapeutic Interventions Home Exercise Program,Manual Therapy,Neuromuscular Re- education,Patient/Caregiver Education,Self-Care/Home Management,Soft Tissue Mobilization,Therapeutic Exercises Modalities Biofeedback,Electric Stimulation Next Visit Focus/Plan Next Note Type Treatment Note Next Visit Plan Review stabilization exercises and stretches given today, progress as Brittney is able to tolerate Plan of Care Dates Plan of Care Start Date 05/15/21 Plan of Care End Date 08/07/21 Electronically Signed by: Shabana Jean, PT 05/15/21 1206 Please Sign and Return: I have reviewed this Plan of Care and certify that the skilled therapy services above are required to meet the patient?s needs. Physician Signature Date Printed Name and Credentials Clinical Instructor Signature Printed Name and Credentials
--- NOTE | 2021-06-04 14:03 | PT.OTN ---
Current Diagnoses Incomplete uterovaginal prolapse (06/04/21) Physical Therapy Treatment Note PT-OP-A Visit Information Start: 03/27/21 09:38 Freq: Status: Active Protocol: Document 06/04/21 12:53 [facility] (Rec: 06/04/21 14:01 [facility] [id number]) Out-Patient Physical Therapy Visit Information Visit Information Visit Type Treatment Note Visit Start Time 12:55 Visit Stop Time 13:40 Total Visit Minutes 40 Visit Number 5 PT-OP-B Current Condition Start: 03/27/21 09:38 Freq: Status: Active Protocol: Document 03/27/21 09:45 [facility] (Rec: 03/27/21 09:59 [facility] [id number]) Current Condition History of Current Condition Onset Date January 07 Current Complaints pt complains of rectal pressure primarily in the rectum and sphincter History of Current Condition pt presents to PT 10 weeks s/p salpingectomy/anterior and posterior repair/sacral spinous ligament fixation. Pt reports she was healing but then started having a odor which turned out to be a infection. She was given cream to use and after 5 days of discharge this did get better but she is still feeling that she hasn't healed all the way She still feels so much pressure in her rectum and sphincter, she feels like she has to clench because it still feels like it is trying to come out. It is worse in the last 2 weeks since she has gone back to work. She doesn' t have the bulge any more and she can void. She feels like her bowels can be liquidy and feels this may be due to her gal bladder. SHe feels like her pelvic pressure that was medially is not there but she feels it in the rectum. March 03 was her first day back to work. Treatment Goals Patient/Caregiver Goals Brittney's goals include reducing pelvic pressure so that she can return to a higher level of exercise and work without increased pelvic pressure Current Functional Impairments (Reported) Functional Limitations- Work/School limitations with standing duration prior to pelvic heaviness and guarding Functional Limitations- Recreation/ pt has been very limited with Hobbies her exercise level due to pelvic heaviness and pressure. She has not been able to return to running PT-OP-C Subjective Start: 03/27/21 09:38 Freq: Status: Active Protocol: Document 06/04/21 12:53 [facility] (Rec: 06/04/21 14:01 [facility] [id number]) OP-PT Subjective Patient Comments Patient Comments pt reports with snezing she is noticing some pelvic floor engagement prior, she is more aware of where her pelvis is with walking, She felt strain in her pelvic floor when there is stress, it gets pinchy becuase her muscles wont unclench. It feels like her left side now instead of her right side. PT-OP-I Pelvic Floor Start: 03/27/21 09:38 Freq: Status: Active Protocol: Document 03/27/21 09:45 [facility] (Rec: 04/01/21 09:39 [facility] [id number]) Pelvic Floor Assessment Urine Pelvic Floor Surgery Yes: hysterectomy, bilateral salpingectomy, ant/post re Urinary Symptoms Falling Out Feeling/Heavy Other Urinary Symptoms pelvic pressure and heaviness that is described as being in the rectal region and present all day Bowel Other Bowel Symptoms pressure described over the rectum and bowels Pelvic Clock Pelvic Clock 3-6 Tenderness Pelvic Clock 6-9 Guarding,Tenderness Pelvic Clock Other scar tissue noted over the posterior pelvic floor and above the rectum, some scar tissue/muscle tightness noted on the right pelvic clock near the sacrospinous ligament fixation SEMG (uV) Baseline 2 Recruitment Pattern Good Relaxation Fair Holding Good Stability of Hold Good SEMG Stability of Rest Fair Contraction Ability Voluntary Contraction Moderate Voluntary Relaxation Moderate Manual Muscle Testing Left 4 Manual Muscle Testing Right 4 Manual Muscle Testing Anterior 4 Manual Muscle Testing Posterior 4 Muscle Endurance (Seconds) 8 Comments Pelvic Floor Comments pt is able to facilitate all parts of the levator ani and test 4/5 MMT. She has a much harder time relaxing her pelvic floor. PT-OP-J Posture/Palpation/Skin Start: 03/27/21 09:38 Freq: Status: Active Protocol: Document 03/27/21 09:45 [facility] (Rec: 04/01/21 09:39 [facility] [id number]) Palpation Assessment Location pelvic floor Palpation Location posterior and right lateral wall of the levator ani Palpation Findings Soft Tissue Tightness,Muscle Guarding Palpation Details scar tissue present over the posterior and right lateral wall PT-OP-Q Treatments Start: 03/27/21 09:38 Freq: Status: Active Protocol: Document 06/04/21 12:53 [facility] (Rec: 06/04/21 14:01 [facility] [id number]) Therapeutic Exercises Supine Exercises long sitting stretch Reps/Minutes hold 1-2 minutes crunches Reps/Minutes x 10 Comments with ball bridges with ball Reps/Minutes 10 reps happy baby and modifed pelvic floor stretch Supine Exercise Name for HEP Other Exercises down dog stretch Comments pt can feel a pressure point at the perienum goddess stretch Reps/Minutes hold 30 sec to 1 min Comments pt can feel her adductor in this position Manual Therapy Treatment Soft Tissue Mobilization right levator ani release Comments release of the right side of the levator ani with contract relax obturator internus Body Location left OI Comments obturator internus release on the left gentle scar tissue release of the posterior pelvic floor Body Location posterior pelvic floor directly at the region of the rectum Mobilization Type Myofascial Release Intensity/Depth Superficial Comments good tolerance for scar tissue release both posterior and lateral cox of the levator ani PT-OP-T Assessment and Plan Start: 03/27/21 09:38 Freq: Status: Active Protocol: Document 06/04/21 12:53 [facility] (Rec: 06/04/21 14:01 [facility] [id number]) Physical Therapy Assessment Assessment Summary Assessment still some tightness and scar tissue above the rectum both centrally and on the left side . pt was tender in the obturator internus region on the left today. Still tight on the right iliococcygeus but no pain. Pt is cycling and we talked about her stretches to open up at the sitting bones following cycling Physical Therapy Plan Frequency and Duration Frequency of Treatment 1x/Week Duration of Treatment 12 Plan of Care Start Date 05/15/21 Plan of Care End Date 08/07/21 Therapeutic Interventions Therapeutic Interventions Home Exercise Program,Manual Therapy,Neuromuscular Re- education,Patient/Caregiver Education,Self-Care/Home Management,Soft Tissue Mobilization,Therapeutic Exercises Modalities Biofeedback,Electric Stimulation Next Visit Focus/Plan Next Note Type Treatment Note Next Visit Plan Review stabilization exercises and stretches given today, progress as Chylsea is able to tolerate
--- NOTE | 2021-06-04 18:32 | PT.OTN ---
Current Diagnoses Incomplete uterovaginal prolapse (06/04/21) Physical Therapy Treatment Note PT-OP-A Visit Information Start: 03/27/21 09:38 Freq: Status: Active Protocol: Document 06/04/21 12:53 [facility] (Rec: 06/04/21 14:01 [facility] [id number]) Out-Patient Physical Therapy Visit Information Visit Information Visit Type Treatment Note Visit Start Time 12:55 Visit Stop Time 13:40 Total Visit Minutes 40 Visit Number 5 PT-OP-B Current Condition Start: 03/27/21 09:38 Freq: Status: Active Protocol: Document 03/27/21 09:45 [facility] (Rec: 03/27/21 09:59 [facility] [id number]) Current Condition History of Current Condition Onset Date January 07 Current Complaints pt complains of rectal pressure primarily in the rectum and sphincter History of Current Condition pt presents to PT 10 weeks s/p salpingectomy/anterior and posterior repair/sacral spinous ligament fixation. Pt reports she was healing but then started having a odor which turned out to be a infection. She was given cream to use and after 5 days of discharge this did get better but she is still feeling that she hasn't healed all the way She still feels so much pressure in her rectum and sphincter, she feels like she has to clench because it still feels like it is trying to come out. It is worse in the last 2 weeks since she has gone back to work. She doesn' t have the bulge any more and she can void. She feels like her bowels can be liquidy and feels this may be due to her gal bladder. SHe feels like her pelvic pressure that was medially is not there but she feels it in the rectum. March 03 was her first day back to work. Treatment Goals Patient/Caregiver Goals Brittney's goals include reducing pelvic pressure so that she can return to a higher level of exercise and work without increased pelvic pressure Current Functional Impairments (Reported) Functional Limitations- Work/School limitations with standing duration prior to pelvic heaviness and guarding Functional Limitations- Recreation/ pt has been very limited with Hobbies her exercise level due to pelvic heaviness and pressure. She has not been able to return to running PT-OP-C Subjective Start: 03/27/21 09:38 Freq: Status: Active Protocol: Document 06/04/21 12:53 [facility] (Rec: 06/04/21 14:01 [facility] [id number]) OP-PT Subjective Patient Comments Patient Comments pt reports with snezing she is noticing some pelvic floor engagement prior, she is more aware of where her pelvis is with walking, She felt strain in her pelvic floor when there is stress, it gets pinchy becuase her muscles wont unclench. It feels like her left side now instead of her right side. PT-OP-I Pelvic Floor Start: 03/27/21 09:38 Freq: Status: Active Protocol: Document 03/27/21 09:45 [facility] (Rec: 04/01/21 09:39 [facility] [id number]) Pelvic Floor Assessment Urine Pelvic Floor Surgery Yes: hysterectomy, bilateral salpingectomy, ant/post re Urinary Symptoms Falling Out Feeling/Heavy Other Urinary Symptoms pelvic pressure and heaviness that is described as being in the rectal region and present all day Bowel Other Bowel Symptoms pressure described over the rectum and bowels Pelvic Clock Pelvic Clock 3-6 Tenderness Pelvic Clock 6-9 Guarding,Tenderness Pelvic Clock Other scar tissue noted over the posterior pelvic floor and above the rectum, some scar tissue/muscle tightness noted on the right pelvic clock near the sacrospinous ligament fixation SEMG (uV) Baseline 2 Recruitment Pattern Good Relaxation Fair Holding Good Stability of Hold Good SEMG Stability of Rest Fair Contraction Ability Voluntary Contraction Moderate Voluntary Relaxation Moderate Manual Muscle Testing Left 4 Manual Muscle Testing Right 4 Manual Muscle Testing Anterior 4 Manual Muscle Testing Posterior 4 Muscle Endurance (Seconds) 8 Comments Pelvic Floor Comments pt is able to facilitate all parts of the levator ani and test 4/5 MMT. She has a much harder time relaxing her pelvic floor. PT-OP-J Posture/Palpation/Skin Start: 03/27/21 09:38 Freq: Status: Active Protocol: Document 03/27/21 09:45 [facility] (Rec: 04/01/21 09:39 [facility] [id number]) Palpation Assessment Location pelvic floor Palpation Location posterior and right lateral wall of the levator ani Palpation Findings Soft Tissue Tightness,Muscle Guarding Palpation Details scar tissue present over the posterior and right lateral wall PT-OP-Q Treatments Start: 03/27/21 09:38 Freq: Status: Active Protocol: Document 06/04/21 12:53 [facility] (Rec: 06/04/21 14:01 [facility] [id number]) Therapeutic Exercises Supine Exercises long sitting stretch Reps/Minutes hold 1-2 minutes crunches Reps/Minutes x 10 Comments with ball bridges with ball Reps/Minutes 10 reps happy baby and modifed pelvic floor stretch Supine Exercise Name for HEP Other Exercises down dog stretch Comments pt can feel a pressure point at the perienum goddess stretch Reps/Minutes hold 30 sec to 1 min Comments pt can feel her adductor in this position Manual Therapy Treatment Soft Tissue Mobilization right levator ani release Comments release of the right side of the levator ani with contract relax obturator internus Body Location left OI Comments obturator internus release on the left gentle scar tissue release of the posterior pelvic floor Body Location posterior pelvic floor directly at the region of the rectum, also worked L Mobilization Type Myofascial Release Intensity/Depth Superficial Comments good tolerance for scar tissue release both posterior and lateral cox of the levator ani PT-OP-T Assessment and Plan Start: 03/27/21 09:38 Freq: Status: Active Protocol: Document 06/04/21 12:53 [facility] (Rec: 06/04/21 14:01 [facility] [id number]) Physical Therapy Assessment Assessment Summary Assessment still some tightness and scar tissue above the rectum both centrally and on the left side . pt was tender in the obturator internus region on the left today. Still tight on the right iliococcygeus but no pain. Pt is cycling and we talked about her stretches to open up at the sitting bones following cycling. Brittney continues to make steady progress Physical Therapy Plan Frequency and Duration Frequency of Treatment 1x/Week Duration of Treatment 12 Plan of Care Start Date 05/15/21 Plan of Care End Date 08/07/21 Therapeutic Interventions Therapeutic Interventions Home Exercise Program,Manual Therapy,Neuromuscular Re- education,Patient/Caregiver Education,Self-Care/Home Management,Soft Tissue Mobilization,Therapeutic Exercises Modalities Biofeedback,Electric Stimulation Next Visit Focus/Plan Next Note Type Treatment Note Next Visit Plan Review stabilization exercises and stretches given today, progress as Brittney is able to tolerate
--- NOTE | 2021-06-17 17:49 | PT.OTN ---
Current Diagnoses Incomplete uterovaginal prolapse (06/17/21) Physical Therapy Treatment Note PT-OP-A Visit Information Start: 03/27/21 09:38 Freq: Status: Active Protocol: Document 06/17/21 11:20 [facility] (Rec: 06/17/21 12:17 [facility] [id number]) Out-Patient Physical Therapy Visit Information Visit Information Visit Type Treatment Note Visit Start Time 11:20 Visit Stop Time 12:05 Total Visit Minutes 45 Visit Number 6 PT-OP-B Current Condition Start: 03/27/21 09:38 Freq: Status: Active Protocol: Document 03/27/21 09:45 [facility] (Rec: 03/27/21 09:59 [facility] [id number]) Current Condition History of Current Condition Onset Date January 07 Current Complaints pt complains of rectal pressure primarily in the rectum and sphincter History of Current Condition pt presents to PT 10 weeks s/p salpingectomy/anterior and posterior repair/sacral spinous ligament fixation. Pt reports she was healing but then started having a odor which turned out to be a infection. She was given cream to use and after 5 days of discharge this did get better but she is still feeling that she hasn't healed all the way She still feels so much pressure in her rectum and sphincter, she feels like she has to clench because it still feels like it is trying to come out. It is worse in the last 2 weeks since she has gone back to work. She doesn' t have the bulge any more and she can void. She feels like her bowels can be liquidy and feels this may be due to her gal bladder. SHe feels like her pelvic pressure that was medially is not there but she feels it in the rectum. March 03 was her first day back to work. Treatment Goals Patient/Caregiver Goals Brittney's goals include reducing pelvic pressure so that she can return to a higher level of exercise and work without increased pelvic pressure Current Functional Impairments (Reported) Functional Limitations- Work/School limitations with standing duration prior to pelvic heaviness and guarding Functional Limitations- Recreation/ pt has been very limited with Hobbies her exercise level due to pelvic heaviness and pressure. She has not been able to return to running PT-OP-C Subjective Start: 03/27/21 09:38 Freq: Status: Active Protocol: Document 06/17/21 11:20 [facility] (Rec: 06/17/21 12:17 [facility] [id number]) OP-PT Subjective Patient Comments Patient Comments pt is seeing improvement, still has a little tightness on the left side but it is so much smaller, no problems on the right side. Not having the pelvic pressure. She has noted that if she doesn't walk with her back arched she feels so much better. She also has been able to work on her abdominal muscles and is feeling stronger Patient Reported Progress Improving PT-OP-I Pelvic Floor Start: 03/27/21 09:38 Freq: Status: Active Protocol: Document 03/27/21 09:45 [facility] (Rec: 04/01/21 09:39 [facility] [id number]) Pelvic Floor Assessment Urine Pelvic Floor Surgery Yes: hysterectomy, bilateral salpingectomy, ant/post re Urinary Symptoms Falling Out Feeling/Heavy Other Urinary Symptoms pelvic pressure and heaviness that is described as being in the rectal region and present all day Bowel Other Bowel Symptoms pressure described over the rectum and bowels Pelvic Clock Pelvic Clock 3-6 Tenderness Pelvic Clock 6-9 Guarding,Tenderness Pelvic Clock Other scar tissue noted over the posterior pelvic floor and above the rectum, some scar tissue/muscle tightness noted on the right pelvic clock near the sacrospinous ligament fixation SEMG (uV) Baseline 2 Recruitment Pattern Good Relaxation Fair Holding Good Stability of Hold Good SEMG Stability of Rest Fair Contraction Ability Voluntary Contraction Moderate Voluntary Relaxation Moderate Manual Muscle Testing Left 4 Manual Muscle Testing Right 4 Manual Muscle Testing Anterior 4 Manual Muscle Testing Posterior 4 Muscle Endurance (Seconds) 8 Comments Pelvic Floor Comments pt is able to facilitate all parts of the levator ani and test 4/5 MMT. She has a much harder time relaxing her pelvic floor. PT-OP-J Posture/Palpation/Skin Start: 03/27/21 09:38 Freq: Status: Active Protocol: Document 03/27/21 09:45 [facility] (Rec: 04/01/21 09:39 [facility] [id number]) Palpation Assessment Location pelvic floor Palpation Location posterior and right lateral wall of the levator ani Palpation Findings Soft Tissue Tightness,Muscle Guarding Palpation Details scar tissue present over the posterior and right lateral wall PT-OP-Q Treatments Start: 03/27/21 09:38 Freq: Status: Active Protocol: Document 06/17/21 11:20 [facility] (Rec: 06/17/21 17:48 [facility] [id number]) Manual Therapy Treatment Soft Tissue Mobilization MFR medial to ischial tuberosity L Mobilization Type Myofascial Release Body Position Hooklying Comments in hooklying with active knee flexion pin and stretch adductor release left Comments left adductors guarded and tight, pt notes she feels decreased guarding following treatment obturator internus Body Location left OI Comments obturator internus release on the left PT-OP-T Assessment and Plan Start: 03/27/21 09:38 Freq: Status: Active Protocol: Document 06/17/21 11:20 [facility] (Rec: 06/17/21 17:48 [facility] [id number]) Physical Therapy Assessment Goals 4 Impairment pt is not able to exercise at the intensity that she would like to due to being post surgical, healing, and c/o pelvic pressure and guarding. Nursing Home Goal (LTG) Brittney is able to gradually return to her exercise routine with the usp goal of returning to running eventually Pt is now starting to work towards more cardio and core stabilization as pelvic pressure has decreased LTG Duration 12 weeks 3 Impairment pelvic pain/pressure rated 3/ 10 [employer] Goal (LTG) pt reports a overall reduction in pelvic pain to 0-1/10 excellent progress LTG Duration 12 weeks 2 Impairment pelvic floor guarding and scar tissue present over the posterior and right lateral cox of the levator ani Short Term Goal (STG) Brittney is able to tolerate gentle scar tissue release promoting improved mobility of her pelvic floor GOAL MET STG Duration 4 weeks Nursing Home Goal (LTG) There is a reduction in scar tissue and guarding felt with pelvic floor examination in the posterior and right lateral wall. Goal met LTG Duration 12 weeks 1 Impairment pt c/o pelvic pressure and heaviness over the rectum and rectal sphincter Nursing Home Goal (LTG) With scar tissue release and MFR treatments Brittney reports overall reduction of pelvic pressure symptoms Pt is not currently complaining of the rectal or pelvic pressure. I am working with her for a return to exercise and progressing her core stabilization to prevent further pressure down on her pelvic floor LTG Duration 8 weeks Assessment Summary Assessment pt doing bettter overall, Obturator internus tightness on the left as well as adductor tightness and guarding. Pt notes improvement following treatment Physical Therapy Plan Frequency and Duration Frequency of Treatment 1x/Week Duration of Treatment 12 Plan of Care Start Date 05/15/21 Plan of Care End Date 08/07/21 Therapeutic Interventions Therapeutic Interventions Home Exercise Program,Manual Therapy,Neuromuscular Re- education,Patient/Caregiver Education,Self-Care/Home Management,Soft Tissue Mobilization,Therapeutic Exercises Modalities Biofeedback,Electric Stimulation Next Visit Focus/Plan Next Note Type Treatment Note Next Visit Plan Review stabilization exercises and stretches given today, progress as Chylsea is able to tolerate
--- NOTE | 2021-06-25 12:22 | PT.OTN ---
Current Diagnoses Incomplete uterovaginal prolapse (06/25/21) Physical Therapy Treatment Note PT-OP-A Visit Information Start: 03/27/21 09:38 Freq: Status: Active Protocol: Document 06/25/21 09:42 [facility] (Rec: 06/25/21 10:35 [facility] [id number]) Out-Patient Physical Therapy Visit Information Visit Information Visit Type Treatment Note Visit Start Time 09:45 Visit Stop Time 10:30 Total Visit Minutes 45 Visit Number 7 PT-OP-B Current Condition Start: 03/27/21 09:38 Freq: Status: Active Protocol: Document 03/27/21 09:45 [facility] (Rec: 03/27/21 09:59 [facility] [id number]) Current Condition History of Current Condition Onset Date January 07 Current Complaints pt complains of rectal pressure primarily in the rectum and sphincter History of Current Condition pt presents to PT 10 weeks s/p salpingectomy/anterior and posterior repair/sacral spinous ligament fixation. Pt reports she was healing but then started having a odor which turned out to be a infection. She was given cream to use and after 5 days of discharge this did get better but she is still feeling that she hasn't healed all the way She still feels so much pressure in her rectum and sphincter, she feels like she has to clench because it still feels like it is trying to come out. It is worse in the last 2 weeks since she has gone back to work. She doesn' t have the bulge any more and she can void. She feels like her bowels can be liquidy and feels this may be due to her gal bladder. SHe feels like her pelvic pressure that was medially is not there but she feels it in the rectum. March 03 was her first day back to work. Treatment Goals Patient/Caregiver Goals Brittney's goals include reducing pelvic pressure so that she can return to a higher level of exercise and work without increased pelvic pressure Current Functional Impairments (Reported) Functional Limitations- Work/School limitations with standing duration prior to pelvic heaviness and guarding Functional Limitations- Recreation/ pt has been very limited with Hobbies her exercise level due to pelvic heaviness and pressure. She has not been able to return to running PT-OP-C Subjective Start: 03/27/21 09:38 Freq: Status: Active Protocol: Document 06/25/21 09:42 [facility] (Rec: 06/25/21 10:35 [facility] [id number]) OP-PT Subjective Patient Comments Patient Comments pt felt like she could walk so much better following last treatment. Brittney did get her pelvic wand. She hasn't used it yet but planning on. Its still the left side that she feelsd the most tightness. She requests strengthening exercises for her back today as well as reviewing core exercises Patient Reported Progress Improving PT-OP-I Pelvic Floor Start: 03/27/21 09:38 Freq: Status: Active Protocol: Document 03/27/21 09:45 [facility] (Rec: 04/01/21 09:39 [facility] [id number]) Pelvic Floor Assessment Urine Pelvic Floor Surgery Yes: hysterectomy, bilateral salpingectomy, ant/post re Urinary Symptoms Falling Out Feeling/Heavy Other Urinary Symptoms pelvic pressure and heaviness that is described as being in the rectal region and present all day Bowel Other Bowel Symptoms pressure described over the rectum and bowels Pelvic Clock Pelvic Clock 3-6 Tenderness Pelvic Clock 6-9 Guarding,Tenderness Pelvic Clock Other scar tissue noted over the posterior pelvic floor and above the rectum, some scar tissue/muscle tightness noted on the right pelvic clock near the sacrospinous ligament fixation SEMG (uV) Baseline 2 Recruitment Pattern Good Relaxation Fair Holding Good Stability of Hold Good SEMG Stability of Rest Fair Contraction Ability Voluntary Contraction Moderate Voluntary Relaxation Moderate Manual Muscle Testing Left 4 Manual Muscle Testing Right 4 Manual Muscle Testing Anterior 4 Manual Muscle Testing Posterior 4 Muscle Endurance (Seconds) 8 Comments Pelvic Floor Comments pt is able to facilitate all parts of the levator ani and test 4/5 MMT. She has a much harder time relaxing her pelvic floor. PT-OP-J Posture/Palpation/Skin Start: 03/27/21 09:38 Freq: Status: Active Protocol: Document 03/27/21 09:45 [facility] (Rec: 04/01/21 09:39 [facility] [id number]) Palpation Assessment Location pelvic floor Palpation Location posterior and right lateral wall of the levator ani Palpation Findings Soft Tissue Tightness,Muscle Guarding Palpation Details scar tissue present over the posterior and right lateral wall PT-OP-Q Treatments Start: 03/27/21 09:38 Freq: Status: Active Protocol: Document 06/25/21 09:42 [facility] (Rec: 06/25/21 10:35 [facility] [id number]) Gym Equipment Cable Column (Body Solid) Rows Reps/Time 3 x10 reps Lat Pull Down Resistance 30 # Reps/Time 3 x 10 reps Therapeutic Exercises Supine Exercises long sitting stretch Reps/Minutes hold 1-2 minutes crunches Reps/Minutes x 10 Comments with ball bridges with ball Reps/Minutes 10 reps Other Exercises planks Other Exercise Name center and side planks Comments pt used to wall to assist with her side planks, cues for thoracic extension quadruped thoracic rotation Reps/Minutes x5 prone are lifts Reps/Minutes x 10 prone thoracic extension Reps/Minutes x 10 down dog stretch Reps/Minutes x 3 reps PT-OP-T Assessment and Plan Start: 03/27/21 09:38 Freq: Status: Active Protocol: Document 06/25/21 09:45 [facility] (Rec: 06/25/21 12:22 [facility] [id number]) Physical Therapy Assessment Assessment Summary Assessment pt continues to progress, able to progress the level of her exercises today, cues to keep neutral spine and for thoracic extension with her exercises. Physical Therapy Plan Frequency and Duration Frequency of Treatment 1x/Week Duration of Treatment 12 Plan of Care Start Date 05/15/21 Plan of Care End Date 08/07/21 Therapeutic Interventions Therapeutic Interventions Home Exercise Program,Manual Therapy,Neuromuscular Re- education,Patient/Caregiver Education,Self-Care/Home Management,Soft Tissue Mobilization,Therapeutic Exercises Modalities Biofeedback,Electric Stimulation Next Visit Focus/Plan Next Note Type Treatment Note Next Visit Plan Review stabilization exercises and stretches given today, progress as Chylsea is able to tolerate
--- NOTE | 2021-07-09 09:45 | PT.OTN ---
Current Diagnoses Incomplete uterovaginal prolapse (07/09/21) Physical Therapy Treatment Note PT-OP-A Visit Information Start: 03/27/21 09:38 Freq: Status: Active Protocol: Document 07/09/21 09:44 [facility] (Rec: 07/09/21 10:33 [facility] [id number]) Out-Patient Physical Therapy Visit Information Visit Information Visit Type Treatment Note Visit Start Time 09:45 Visit Stop Time 10:30 Total Visit Minutes 45 Visit Number 8 PT-OP-B Current Condition Start: 03/27/21 09:38 Freq: Status: Active Protocol: Document 03/27/21 09:45 [facility] (Rec: 03/27/21 09:59 [facility] [id number]) Current Condition History of Current Condition Onset Date January 07 Current Complaints pt complains of rectal pressure primarily in the rectum and sphincter History of Current Condition pt presents to PT 10 weeks s/p salpingectomy/anterior and posterior repair/sacral spinous ligament fixation. Pt reports she was healing but then started having a odor which turned out to be a infection. She was given cream to use and after 5 days of discharge this did get better but she is still feeling that she hasn't healed all the way She still feels so much pressure in her rectum and sphincter, she feels like she has to clench because it still feels like it is trying to come out. It is worse in the last 2 weeks since she has gone back to work. She doesn' t have the bulge any more and she can void. She feels like her bowels can be liquidy and feels this may be due to her gal bladder. SHe feels like her pelvic pressure that was medially is not there but she feels it in the rectum. March 03 was her first day back to work. Treatment Goals Patient/Caregiver Goals Brittney's goals include reducing pelvic pressure so that she can return to a higher level of exercise and work without increased pelvic pressure Current Functional Impairments (Reported) Functional Limitations- Work/School limitations with standing duration prior to pelvic heaviness and guarding Functional Limitations- Recreation/ pt has been very limited with Hobbies her exercise level due to pelvic heaviness and pressure. She has not been able to return to running PT-OP-C Subjective Start: 03/27/21 09:38 Freq: Status: Active Protocol: Document 07/09/21 09:44 [facility] (Rec: 07/09/21 10:33 [facility] [id number]) OP-PT Subjective Patient Comments Patient Comments pt has been to a few concerts and did alot of walking and dancing, she feels tight PT-OP-I Pelvic Floor Start: 03/27/21 09:38 Freq: Status: Active Protocol: Document 03/27/21 09:45 [facility] (Rec: 04/01/21 09:39 [facility] [id number]) Pelvic Floor Assessment Urine Pelvic Floor Surgery Yes: hysterectomy, bilateral salpingectomy, ant/post re Urinary Symptoms Falling Out Feeling/Heavy Other Urinary Symptoms pelvic pressure and heaviness that is described as being in the rectal region and present all day Bowel Other Bowel Symptoms pressure described over the rectum and bowels Pelvic Clock Pelvic Clock 3-6 Tenderness Pelvic Clock 6-9 Guarding,Tenderness Pelvic Clock Other scar tissue noted over the posterior pelvic floor and above the rectum, some scar tissue/muscle tightness noted on the right pelvic clock near the sacrospinous ligament fixation SEMG (uV) Baseline 2 Recruitment Pattern Good Relaxation Fair Holding Good Stability of Hold Good SEMG Stability of Rest Fair Contraction Ability Voluntary Contraction Moderate Voluntary Relaxation Moderate Manual Muscle Testing Left 4 Manual Muscle Testing Right 4 Manual Muscle Testing Anterior 4 Manual Muscle Testing Posterior 4 Muscle Endurance (Seconds) 8 Comments Pelvic Floor Comments pt is able to facilitate all parts of the levator ani and test 4/5 MMT. She has a much harder time relaxing her pelvic floor. PT-OP-J Posture/Palpation/Skin Start: 03/27/21 09:38 Freq: Status: Active Protocol: Document 03/27/21 09:45 [facility] (Rec: 04/01/21 09:39 [facility] [id number]) Palpation Assessment Location pelvic floor Palpation Location posterior and right lateral wall of the levator ani Palpation Findings Soft Tissue Tightness,Muscle Guarding Palpation Details scar tissue present over the posterior and right lateral wall PT-OP-Q Treatments Start: 03/27/21 09:38 Freq: Status: Active Protocol: Document 07/09/21 09:45 [facility] (Rec: 07/16/21 09:44 [facility] [id number]) Manual Therapy Treatment Soft Tissue Mobilization MFR medial to ischial tuberosity L Mobilization Type Myofascial Release Body Position Hooklying Comments in hooklying with active knee flexion pin and stretch adductor release left Comments left adductors guarded and tight, pt notes she feels decreased guarding following treatment obturator internus Body Location left OI Comments obturator internus release on the left Manual Techniques manual iliopsoas release Type iliopsoas release Body Position Hooklying Comments adriana test positon PT-OP-T Assessment and Plan Start: 03/27/21 09:38 Freq: Status: Active Protocol: Document 07/09/21 09:45 [facility] (Rec: 07/16/21 09:44 [facility] [id number]) Physical Therapy Assessment Assessment Summary Assessment worked on manual relese of the hip and obturator internus today as pt was feeling tight following traveling. Physical Therapy Plan Frequency and Duration Frequency of Treatment 1x/Week Duration of Treatment 12 Plan of Care Start Date 05/15/21 Plan of Care End Date 08/07/21 Therapeutic Interventions Therapeutic Interventions Home Exercise Program,Manual Therapy,Neuromuscular Re- education,Patient/Caregiver Education,Self-Care/Home Management,Soft Tissue Mobilization,Therapeutic Exercises Modalities Biofeedback,Electric Stimulation Next Visit Focus/Plan Next Note Type Treatment Note Next Visit Plan Review stabilization exercises and stretches given on , progress as Chylsea is able to tolerate
--- NOTE | 2021-07-16 14:21 | PT.OTN ---
Current Diagnoses Incomplete uterovaginal prolapse (07/16/21) Physical Therapy Treatment Note PT-OP-A Visit Information Start: 03/27/21 09:38 Freq: Status: Active Protocol: Document 07/16/21 09:45 [facility] (Rec: 07/16/21 10:35 [facility] [id number]) Out-Patient Physical Therapy Visit Information Visit Information Visit Type Treatment Note Visit Start Time 09:45 Visit Stop Time 10:30 Total Visit Minutes 45 Visit Number 9 PT-OP-B Current Condition Start: 03/27/21 09:38 Freq: Status: Active Protocol: Document 03/27/21 09:45 [facility] (Rec: 03/27/21 09:59 [facility] [id number]) Current Condition History of Current Condition Onset Date January 07 Current Complaints pt complains of rectal pressure primarily in the rectum and sphincter History of Current Condition pt presents to PT 10 weeks s/p salpingectomy/anterior and posterior repair/sacral spinous ligament fixation. Pt reports she was healing but then started having a odor which turned out to be a infection. She was given cream to use and after 5 days of discharge this did get better but she is still feeling that she hasn't healed all the way She still feels so much pressure in her rectum and sphincter, she feels like she has to clench because it still feels like it is trying to come out. It is worse in the last 2 weeks since she has gone back to work. She doesn' t have the bulge any more and she can void. She feels like her bowels can be liquidy and feels this may be due to her gal bladder. SHe feels like her pelvic pressure that was medially is not there but she feels it in the rectum. March 03 was her first day back to work. Treatment Goals Patient/Caregiver Goals Brittney's goals include reducing pelvic pressure so that she can return to a higher level of exercise and work without increased pelvic pressure Current Functional Impairments (Reported) Functional Limitations- Work/School limitations with standing duration prior to pelvic heaviness and guarding Functional Limitations- Recreation/ pt has been very limited with Hobbies her exercise level due to pelvic heaviness and pressure. She has not been able to return to running PT-OP-C Subjective Start: 03/27/21 09:38 Freq: Status: Active Protocol: Document 07/16/21 09:45 [facility] (Rec: 07/16/21 10:35 [facility] [id number]) OP-PT Subjective Patient Comments Patient Comments Feeling a lot of tightness in the right side of her groin. She feels like she is limping PT-OP-I Pelvic Floor Start: 03/27/21 09:38 Freq: Status: Active Protocol: Document 03/27/21 09:45 [facility] (Rec: 04/01/21 09:39 [facility] [id number]) Pelvic Floor Assessment Urine Pelvic Floor Surgery Yes: hysterectomy, bilateral salpingectomy, ant/post re Urinary Symptoms Falling Out Feeling/Heavy Other Urinary Symptoms pelvic pressure and heaviness that is described as being in the rectal region and present all day Bowel Other Bowel Symptoms pressure described over the rectum and bowels Pelvic Clock Pelvic Clock 3-6 Tenderness Pelvic Clock 6-9 Guarding,Tenderness Pelvic Clock Other scar tissue noted over the posterior pelvic floor and above the rectum, some scar tissue/muscle tightness noted on the right pelvic clock near the sacrospinous ligament fixation SEMG (uV) Baseline 2 Recruitment Pattern Good Relaxation Fair Holding Good Stability of Hold Good SEMG Stability of Rest Fair Contraction Ability Voluntary Contraction Moderate Voluntary Relaxation Moderate Manual Muscle Testing Left 4 Manual Muscle Testing Right 4 Manual Muscle Testing Anterior 4 Manual Muscle Testing Posterior 4 Muscle Endurance (Seconds) 8 Comments Pelvic Floor Comments pt is able to facilitate all parts of the levator ani and test 4/5 MMT. She has a much harder time relaxing her pelvic floor. PT-OP-J Posture/Palpation/Skin Start: 03/27/21 09:38 Freq: Status: Active Protocol: Document 03/27/21 09:45 [facility] (Rec: 04/01/21 09:39 [facility] [id number]) Palpation Assessment Location pelvic floor Palpation Location posterior and right lateral wall of the levator ani Palpation Findings Soft Tissue Tightness,Muscle Guarding Palpation Details scar tissue present over the posterior and right lateral wall PT-OP-Q Treatments Start: 03/27/21 09:38 Freq: Status: Active Protocol: Document 07/16/21 14:03 [facility] (Rec: 07/16/21 14:17 [facility] [id number]) Manual Therapy Treatment Soft Tissue Mobilization QL release right side Body Location right QL release Mobilization Type Myofascial Release Body Position Sidelying piriformis release on the right Body Location right piriformis riight iliopsoas release Body Location right iliopsoas Mobilization Type Myofascial Release Comments adriana test position Joint Mobilizations right posterior hip posterior glide Direction posterior hip glide Grade III Body Position Hooklying Comments good tolerance PT-OP-T Assessment and Plan Start: 03/27/21 09:38 Freq: Status: Active Protocol: Document 07/16/21 14:17 [facility] (Rec: 07/16/21 14:19 [facility] [id number]) Physical Therapy Assessment Assessment Summary Assessment Brittney reported tightness in the right groin and feeling like she has been limping. I tried several methods today to release tension here. She wasd even with her leg length, she was tight in her posterior hip capsule, tight in the Q QL and L3 lumbar spine Physical Therapy Plan Frequency and Duration Frequency of Treatment 1x/Week Duration of Treatment 12 Plan of Care Start Date 05/15/21 Plan of Care End Date 08/07/21 Therapeutic Interventions Therapeutic Interventions Home Exercise Program,Manual Therapy,Neuromuscular Re- education,Patient/Caregiver Education,Self-Care/Home Management,Soft Tissue Mobilization,Therapeutic Exercises Modalities Biofeedback,Electric Stimulation Next Visit Focus/Plan Next Note Type Treatment Note Next Visit Plan Review stabilization exercises and stretches given on , progress as Brittney is able to tolerate
--- NOTE | 2021-10-14 17:01 | PT.OTN ---
Current Diagnoses Incomplete uterovaginal prolapse (10/14/21) Physical Therapy Treatment Note PT-OP-A Visit Information Start: 03/27/21 09:38 Freq: Status: Active Protocol: Document 10/14/21 16:03 [facility] (Rec: 10/14/21 17:01 [facility] [id number]) Out-Patient Physical Therapy Visit Information Visit Information Visit Type Treatment Note Visit Start Time 16:00 Visit Stop Time 16:45 Total Visit Minutes 45 Visit Number 10 Evaluation Information Evaluation Date 03/27/21 PT-OP-B Current Condition Start: 03/27/21 09:38 Freq: Status: Active Protocol: Document 03/27/21 09:45 [facility] (Rec: 03/27/21 09:59 [facility] [id number]) Current Condition History of Current Condition Onset Date January 07 Current Complaints pt complains of rectal pressure primarily in the rectum and sphincter History of Current Condition pt presents to PT 10 weeks s/p salpingectomy/anterior and posterior repair/sacral spinous ligament fixation. Pt reports she was healing but then started having a odor which turned out to be a infection. She was given cream to use and after 5 days of discharge this did get better but she is still feeling that she hasn't healed all the way She still feels so much pressure in her rectum and sphincter, she feels like she has to clench because it still feels like it is trying to come out. It is worse in the last 2 weeks since she has gone back to work. She doesn' t have the bulge any more and she can void. She feels like her bowels can be liquidy and feels this may be due to her gal bladder. SHe feels like her pelvic pressure that was medially is not there but she feels it in the rectum. March 03 was her first day back to work. Treatment Goals Patient/Caregiver Goals Brittney's goals include reducing pelvic pressure so that she can return to a higher level of exercise and work without increased pelvic pressure Current Functional Impairments (Reported) Functional Limitations- Work/School limitations with standing duration prior to pelvic heaviness and guarding Functional Limitations- Recreation/ pt has been very limited with Hobbies her exercise level due to pelvic heaviness and pressure. She has not been able to return to running PT-OP-C Subjective Start: 03/27/21 09:38 Freq: Status: Active Protocol: Document 10/14/21 16:03 [facility] (Rec: 10/14/21 17:01 [facility] [id number]) OP-PT Subjective Patient Comments Patient Comments things are going good, sometimes tightness but doing pretty good overall, some tightness on the left side, no feelings of pressure She is able to do weighted squats and she has felt okay with that. PT-OP-I Pelvic Floor Start: 03/27/21 09:38 Freq: Status: Active Protocol: Document 03/27/21 09:45 [facility] (Rec: 04/01/21 09:39 [facility] [id number]) Pelvic Floor Assessment Urine Pelvic Floor Surgery Yes: hysterectomy, bilateral salpingectomy, ant/post re Urinary Symptoms Falling Out Feeling/Heavy Other Urinary Symptoms pelvic pressure and heaviness that is described as being in the rectal region and present all day Bowel Other Bowel Symptoms pressure described over the rectum and bowels Pelvic Clock Pelvic Clock 3-6 Tenderness Pelvic Clock 6-9 Guarding,Tenderness Pelvic Clock Other scar tissue noted over the posterior pelvic floor and above the rectum, some scar tissue/muscle tightness noted on the right pelvic clock near the sacrospinous ligament fixation SEMG (uV) Baseline 2 Recruitment Pattern Good Relaxation Fair Holding Good Stability of Hold Good SEMG Stability of Rest Fair Contraction Ability Voluntary Contraction Moderate Voluntary Relaxation Moderate Manual Muscle Testing Left 4 Manual Muscle Testing Right 4 Manual Muscle Testing Anterior 4 Manual Muscle Testing Posterior 4 Muscle Endurance (Seconds) 8 Comments Pelvic Floor Comments pt is able to facilitate all parts of the levator ani and test 4/5 MMT. She has a much harder time relaxing her pelvic floor. PT-OP-J Posture/Palpation/Skin Start: 03/27/21 09:38 Freq: Status: Active Protocol: Document 03/27/21 09:45 [facility] (Rec: 04/01/21 09:39 [facility] [id number]) Palpation Assessment Location pelvic floor Palpation Location posterior and right lateral wall of the levator ani Palpation Findings Soft Tissue Tightness,Muscle Guarding Palpation Details scar tissue present over the posterior and right lateral wall PT-OP-Q Treatments Start: 03/27/21 09:38 Freq: Status: Active Protocol: Document 10/14/21 16:03 [facility] (Rec: 10/14/21 17:01 [facility] [id number]) Therapeutic Exercises Supine Exercises lower abdominal progression, 1 a b , 2 a b Reps/Minutes x 10 each Comments pt able to complete level 2 b now the hundred pilates exercise Reps/Minutes x 100 presses quick flicks Reps/Minutes x 10 reps max 50 uv long sitting stretch Reps/Minutes hold 1-2 minutes crunches Reps/Minutes x 10 Comments with ball happy baby and modifed pelvic floor stretch Supine Exercise Name for HEP Comments pt feels pulling in her groin with this stretch pelvic floor long holds Reps/Minutes 10 seconds on 10 seconds off Comments 35.5 average 66.3 max able to relax to baseline Other Exercises goddess stretch Reps/Minutes hold 30 sec to 1 min Comments pt can feel her adductor in this position PT-OP-T Assessment and Plan Start: 03/27/21 09:38 Freq: Status: Active Protocol: Document 10/14/21 16:03 [facility] (Rec: 10/14/21 17:01 [facility] [id number]) Physical Therapy Assessment Goals 4 Impairment pt is not able to exercise at the intensity that she would like to due to being post surgical, healing, and c/o pelvic pressure and guarding. 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 Goal met LTG Duration 12 weeks 3 Impairment pelvic pain/pressure rated 3/ 10 Shelter Goal (LTG) pt reports a overall reduction in pelvic pain to 0-1/10 goal met LTG Duration 12 weeks 2 Impairment pelvic floor guarding and scar tissue present over the posterior and right lateral cox of the levator ani Short Term Goal (STG) Brittney is able to tolerate gentle scar tissue release promoting improved mobility of her pelvic floor GOAL MET STG Duration 4 weeks Shelter Goal (LTG) There is a reduction in scar tissue and guarding felt with pelvic floor examination in the posterior and right lateral wall. Goal met LTG Duration 12 weeks 1 Impairment pt c/o pelvic pressure and heaviness over the rectum and rectal sphincter Shelter Goal (LTG) With scar tissue release and MFR treatments Brittney reports overall reduction of pelvic pressure symptoms Pt is not currently complaining of the rectal or pelvic pressure. I am working with her for a return to exercise and progressing her core stabilization to prevent further pressure down on her pelvic floor GOAL MET LTG Duration 8 weeks Progress Towards Goals Progress Towards Goals Goals Met Assessment Summary Assessment Brittney was seen today for a recheck of her pelvic floor. She is doing great overall and has met all her established goals. She will continue to work on her stretches as she has to work a bit on fully relaxing her pelvic floor but this is improved overall a great deal. Brittney will be discharged at this time to a [facility] Physical Therapy Plan Discharge Physical Therapy Discharge Reasons Goals Met
== END 2021-12-12 16:09 | disposition home or self-care (01) ==
LOC: PHYS 16:00
PROVIDERS: Family Provider Family Medicine; PCP Family Medicine; Referring Provider Family Medicine; Visit Provider Family Medicine
DX: N81.2 Incomplete uterovaginal prolapse (principal)
CPT/HCPCS: 97110; 97140; 97161; 97535

== ENCOUNTER → 2022-02-04 19:10 | Outpatient (CLI) | payer OTHER, SELFPAY ==
[2021-01-07 12:23] VITALS: BMI 33.2
[2022-02-04 20:25] LABS: Influenza A - CEPHEID Flu A NEGATIVE (NEGATIVE); Influenza B - CEPHEID Flu B NEGATIVE (NEGATIVE); Respiratory Syncytial Virus POSITIVE (Negative)
[2022-02-04 20:27] LABS: COVID-19 CEPHEID 4-PLEX PCR Negative (Negative)
== END ==
PROVIDERS: Family Provider Family Medicine; PCP Family Medicine; Visit Provider Nurse Practitioner Family
DX: J02.9 Acute pharyngitis, unspecified (principal); Z20.822 Contact with and (suspected) exposure to COVID-19
CPT/HCPCS: 0241U; 87070

== ENCOUNTER 2023-01-01 07:57 | Emergency (ER) | payer OTHER, SELFPAY ==
[2021-01-07 12:23] VITALS: BMI 33.2
[2023-01-01] VITALS (21 sets, daily range): BP systolic 108–128; BP diastolic 65–96; PULSE 46–74; RESP 14–24; TEMP 37; O2SAT 97–100; BMI 31.4
--- NOTE | 2023-01-01 08:21 | ED.CHESTPAIN ---
HPI - Chest Pain General Chief Complaint: Chest Pain Stated Complaint: chest pain Time Seen by Provider: 01/01/23 07:58 Source: patient Mode of arrival: Ambulatory Limitations: no limitations History of Present Illness HPI narrative: 37-year-old female nonsmoker without chronic medical history presents with a chief complaint of episodes of sharp and stabbing left-sided chest pain off and on for the past week or so. She states that when the pain is there last for about 30 minutes and then goes away. She denies any obvious associated symptoms or cardiac equivalent such as dizziness, weakness or lightheadedness, shortness of breath, cough, nausea, vomiting or unexplained diaphoresis. She denies any exertional symptoms or exercise intolerance. She denies obvious provocation, palliation or radiation. She denies recent travel, trauma or injury. She takes no control and denies any history of clot. She has no lower extremity pain, swelling or redness Related Data Previous Rx's Medication Instructions Recorded fluconazole 150 mg tablet 150 mg PO DAILY #1 tab 02/24/21 (Diflucan) Allergies Allergy/AdvReac Type Severity Reaction Status Date / Time ondansetron AdvReac Headache Verified 01/01/23 08:07 Review of Systems Review of Systems Narrative: GENERAL: Denies chills, fatigue, malaise, fever, sweats. HEENT: Denies sinus pain, ear pain, sore throat, difficulty swallowing, dizziness. RESPIRATORY: Denies dyspnea, cough, wheezing, hemoptysis, sputum. CARDIOVASCULAR: See HPI GASTROINTESTINAL: Denies nausea, vomiting, abdominal pain, diarrhea, constipation, melena. : Denies dysuria, frequency, incontinence, hematuria, urinary retention. MUSCULOSKELETAL: denies weakness, joint pain, or bony pain SKIN: Denies rash, skin lesions, or other NEUROLOGIC: Denies weakness, headache, numbness, change in speech, confusion, seizures, incoordination. PSYCHIATRIC: No concerning psychosocial issues. 12 point review of systems is negative except for those stated above Patient History Medical History Spontaneous vaginal delivery Hyperemesis gravidarum Abnormal Pap smear of cervix (2007) HPV (human papilloma virus) infection (2006) Irregular periods/menstrual cycles (2003) Chicken pox (1991) Asthma (2010) Hayfever (2009) PCOS (polycystic ovarian syndrome) (2009) Surgical History Hx laparoscopic cholecystectomy (10/06/18) Family History Mother Age: 58 Ovarian cyst Sister Age: 34 MS (multiple sclerosis) Brother No problems noted. Grandfather No problems noted. Grandmother No problems noted. Sister No problems noted. Daughter No problems noted. Daughter No problems noted. Social History marital status: number of children: 2 household members: spouse, family and children lives independently: Yes caregiver/support person: No housing: house occupational status: employed Smoking Status: Never smoker second hand exposure: No alcohol intake: current substance use type: does not use Smoking Status: Never smoker alcohol intake frequency: holidays/special occasions only Substance Use Type: does not use Exam Narrative Exam Narrative: GENERAL: [37] year old patient appears stated age. Well-developed patient, in mild distress. HEAD: Atraumatic. Normocephalic. EYES: Pupils equal round and reactive. Extraocular motions intact. No scleral icterus. No injection or drainage. ENT: Nose without bleeding, purulent drainage. Throat without erythema, tonsillar hypertrophy or exudate. Airway patent. NECK: Trachea midline. Non tender CARDIOVASCULAR: Regular rate and rhythm without murmurs, gallops, or rubs. RESPIRATORY: Clear to auscultation. Breath sounds equal bilaterally. No wheezes, rales, or rhonchi. GASTROINTESTINAL: Abdomen soft, non-tender, nondistended. EXTREMITIES: No edema or joint tenderness. BACK: Nontender without deformity or crepitance. No flank tenderness. NEURO: AOx3. SKIN: No rash or erythema of visible areas Initial Vital Signs Initial Vital Signs: Vital Signs Temperature 98.6 F 01/01/23 08:06 Pulse Rate 60 01/01/23 08:06 Respiratory Rate 16 01/01/23 08:06 Blood Pressure 121/79 01/01/23 08:06 Pulse Oximetry 100 01/01/23 08:06 Oxygen Delivery Method Room Air 01/01/23 08:06 Course Orders Ordered: ED Orders 01/01/23 08:25 Complete Blood Count AUTO DIFF Stat Comprehensive Metabolic Panel Stat D Dimer Stat Lipase Stat Magnesium Stat Troponin & CK Cardiac Panel Stat 01/01/23 11:40 Troponin & CK Cardiac Panel Stat Discontinued Medications Sodium Chloride (Normal Saline 0.9%) 1,000 mls @ 1,000 mls/hr IV BOLUS ONE Stop: 01/01/23 09:04 Last Infusion: 01/01/23 09:30 Dose: Infused Documented By: Admin: 01/01/23 08:30 Dose: 1,000 mls/hr Documented By: RONNIE Pantoprazole Sodium (Pantoprazole 40 Mg Vial) 40 mg IV NOW ONE Stop: 01/01/23 08:06 Last Admin: 01/01/23 09:12 Dose: Not Given Documented By: RONNIE Vital Signs Vital signs: Vital Signs - 8 hr 01/01/23 08:06 01/01/23 08:17 01/01/23 08:30 Temperature 98.6 F Pulse Rate 60 74 Respiratory Rate 16 Blood Pressure 121/79 126/70 Pulse Oximetry 100 99 Oxygen Delivery Method Room Air 01/01/23 08:30 01/01/23 09:00 01/01/23 09:00 Temperature Pulse Rate 51 L 52 L Respiratory Rate 17 22 Blood Pressure 117/82 Pulse Oximetry 100 100 Oxygen Delivery Method 01/01/23 09:18 01/01/23 09:18 01/01/23 09:30 Temperature Pulse Rate 60 Respiratory Rate 24 Blood Pressure 121/96 H 120/74 Pulse Oximetry 100 Oxygen Delivery Method 01/01/23 09:30 01/01/23 09:45 01/01/23 09:45 Temperature Pulse Rate 49 L 46 L Respiratory Rate 18 15 Blood Pressure 111/71 Pulse Oximetry 100 100 Oxygen Delivery Method 01/01/23 10:00 01/01/23 10:00 01/01/23 10:12 Temperature Pulse Rate 51 L Respiratory Rate 16 Blood Pressure 123/70 128/65 Pulse Oximetry 97 Oxygen Delivery Method 01/01/23 10:12 01/01/23 10:15 01/01/23 10:15 Temperature Pulse Rate 53 L 54 L Respiratory Rate 23 14 Blood Pressure 118/71 Pulse Oximetry 97 99 Oxygen Delivery Method 01/01/23 10:30 01/01/23 10:30 01/01/23 10:45 Temperature Pulse Rate 51 L Respiratory Rate 22 Blood Pressure 119/71 108/67 Pulse Oximetry 100 Oxygen Delivery Method 01/01/23 10:45 01/01/23 11:00 01/01/23 11:01 Temperature Pulse Rate 52 L 51 L 53 L Respiratory Rate 18 19 19 Blood Pressure Pulse Oximetry 100 98 97 Oxygen Delivery Method 01/01/23 11:01 01/01/23 11:15 01/01/23 11:15 Temperature Pulse Rate 57 L Respiratory Rate 21 Blood Pressure 117/76 119/76 Pulse Oximetry 100 Oxygen Delivery Method 01/01/23 11:29 01/01/23 11:30 01/01/23 11:30 Temperature Pulse Rate 54 L 55 L Respiratory Rate 15 22 Blood Pressure 116/73 Pulse Oximetry 100 100 Oxygen Delivery Method 01/01/23 11:45 01/01/23 11:45 01/01/23 12:00 Temperature Pulse Rate 57 L Respiratory Rate 22 Blood Pressure 121/72 115/75 Pulse Oximetry 99 Oxygen Delivery Method 01/01/23 12:00 01/01/23 12:15 01/01/23 12:15 Temperature Pulse Rate 57 L 57 L Respiratory Rate 21 16 Blood Pressure 117/77 Pulse Oximetry 99 97 Oxygen Delivery Method 01/01/23 12:30 01/01/23 12:30 Temperature Pulse Rate 71 Respiratory Rate 18 Blood Pressure 123/83 Pulse Oximetry 97 Oxygen Delivery Method MDM - Chest Pain Lab Data 01/01/23 08:25 01/01/23 08:25 Labs: Lab Results 01/01/23 01/01/23 Range/Units 08:25 11:40 WBC 3.8 L (4.5-11.0) X10^3/uL RBC 4.72 (4.0-5.2) X10^6/uL Hgb 13.8 (12.0-16.0) g/dL Hct 41.0 (36-46) % MCV 86.8 (80-100) fL MCH 29.3 (26-34) PG MCHC 33.7 (30-36) % RDW 13.2 (11.6-14.8) % Plt Count 224 (150-400) X10^3/uL Neut % (Auto) 46.7 L (50-75) % Lymph % (Auto) 41.1 H (25-40) % [place] % (Auto) 5.1 (3-14) % Eos % (Auto) 6.4 H (2-4) % Baso % (Auto) 0.7 (0-2) % Neut # (Auto) 1800 (5371-7126) /uL Lymph # (Auto) 1600 (8560-6394) /uL [place] # (Auto) 200 (0-900) /uL Eos # (Auto) 200 (0-450) /uL Baso # (Auto) 0 (0-100) /uL D-Dimer 436 (<500) ng/ml Sodium 136 L (137-145) mmol/L Potassium 4.0 (3.4-5.1) mmol/L Chloride 104 (98-107) mmol/L Carbon Dioxide 26 (22-32) mmol/L BUN 19 H (7-17) mg/dL Creatinine 0.63 (0.52-1.04) mg/dL Estimated GFR > 60 (>60) mL/min BUN/Creatinine Ratio 30.2 H (6-22) Glucose 98 (70-100) mg/dL Calcium 9.3 (8.4-10.2) mg/dL Magnesium 2.0 (1.6-2.3) mg/dL Total Bilirubin 0.6 (0.2-1.3) mg/dL AST 28 (14-36) IU/L ALT 22 (<35) IU/L Alkaline Phosphatase 56 (38-126) U/L Total Creatine Kinase 99 83 (30-135) U/L Troponin I < 0.012 < 0.012 (0.01-0.034) ng/mL Total Protein 7.3 (6.3-8.2) g/dL Albumin 4.4 (3.5-5.0) g/dL Globulin 2.9 (1.7-4.1) g/dL Albumin/Globulin Ratio 1.5 (1.0-2.8) Lipase 72 (23-300) U/L Point of Care Testing Test Results Negative Urine Dip Bedside Urine Glucose Negative Bedside Urine Bilirubin - Negative Bedside Urine Ketone - Negative Urine Specific [place] 1.005 Bedside Urine Occult Blood - Negative Bedside Urine pH 7.5 Bedside Urine Protein - Negative Bedside Urine Urobilinogen - Negative Bedside Urine Nitrite - Negative Bedside Urine Leukocytes - Negative Esterase MDM Narrative Medical decision making narrative: [37] year old patient presents with chest pain Multiple etiologies for patient's symptoms considered including, but not limited to: [Cardiac ischemia versus pulmonary embolism versus inflammatory condition such as costochondritis or pericarditis] Prior Charts reviewed in our EMR Primary Historian: patient Labs reviewed and interpreted by myself: No leukocytosis or left shift, no signs of anemia, D-dimer below cutoff, troponin negative x2 Imaging reviewed: Chest x-ray without acute process Patient's history and physical exam are reassuring, multiple diagnoses considered as noted above. Cardiac ischemia considered unlikely given lack of exertional symptoms, no exercise intolerance, lack of other cardiac equivalent symptoms, no ischemic change on EKG, troponin negative x2, low heart score. PE considered but thought unlikely given D-dimer below cutoff. Inflammatory condition such as costochondritis pericarditis considered but lack of reproducibility or persistent symptoms raised the question of another alternate diagnosis, possibly esophageal spasm, reflux or other. Patient's symptoms improved over duration of stay with above-stated therapies. Findings and discharge diagnosis discussed with patient/family followed by verbalization of understanding Return precautions discussed with patient/family whom verbalize understanding of diagnosis and plan Discharge Plan Departure Patient Disposition: Home Clinical Impression: Atypical chest pain Instructions: DI for Atypical Chest Pain Activity Restrictions/Additional Instructions: *You have been diagnosed with [atypical chest pain. As we discussed your history and physical exam as well as EKG and blood work are reassuring and there is no evidence of heart attack, blood clot or other life-threatening cause of your symptoms that would require a specific and immediate intervention.] *What to do: *Please continue to take your regular medications as directed. [ ] New medication prescriptions sent to your pharmacy: [ ] [ ] New medication written as a paper prescription [ ] No new medications given *Please follow up with your primary care provider in 2-3 days, call for an appointment. Let them know you were seen in the Emergency Department and that we ask that you be seen in follow up. We will electronically transmit a record of today's note if your PCP is in our system *If you do not have a primary care provider please contact the [facility] Resource line at [phone]. They will ask some questions about your medical history and help get you set up with a doctor in the community. *Return to Emergency Department if you should have any new, worsening or concerning symptoms, such as [fever greater than 101 F, shaking chills, worsening pain, persistent vomiting or other bothersome symptoms] Prescriptions: No Action fluconazole [Diflucan] 150 mg tablet 150 mg PO DAILY Qty: 1 1RF Rx Instructions: Repeat in 3 days if symptoms persist. Referrals: Kathryn Leyva MD [Primary Care Provider] - Stand Alone Forms: Patient Portal/API
[2023-01-01] MEDS: SODIUM CHLORIDE 0.9% 1,000 ML 1000 ML IV (08:30)
[2023-01-01 08:48] LABS: Add Manual Diff / Slide Review NO; Basophils Absolute Auto 0 /uL (0-100); Basophils Percent Auto 0.7 % (0-2); Eosinophils Absolute Auto 200 /uL (0-450); Eosinophils Percent Auto 6.4 % (2-4); Hemoglobin 13.8 g/dL (12.0-16.0); Lymphocytes Absolute Auto 1600 /uL (1100-4500); Lymphocytes Percent Auto 41.1 % (25-40); Mean Corpuscular HGB Conc 33.7 % (30-36); Mean Corpuscular Hemoglobin 29.3 PG (26-34); Mean Corpuscular Volume 86.8 fL (80-100); Monocytes Absolute Auto 200 /uL (0-900); Monocytes Percent Auto 5.1 % (3-14); Neutrophils Absolute Auto 1800 /uL (1500-7000); Neutrophils Percent Auto 46.7 % (50-75); Platelet Count 224 X10^3/uL (150-400); Red Blood Cell Count 4.72 X10^6/uL (4.0-5.2); Red Cell Distribution Width 13.2 % (11.6-14.8); White Blood Cell Count 3.8 X10^3/uL (4.5-11.0)
[2023-01-01 08:57] LABS: D Dimer 436 ng/ml (<500)
[2023-01-01 09:22] LABS: Alanine Aminotransferase 22 IU/L (<35); Albumin 4.4 g/dL (3.5-5.0); Albumin Globulin Ratio 1.5 (1.0-2.8); Alkaline Phosphatase 56 U/L (38-126); Aspartate Aminotransferase 28 IU/L (14-36); BUN Creatinine Ratio 30.2 (6-22); Bilirubin Total 0.6 mg/dL (0.2-1.3); Blood Urea Nitrogen 19 mg/dL (7-17); Calcium 9.3 mg/dL (8.4-10.2); Carbon Dioxide 26 mmol/L (22-32); Chloride 104 mmol/L (98-107); Creatine Kinase 99 U/L (30-135); Estimated Glomerular Filt Rate > 60 mL/min (>60); Globulin 2.9 g/dL (1.7-4.1); Glucose 98 mg/dL (70-100); HEMOLYSIS < 15 (0-50); Lipase 72 U/L (23-300); Sodium 136 mmol/L (137-145); Total Protein 7.3 g/dL (6.3-8.2)
[2023-01-01 09:33] LABS: Troponin I < 0.012 ng/mL (0.01-0.034)
--- NOTE | 2023-01-01 09:57 | PC.NURSE ---
Pt states her resting HR is 45-49 at baseline. Provider aware.
--- NOTE | 2023-01-01 09:59 | PC.NURSE ---
Pt states chronic pain L-shoulder for months.
[2023-01-01 11:59] LABS: Creatine Kinase 83 U/L (30-135)
[2023-01-01 12:12] LABS: Troponin I < 0.012 ng/mL (0.01-0.034)
== END 2023-01-01 12:48 | disposition home or self-care (01) ==
PROVIDERS: Emergency Provider Emergency Medicine; Family Provider Family Medicine; PCP Family Medicine
DX: R07.89 Other chest pain (principal)
CPT/HCPCS: 36415; 80053; 81003; 81025; 82550; 83690; 83735; 84484; 85025; 85379; 99283; 99284